=== PATIENT | female | born 1960 | race Caucasian/White ===

== ENCOUNTER 2022-12-01 11:21 | Outpatient (CLI) | payer MEDICARE, SELFPAY ==
[2022-12-01 13:53] LABS: Basophils Percent Auto 0.4 % (0.2-1.2); Eosinophils Absolute Auto 0.1 K/mm3 (0-0.3); Eosinophils Percent Auto 1.6 % (0-4.4); Hematocrit 40.8 % (37.0-47.0); Hemoglobin 13.3 g/dL (12.0-15.0); Immature Granulocyte Absolute 0.02 K/mm3 (0.00-0.031); Immature Granulocyte Percent A 0.2 % (0-0.5); Lymphocytes Absolute Auto 2.59 K/mm3 (0.9-3.2); Lymphocytes Percent Auto 32.3 % (18.3-44.2); Mean Corpuscular HGB Conc 32.6 g/dl (32-36); Mean Corpuscular Hemoglobin 30.6 pg (26-34); Mean Platelet Volume 9.1 fl (7.4-10.4); Monocytes Absolute Auto 0.6 K/mm3 (0.1-0.6); Monocytes Percent Auto 7.4 % (2.6-8.5); Neutrophils Absolute Auto 4.7 K/mm3 (1.3-6.7); Neutrophils Percent Auto 58.1 % (45.5-73.1); Platelet Count Result 270 k/mm3 (150-375); Red Blood Count 4.34 M/mm3 (4.2-5.4); Red Cell Distribution Width 12.8 % (11.5-14.5)
[2022-12-01 17:36] LABS: Alanine Aminotransferase 14 U/L (6-35); Albumin Level 4.4 g/dL (3.5-5.1); Alkaline Phosphatase 75 U/L (38-126); Anion Gap 6 mmol/L (8-16); Aspartate Amino Transferase 46 U/L (14-36); Bilirubin,Total 0.9 mg/dL (0.2-1.3); Blood Urea Nitrogen 10 mg/dL (7-17); Calcium 9.5 mg/dL (8.4-10.2); Carbon Dioxide 28 mmol/L (22-30); Chloride 104 mmol/L (98-107); Cholesterol 171 mg/dL (0-200); Estimated Glomerular Filt Rate > 60; Glucose 98 mg/dL (65-110); HDL Direct 47 mg/dL; Sodium 138 mmol/L (137-145); Triglycerides 163 mg/dL (<150)
[2022-12-01 17:47] LABS: LDL Cholesterol Direct 84 mg/dL
[2022-12-01 18:19] LABS: Iron 87 ug/dL (37-170)
[2022-12-01 18:30] LABS: Percent Iron Saturation 35 % (20-50)
[2022-12-01 18:37] LABS: Free T4 Free Thyroxine 1.41 ng/mL (0.78-2.19)
== END 2022-12-01 11:22 | disposition home or self-care (01) ==
LOC: ANHGOSHLAB 11:23
PROVIDERS: PCP Emergency Medicine; Visit Provider Emergency Medicine
DX: D50.9 Iron deficiency anemia, unspecified (principal); Z83.3 Family history of diabetes mellitus; E89.0 Postprocedural hypothyroidism
CPT/HCPCS: 36415; 80053; 80061; 82728; 83036; 83540; 83550; 84439; 84443; 84480; 85025

== ENCOUNTER 2023-02-13 13:17 | Outpatient (CLI) | payer MEDICARE, SELFPAY ==
[2023-02-13 21:58] LABS: Appearance Urine Cloudy (Clear); Bacteria Urine None Seen /hpf; Bilirubin Urine Negative (Negative); Blood Urine Negative (Negative); Calcium Oxalate Crystals Urine Present /hpf; Color Urine Yellow (Yellow); Glucose Urine UA Negative (Negative); Hyaline Casts Urine Present /lpf; Ketones Urine Negative (Negative); Leukocyte Esterase Ur Trace LEU/UL (Negative); Nitrate Urine Negative (Negative); Protein Urine Negative (Negative); RBC Urine 0-2 /hpf (0-2); Squamous Epithelial Cell Urine Occasional /hpf (Few); WBC Urine 0-5 /hpf
[2023-02-13 21:59] LABS: Add Urine Microscopic? YES
== END 2023-02-13 13:18 | disposition home or self-care (01) ==
LOC: ANHGOSHLAB 13:19
PROVIDERS: PCP Emergency Medicine; Visit Provider Emergency Medicine
DX: R30.0 Dysuria (principal)
CPT/HCPCS: 81001

== ENCOUNTER 2023-04-26 01:15 | Day surgery (SDC) | payer MEDICARE, MEDICAID, SELFPAY ==
[2023-04-12 14:53] VITALS: BMI 30.1
--- NOTE | 2023-04-24 11:05 | SUR.PREOP ---
Patient called regarding upcoming procedure. Voicemail left regarding appointment times.
[2023-04-26 10:49] VITALS: BP 136/44; PULSE 48; RESP 18; TEMP 36.1; O2SAT 100
[2023-04-26] MEDS: LACTATED RINGERS 1,000 ML 150 ML IV CONT (11:02)
--- NOTE | 2023-04-26 11:13 | WPDANESEPPF ---
Anes - Initial Pre Proc Eval Procedure: Operation Date: 04/26/23 12:00 Proposed Procedures p Esophagogastroduodenoscopy & Colonoscopy - Demetrius Perla MD Date/Time: 04/26/23 11:13 Surgeon: Demetrius Perla MD Pre Op Diagnosis: Peptic ulcer,hx colon polyps Patient Data Age: 63 Gender: F Height: 1.7 m Weight: 86.5 kg Last Vital Signs Temp 97 F L 04/26/23 10:49 Pulse 48 L 04/26/23 10:49 Resp 18 04/26/23 10:49 BP 136/44 L 04/26/23 10:49 Pulse Ox 100 04/26/23 10:49 O2 Del Method Room Air 04/26/23 10:49 Allergies Allergy/AdvReac Type Severity Reaction Status Date / Time No Known Allergies Allergy Unknown Verified 04/26/23 10:47 Home Medications Medication Instructions Recorded Confirmed Type fluticasone propionate 50 1 spray intranasal PRN PRN Sinus 12/01/22 04/12/23 History mcg/actuation nasal Symptoms spray,suspension omeprazole 40 mg capsule,delayed 40 mg PO DAILY 12/01/22 04/12/23 History release simvastatin 40 mg tablet 40 mg PO DAILY 12/01/22 04/12/23 History escitalopram oxalate 10 mg tablet 10 mg PO DAILY #90 tabs 12/06/22 04/26/23 Rx metoprolol tartrate 50 mg tablet 50 mg PO DAILY #90 tabs 12/06/22 04/12/23 Rx oxybutynin chloride 10 mg 10 mg PO DAILY #90 tabs 12/06/22 04/12/23 Rx tablet,extended release 24 hr sucralfate 100 mg/mL oral 10 ml PO TID PRN gastrointestinal 04/07/23 04/12/23 Rx suspension (Carafate) spasms or cramping #400 mL calcium 600 mg capsule 600 mg PO DAILY 04/12/23 04/12/23 History cholecalciferol (vitamin D3) 50 50 mcg PO DAILY 04/12/23 04/12/23 History mcg (2,000 unit) capsule (Vitamin D3) cranberry 400 mg capsule 400 mg PO DAILY 04/12/23 04/12/23 History docusate sodium 100 mg capsule 100 mg PO DAILY 04/12/23 04/12/23 History (Stool Softener) mecobalamin (vitamin B12) 3,000 mg PO DAILY 04/12/23 04/12/23 History vitamin B complex 1 cap PO DAILY 04/12/23 04/12/23 History levothyroxine 75 mcg tablet 75 mcg PO DAILY #90 tabs 04/19/23 Rx topiramate 100 mg tablet 100 mg PO DAILY #90 tabs 04/19/23 Rx Patient hx anesthesia problems: none Family hx anesthesia problems: none Results Review: All pre-operative results and documents have been reviewed as part of the pre-operative evaluation. [facility] Past Medical History Medical History Allergies Anxiety GERD (gastroesophageal reflux disease) Headache, migraine HTN (hypertension) Thyroid disorder Family History Family History Father No problems noted. Social History Social History (Updated 04/07/23 @ 11:37 by Geri Rojo MA) Smoking status: Never smoker Alcohol intake: current Substance use: never Substance use type: does not use Do You Feel Safe in your Home?: Yes Lack of Transportation: YES Lack of Food: Never True Current Housing: I Have Housing Concerned About Future Housing: No Difficulty Paying Gas/Electric Bills: No Difficulty Paying for Meds: No Currently Unemployed: No Education: High School Diploma/GED Difficulty w/ Childcare or Family Care: No Living arrangements: with family Spiritual care concerns: No Anes - Eval Final PreProcedure Day of Procedure 04/26/23 11:13 Patient weight: obese Heart: regular rate and rhythm Lungs: clear to auscultation Airway: Mallampati scale class II Neurological: alert and oriented Last oral intake: >/= 8 hours ASA classification: III Emergent: no Anesthetic plan: proceed Anesthesia type and monitoring: general GIVS and standard monitoring Results Review: All pre-operative results and documents have been reviewed as part of the pre-operative evaluation. Informed Consent: The patient's anesthetic plan and its attendant risks and benefits were discussed with the patient/family/POA. Questions were solicited and answers provided to the
--- NOTE | 2023-04-26 11:45 | PM.HPGS ---
History of Present Illness History of Present Illness Consent: Risks, benefits, and alternatives have been discussed and questions answered. Patient agrees to proceed with procedure. Chief complaint: Peptic ulcer,hx colon polyps Narrative: Nirali Oropeza is a 63 year old female with upper abdominal pain for few weeks, she is using ppi. Also had colon polyps. Review of Systems Constitutional: Constitutional: Denies headache(s) and Denies weakness Eyes: Eyes: Denies blurry vision ENT: Reports Normal hearing present, Denies headache(s) and Denies neck pain Cardiovascular: Cardiovascular: Denies chest pain and Denies dyspnea Respiratory: Respiratory: Denies dyspnea Gastrointestinal: Gastrointestinal: Reports no additional gastrointestinal complaints Genitourinary: Genitourinary: Denies dysuria Musculoskeletal: Musculoskeletal: Denies neck pain Integumentary/Breasts: Skin/Breast: Denies dry skin Neurologic: Reports Normal hearing present, Denies headache(s) and Denies weakness Psychiatric: Psychiatric: Denies anxiety Endocrine: Endocrine: Denies change in body appearance Hematologic/Lymphatic: Hematologic/Lymphatic: Denies easy bleeding Allergic/Immunologic: Allergic/Immunologic: Denies urticaria PMFSH Past Medical History Medical History (Updated 04/26/23 @ 11:46 by Demetrius Perla MD) Abdominal pain Allergies Anxiety Colon polyp GERD (gastroesophageal reflux disease) Headache, migraine HTN (hypertension) Thyroid disorder Family History Family History Father No problems noted. Social History Social History (Updated 04/07/23 @ 11:37 by Geri Rojo MA) Smoking status: Never smoker Alcohol intake: current Substance use: never Substance use type: does not use Do You Feel Safe in your Home?: Yes Lack of Transportation: YES Lack of Food: Never True Current Housing: I Have Housing Concerned About Future Housing: No Difficulty Paying Gas/Electric Bills: No Difficulty Paying for Meds: No Currently Unemployed: No Education: High School Diploma/GED Difficulty w/ Childcare or Family Care: No Living arrangements: with family Spiritual care concerns: No Meds Home Medications and Allergies Home Medications Medication Instructions Recorded Confirmed Type fluticasone propionate 50 1 spray intranasal PRN PRN Sinus 12/01/22 04/12/23 History mcg/actuation nasal Symptoms spray,suspension omeprazole 40 mg capsule,delayed 40 mg PO DAILY 12/01/22 04/12/23 History release simvastatin 40 mg tablet 40 mg PO DAILY 12/01/22 04/12/23 History escitalopram oxalate 10 mg tablet 10 mg PO DAILY #90 tabs 12/06/22 04/26/23 Rx metoprolol tartrate 50 mg tablet 50 mg PO DAILY #90 tabs 12/06/22 04/12/23 Rx oxybutynin chloride 10 mg 10 mg PO DAILY #90 tabs 12/06/22 04/12/23 Rx tablet,extended release 24 hr sucralfate 100 mg/mL oral 10 ml PO TID PRN gastrointestinal 04/07/23 04/12/23 Rx suspension (Carafate) spasms or cramping #400 mL calcium 600 mg capsule 600 mg PO DAILY 04/12/23 04/12/23 History cholecalciferol (vitamin D3) 50 50 mcg PO DAILY 04/12/23 04/12/23 History mcg (2,000 unit) capsule (Vitamin D3) cranberry 400 mg capsule 400 mg PO DAILY 04/12/23 04/12/23 History docusate sodium 100 mg capsule 100 mg PO DAILY 04/12/23 04/12/23 History (Stool Softener) mecobalamin (vitamin B12) 3,000 mg PO DAILY 04/12/23 04/12/23 History vitamin B complex 1 cap PO DAILY 04/12/23 04/12/23 History levothyroxine 75 mcg tablet 75 mcg PO DAILY #90 tabs 04/19/23 Rx topiramate 100 mg tablet 100 mg PO DAILY #90 tabs 04/19/23 Rx Allergies Allergy/AdvReac Type Severity Reaction Status Date / Time No Known Allergies Allergy Unknown Verified 04/26/23 10:47 Vital Signs Vital Signs - 24 hr 04/26/23 10:49 Temperature 97 F L Pulse Rate 48 L Respiratory Rate 18 Blood Pressure 136/4
[2023-04-26 12:19] VITALS: BP 122/59; PULSE 62; RESP 22; O2SAT 100
[2023-04-26 12:29] VITALS: BP 118/57; PULSE 60; RESP 14; O2SAT 100
[2023-04-26 12:39] VITALS: BP 118/56; PULSE 60; RESP 14; O2SAT 100
== END 2023-04-26 12:53 | disposition home or self-care (01) ==
PROVIDERS: PCP Emergency Medicine; Visit Provider Internal Medicine Gastroenterology
PROC: 0DJ08ZZ Inspection of Upper Intestinal Tract, Via Natural or Artificial Opening Endoscopic (ICD-10-PCS; CPT 43235; principal; 2023-04-26 12:00)
DX: Z12.11 Encounter for screening for malignant neoplasm of colon (principal); K63.5 Polyp of colon; D12.0 Benign neoplasm of cecum; K64.8 Other hemorrhoids; K44.9 Diaphragmatic hernia without obstruction or gangrene; K29.50 Unspecified chronic gastritis without bleeding; I10 Essential (primary) hypertension; E07.9 Disorder of thyroid, unspecified; K21.9 Gastro-esophageal reflux disease without esophagitis; F41.9 Anxiety disorder, unspecified; E66.9 Obesity, unspecified; Z68.29 Body mass index [BMI] 29.0-29.9, adult; Z87.11 Personal history of peptic ulcer disease
CPT/HCPCS: 45385; 43239; 88305; J2704; J7120

== ENCOUNTER 2023-12-29 11:26 | Outpatient (CLI) | payer MEDICARE, SELFPAY ==
[2023-12-29 18:01] LABS: Basophils Percent Auto 0.6 % (0.2-1.2); Eosinophils Absolute Auto 0.1 K/mm3 (0-0.3); Eosinophils Percent Auto 1.3 % (0-4.4); Hematocrit 40.4 % (37.0-47.0); Immature Granulocyte Absolute 0.01 K/mm3 (0.00-0.031); Immature Granulocyte Percent A 0.2 % (0-0.5); Lymphocytes Percent Auto 36.5 % (18.3-44.2); Mean Corpuscular HGB Conc 32.2 g/dl (32-36); Mean Corpuscular Hemoglobin 30.3 pg (26-34); Mean Corpuscular Volume 94.2 fl (80-100); Mean Platelet Volume 8.9 fl (7.4-10.4); Monocytes Absolute Auto 0.5 K/mm3 (0.1-0.6); Monocytes Percent Auto 8.4 % (2.6-8.5); Neutrophils Absolute Auto 3.3 K/mm3 (1.3-6.7); Platelet Count Result 283 k/mm3 (150-375); Red Blood Count 4.29 M/mm3 (4.2-5.4); Red Cell Distribution Width 12.6 % (11.5-14.5); White Blood Count 6.3 K/mm3 (4.5-10.0)
[2023-12-29 18:07] LABS: Alanine Aminotransferase 19 U/L (6-35); Albumin Level 4.3 g/dL (3.5-5.1); Alkaline Phosphatase 69 U/L (38-126); Anion Gap 7 mmol/L (4-12); Aspartate Amino Transferase 45 U/L (14-36); Bilirubin,Total 1.1 mg/dL (0.2-1.3); Blood Urea Nitrogen 9 mg/dL (7-17); Calcium 9.7 mg/dL (8.4-10.2); Carbon Dioxide 29 mmol/L (22-30); Chloride 102 mmol/L (98-107); Cholesterol 160 mg/dL (0-200); Estimated Glomerular Filt Rate > 60; Glucose 85 mg/dL (65-110); HDL Direct 49 mg/dL; Potassium 5.1 mmol/L (3.4-5.0); Sodium 138 mmol/L (137-145); Triglycerides 159 mg/dL (<150)
[2023-12-29 18:20] LABS: LDL Cholesterol Direct 65 mg/dL
[2023-12-29 19:00] LABS: Free T4 Free Thyroxine 1.13 ng/mL (0.78-2.19)
== END 2023-12-29 11:27 | disposition home or self-care (01) ==
LOC: ANHGOSHLAB 11:27
PROVIDERS: PCP Emergency Medicine; Visit Provider Student in an Organized Health Care Education/Training Program
DX: E03.9 Hypothyroidism, unspecified (principal); D50.9 Iron deficiency anemia, unspecified
CPT/HCPCS: 36415; 80053; 80061; 82728; 84439; 84443; 85025

== ENCOUNTER 2023-12-29 11:36 | Outpatient (CLI) | payer MEDICARE, SELFPAY ==
--- NOTE | ~2023-12-29 | XR_ITS ---
XR hip RT min 2V 12/29/2023 11:46 Indication: Right hip pain Procedure: 2 views right hip Comparison: 10/29/2017 Findings: Mild osteoarthritis right hip. No fracture, subluxation or dislocation. No foreign bodies. Impression: 1: Mild osteoarthritis of the right hip. Reviewed, dictated and finalized at location B. Impression: 1: Mild osteoarthritis of the right hip.
== END 2023-12-29 11:37 | disposition home or self-care (01) ==
LOC: GOSHIMG 11:37
PROVIDERS: PCP Student in an Organized Health Care Education/Training Program; Visit Provider Student in an Organized Health Care Education/Training Program
DX: M16.11 Unilateral primary osteoarthritis, right hip (principal)
CPT/HCPCS: 73502

== ENCOUNTER 2024-04-09 20:28 | Outpatient (NON) | payer MEDICARE, SELFPAY ==
--- OUTSIDE RECORDS SUMMARY | 2024-04-09 20:32 | XMS_ITS | Encounter Summary ---
Author Organization [facility] Address [address] [facility] [place] [address] Phone Care Team Providers Care Java Manager Name Role Phone BnejiRhonda nicholson Lion AVILA, DRAIN CLEANER Unavailable Leticia David MD Unavailable Boom Ram [facility] Primary Care Provider [phone] Reason for Visit * Reason Comments Medication Refill Encounter Details Date Type Department Care Team (Late st Contact Info) Description 10/16/2022 Refill [facility] - Primary Care - Felix [address] [place] [address] Abel Pope MD [address] [place] [address] Medication Refill Social History Tobacco Use Types Packs/Day Years Used Date Smoking Tobacco: Former Cigarettes Q uit: 09/11/1978 Smokeless Tobacco: Never Alcohol Use Standard Drinks/Week Comments No 0 (1 standard drink = 0.6 oz pur e alcohol) use to drink heavy-quit 1989 PHQ-2 Answer Date Recorded Total Score - Questions 1-9 0 01/11 Sexually Active Control Partners Comments Never Comments No Sex and Gender Information Value Date Recorded Sex Assigned at Not on file Legal Sex Female 11:42 PM CDT Gender Identity Not on file Sexual Orientation Not on file COVID-19 Exposure Response Date Recorded In the last 10 days, have yo u been in contact with someone who was confirmed or suspected to have Coronavirus/COVID-19? No / Unsure 10/03/2022 1:23 PM CDT documented as of this encounter Miscellaneous Notes * Telephone Encounter - Kimber New RN - 10/17/2022 8:20 AM CDT Refill requested too soon. documented in this encounter Plan of Treatment Not on file documented as of this encounter Visit Diagnoses Diagnosis Mechanical low back pain Lumbago documented in this encounter Additional Health Concerns Assessment Noted Time PHQ-9 Depression Total Score: 0 01/21/20 2:00 PM LIFE SCIENCES TEACHER documented as of this encounter Care Teams Java Manager Relationship Specialty Start Date End Date Boom Ram PAC [address] [place] [address] PCP - General Physician Cell Installer 01/20/22 Rhonda Leblanc, SYSTEMS DEVELOPMENT CONSULTANT, DRAIN CLEANER Nurse Practitioner Advanced Practice Nurse 11/20/15 Leticia David MD [address] [phone] Consulting Physician Endocrinology 09/28/21 documented as of this encounter
--- OUTSIDE RECORDS SUMMARY | 2024-04-09 20:32 | XMS_ITS | Clinical Summary ---
Author Organization [facility] Address [address] [facility], [address] [address] Phone Care Team Providers Care Marine Painter Name Role Phone Rhonda Leblanc APRN, GREGG Unavailable Leticia David MD Unavailable Boom Ram PAC Primary Care Provider [phone] Allergies No known active allergies Medications aspirin EC 81 MG Tablet Delayed Response Take 81 mg by mouth daily. Active cetirizine (ZYRTEC) 10 MG Tablet Take 1 Tab by mouth daily. 90 Tab 3 7 Active metoprolol tartrate (LOPRESSOR) 50 MG Tablet Take 1 Tab by mouth 2 times daily. 180 Tab 3 7 Active CRANBERRY PO Take 1 Tab by mouth 2 times daily. Active Biotin 1000 MCG Tablet Take 1 Tab by mouth daily. Active Cholecalciferol 50 mcg Tablet Take 1 Tab by mouth daily. Active omeprazole (PriLOSEC) 40 MG CAPSULE DELAYED RELEASE Take 40 mg by mouth daily. 2 Active topiramate (TOPAMAX) 100 MG TabletIndication s:Migraine Take 1 Tablet by mouth daily. Indications: Migraine Headache 60 Tablet 1 3 Active Cyanocobalamin (VITAMIN B-12 PO) Take by mouth. Active oxybutynin (DITROPAN-XL) 10 MG TABLET SR 24 HR TAKE 1 TABLET BY MOUTH EVERY DAY 90 Tablet 3 Active levothyroxine (SYNTHROID) 75 MCG Tablet TAKE 1 TABLET BY MOUTH EVERY DAY 90 Tablet 1 3 Active cyclobenzaprine (FLEXERIL) 10 MG Tablet TAKE 1 TABLET BY MOUTH NIGHTLY 90 Tablet 3 Active fluticasone (FLONASE) 50 MCG/ACT SuspensionIndica tions:Environmen solo and seasonal allergies SPRAY 1-2 SPRAYS INTO EACH NOSTRIL EVERY DAY DIRECTED 48 mL 1 3 Active meloxicam (MOBIC) 15 MG TabletIndication s:Mechanical low back pain TAKE 1 TABLET BY MOUTH EVERY DAY 90 Tablet 3 Active simvastatin (ZOCOR) 40 MG Tablet TAKE 1 TABLET BY MOUTH EVERY DAY IN THE EVENING 90 Tablet 4 Active escitalopram (LEXAPRO) 20 MG TabletIndication s:Depression, unspecified depression type TAKE 1 TABLET BY MOUTH EVERY DAY 90 Tablet 4 Active Active Problems Problem Noted Date Diagnosed Date History of gastric bypass 06/07/2022 Obesity due to excess calories without serious c omorbidity 09/26/2019 Normochromic anemia 10/25/2018 Right low back pain 08/07/2017 Postoperative hypothyroidism 02/06/2017 Iron deficiency anemia due to chronic blood loss 02/06/2017 Prediabetes 02/06/2017 High blood pressure 09/16/2016 Depression 09/16/2016 Osteoarthritis of multiple joints 09/16/2016 Migraine headache 09/16/2016 Hyperlipidemia 09/16/2016 Irritable bowel syndrome without diarrhea 2016 Anxiety 09/16/2016 Seasonal allergic rhinitis 09/16/2016 Thyroid nodule 03/10/2016 Gastritis without bleeding 11/20/2015 B12 deficiency Resolved Problems Problem Noted Date Diagnosed Date Resolved Date Normocytic anemia 04/27/2017 11/04/2017 Immunizations Immunization Administration Dates Next Due Covid-19, Mrna, Lnp-s, Pf, 3 0 Mcg/0.3 Ml Dose (MediaBrix) 06/29/2020,06/08/2020 Influenza Vaccine 02/26/2013, 2,11/22/2010,2009,12/29/2008,01/29/2008,01/11/2007 Influenza Vaccine greater than 3 yrs 01/29/2016 Influenza Vaccine, Quadrivalent, PF 01/20/2022,1 ,01/24/2017 Influenza, Injectable, Quadrivalent 01/14/2016 Influenza, Seasonal, Injecta ble, Undefined 01/29/2016 TDAP Vaccine 02/23/2016 Tuberculin Skin Test; Purifi ed Protein Derivative Solutiol 12/04/2000 Family History Medical History Relation Name Comments Heart Attack Father Heart Disease Father Cancer Maternal Uncle Liver Cancer Maternal Uncle Alzheimer's Disease Mother Cancer Sister 1 rectal-56 and k idney Diabetes Sister 1 Diabetes Sister 2 Relation Name Status Comments Father Maternal Uncle Mother Sister 1 Sister 2 Social History Tobacco Use Types Packs/Day Years Used Date Smoking Tobacco: Former Cigarettes Q uit: 09/11/1978 Smokeless Tobacco: Never Tobacco Cessation:Counseling Given: Not Answered Alcohol Use Standard Drinks/Week Comments No 0 [...] on file Sexual Orientation Not on file Last Filed Vital Signs Vital Sign Reading Time Taken Comments Blood Pressure 124/80 10/03/2022 1:44 PM CDT Pulse 51 10/03/2022 1:44 PM CDT Temperature 36.1 ??C (97 ??F) 10/03/2022 1:44 PM CDT Respiratory Rate 18 10/03/2022 1:44 PM CDT Oxygen Saturation 98% 10/03/2022 1:44 PM CDT Inhaled Oxygen Concentration - - Weight 93.4 kg (206 lb) 10/03/2022 1:44 PM CDT Height 170.2 cm (5' 7 ) 10/03/2022 1:44 PM CDT Body Mass Index 32.26 10/03/2022 1:44 PM CDT Plan of Treatment Health Maintenance Due Date Last Done Comments Hepatitis C Virus (HCV) Screening 1960 Cologuard 2010 Immunochemical Fecal Occult Blood 2010 Pneumococcal Immunization (50+ years) (1 of 1 - PCV) 2010 Zoster Immunization (1 of 2) 2010 Influenza Immunization (#1) 2023 11, 01/10/2019, 01/24/2017, Additional history exists SARS-COV-2 Immunization ( season) 2023 06/29/2020, 06/08/2020 Mammogram 03/11/2024 03/11/2022, 09/11, 09/04/2017, Additional history exists Colonoscopy 10/21/2025 10/21/2020, 12/12, 12/29/2014 Colorectal Cancer Screening 10/21/2025 Td Immunization Every 10 Years (Adults With 1 Tdap) 02/22/2026 02/23/2016 Respiratory Syncytial Virus (RSV) Immunization (Adult) (1 - 1-dose 75+ series) 2035 10/21/2020, 12/12, 12/29/2014 Pap Smear Discontinued 10/04/2016 Cervical Cancer Screening (CCS) Discontinued HPV/Cotest Discontinued Hepatitis B Immunization Aged Out No longer eligible based on patient's age to complete this topic Meningococcal Immunization (ACWY) Aged Out No longer eligible based on patient's age to complete this topic Pneumococcal Immunization Combined Aged Out No longer eligible based on patient's age to complete this topic Rotavirus Immunization Aged Out No lo nger eligible based on patient's age to complete this topic Procedures Procedure Name Priority Date/Time Associated Diagnosis Comments PILAR SCREENING BILATERAL DIGITAL W CAD W AWILDA Routine 03/11/2022 3:35 PM SPEECH AND DRAMA TEACHER Encounter for screening mammogram for malignant neoplasm of breast PATHOLOGY CYTOLOGY BED AND BREAKFAST OPERATOR Routine 10/04/2016 4:18 PM CDT Well woman exam with routine gynecological exam HM COLONOSCOPY Routine 12/29/2014 from Last 3 Months or Most Recently Relevant to Health Maintenance Results * PILAR SCREENING BILATERAL DIGITAL W CAD W AWILDA (03/11/2022 3:35 PM SPEECH AND DRAMA TEACHER) Anatomical Region Laterality Modality breast Bilateral Mammography 03/11/2022 2:58 PM SPEECH AND DRAMA TEACHER Narrative 03/15/2022 8:16 AM SPEECH AND DRAMA TEACHER - PILAR SCREENING BILATERAL DIGITAL W CAD W AWILDA BILATERAL DIGITAL SCREENING MAMMOGRAM 3D/2D WITH CAD WITH MEDIOLATERAL OBLIQUE CRANIOCAUDAL: 03/11/2022 The study was acquired using digital technology and interpreted from soft copy. Current study was also evaluated with ICAD version 7.2. 2D digital mammographic views, as well as 3D digital tomosynthesis were performed in the CC and MLO projections. ?? CLINICAL: Routine screening. Patient has no complaints. No personal history of cancer. No family history of breast cancer. Patient reports over a 35 pound weight loss since last mammogram. ?? COMPARISONS: Comparison is made to exams dated: ??10/09/2019, 09/04/2017, [facility] ?? BREAST TISSUE:The tissue of both breasts is predominantly fatty. ?? FINDINGS: No significant masses, calcifications, or other findings are seen in either breast. ?? There has been no significant interval change. IMPRESSION: BI-RAD 1 NEGATIVE There is no mammographic evidence of malignancy. A 1 year screening mammogram is recommended. ?? A letter will be sent to the patient with these results. The patient will be entered into a reminder system with a target due date of 1 year for her next screening exam. Electronically signed by: Cory Hassan M.D. ? ll/penrad:03/11/2022 18:49:58 ?? Senior Production Supervisor(s): Marie ?? RT Cruz(Marcio)(M), [facility] letter sent: Normal Exam ?? Reading location: [facility] BI-RADS: 1 Negative Procedure Note Cory Hassan MD - 03/15/2022 - PILAR SCREENING BILATERAL DIGITAL W CAD W AWILDA BILATERAL DIGITAL SCREENING MAMMOGRAM 3D/2D WITH CAD WITH MEDIOLATERAL OBLIQUE CRANIOCAUDAL: 03/11/2022 The study was acquired using digital technology and interpreted from soft copy. Current study was also evaluated with ICAD version 7.2. 2D digital mammographic views, as well as 3D digital tomosynthesis were performed in the CC and MLO projections. CLINICAL: Routine screening. Patient has no complaints. No personal history of cancer. No family history of breast cancer. Patient reports over a 35 pound weight loss since last mammogram. COMPARISONS: Comparison is made to exams dated: 10/09/2019, 09/04/2017, and 10/04/2016 [facility]. BREAST TISSUE:The tissue of both breasts is predominantly fatty. FINDINGS: No significant masses, calcifications, or other findings are seen in either breast. There has been no significant interval change. IMPRESSION: BI-RAD 1 NEGATIVE There is no mammographic evidence of malignancy. A 1 year screening mammogram is recommended. A letter will be sent to the patient with these results. The patient will be entered into a reminder system with a target due date of 1 year for her next screening exam. Electronically signed by: Cory quinonez/diana:03/11/2022 18:49:58 Senior Production Supervisor(s): RT Jeyson(R)(M), [facility] letter sent: Normal Exam Reading location: [facility] BI-RADS: 1 Negative us Boom Ram [facility] IMG MAMMO ORDERABLES Final R esult * PATHOLOGY CYTOLOGY BED AND BREAKFAST OPERATOR (10/04/2016 4:18 PM CDT) SPECIMEN ADEQUACY Satisfactory for evaluation, squamous cells only. History of hysterectomy noted 10/07/2016 1:40 PM CDT [facility] DESCRIPTIVE DIAGNOSIS Negative for intraepithelial lesions. No dysplastic cells present. 10/07/2016 1:40 PM CDT [facility] MATED EXAMINATION Analysis of this sample has been assisted by an automated imaging and review system ([employer] [facility], ED01, [place], [place]). This case is further evaluated and finalized by a baggage inspector and/or pathologist. 10/07/2016 1:40 PM CDT [facility] DISCLAIMER The PAP smear is a screening test designed to detect cancerous or precancerous cells of the uterine cervix. It is one of the best means available for detection of cervical cancer but still carries an inherent false-negative rate. ??The consequences of a false-negative PAP result can be minimized by adhering to current screening guidelines. ??The following are general guidelines recommended by the ACS, ASCP, ASCCP, and ACOG: ??PAP testing is recommended every three years for women 21-29, Co-Testing , a PAP test in conjunction with an HPV (Human Papillomavirus) test for women ages 30-65, and no PAP or HPV testing for women under the age of 21 or older than 65 unless clinically indicated. 10/07/2016 1:40 PM CDT [facility] Case Report Gynecologic Cytology Report ? Case: [id number] ? Authorizing Provider: ??Harvey Roger MD ? Collected: ? 10/04/2016 04:18 PM ? Ordering Location: ? [facility] ? Received: ?10/04/2016 04:18 PM ? GROUP - OBSTETRICS AND ? GYNECOLOGY - ANASTACIO ? First Screen: ?Lian Bettencourt ? Specimen: ?Cervical/Endocerv ical, liquid based thin layer preparation (Thin Prep??), ? CERVIX/ENDOCERVIX ? 10/07/2016 1:40 PM CDT [facility] HPV Reflex if ASCUS? No 10/07/2016 1:40 PM CDT [facility] Specimen of unknown material (specimen) (Cervix/Endocerv ix) 10/04/2016 4:18 PM CDT 10/04/2016 4:18 PM CDT us Harvey Roger MD PATHOLOGY/CYTOLOGY ORDERABL ES Final Result Performing Organization Address [facility] de Phone Number [facility] [address] [place] [address], * COLONOSCOPY (12/29/2014) us Nora Haywood MD PROCEDURE/MINOR SURGICA L ORDERABLES Final Result from Last 3 Months or Most Recently Relevant to Health Maintenance Insurance MEDICAID [place] MEDICARE C AETNA MEDICARE C [facility] on file Care Teams Marine Painter Relationship Specialty Start Date End Date Boom Ram PAC [address] [place] [address] PCP - General Physician Hospital Corpsman 01/20/22 Rhonda Leblanc, MARKETING STRATEGY MANAGER, ALUMINUM SIDING APPLICATOR Nurse Practitioner Advanced Practice Nurse 11/20/15 Leticia David MD [address] [phone] Consulting Physician Endocrinology 09/28/21
--- OUTSIDE RECORDS SUMMARY | 2024-04-09 20:32 | XMS_ITS | Referral Summary ---
Author Organization [facility] Address [address] [place] [address] Care Team Providers Care Sales Support Engineer Name Role Phone Martha Gray MD Primary Care Provider [phone] Source Comments [facility],non-owned Affiliates and Associated Physician Practices is amultiple site organization consisting of ambulatory clinics and hospital sitesin [place], [place], [place] and [place]. This disclosure is being madepursuant to the Care Everywhere program and may not contain all information available regarding this patient. Last updated 17.[facility] Allergies No known active allergies Medications * Be aware that medications may not be up to date on this document. Alwaysverify current medications with the patient. Medication Sig Dispensed Refills Start Date End Date Status ferrous sulfate EC (FERROUS SULFATE) 324 (65 FE) MG tablet Take 325 mg by mouth. 10/27/2016 Active levothyroxine (SYNTHROID) 25 MCG tablet Take by mouth. 09/30/2016 Active metoprolol tartrate (LOPRESSOR) 50 MG tablet Take 50 mg by mouth BID. 05/20/2016 Active traMADol (ULTRAM) 50 MG tablet Take 50 mg by mouth q8h PRN. 0 05/10/2016 Active simvastatin (ZOCOR) 20 MG tablet Take 20 mg by mouth DAILY. 1 04/27/2016 Active hyoscyamine 0.125 MG tablet 2 05/11/2016 Active omeprazole (PRILOSEC) 40 MG capsule 9 05/09/2016 Active cetirizine (ZYRTEC) 10 MG tablet Take 10 mg by mouth QDAY PRN (Allergies). 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 Social History Tobacco Use Types Packs/Day Years Used Date Smoking Tobacco: Never Smokeless Tobacco: Never Alcohol Use Standard Drinks/Week Comments No 0 (1 standard drink = 0.6 oz pur e alcohol) Sex and Gender Information Value Date Recorded Sex Assigned at Not on file Gender Identity Not on file Sexual Orientation Not on file Last Filed Vital Signs Vital Sign Reading Time Taken Comments Blood Pressure 149/90 06/12/2018 3:36 PM CDT Pulse 50 06/12/2018 3:36 PM CDT Temperature 36.8 ??C (98.2 ??F) 06/12/2018 12:24 PM C DT Respiratory Rate 16 06/12/2018 3:36 PM CDT Oxygen Saturation 100% 06/12/2018 3:36 PM CDT Inhaled Oxygen Concentration - - Weight 118.8 kg (262 lb) 06/21/2018 9:57 AM CDT Height 170.2 cm (5' 7 ) 06/21/2018 9:57 AM CDT Body Mass Index 41.04 06/21/2018 9:57 AM CDT Plan of Treatment Not on file Procedures Procedure Name Priority Date/Time Associated Diagnosis Comments BASIC METABOLIC PANEL (CALCIUM TOTAL) Routine 06/14/2016 10:00 AM CDT from Last 3 Months or Most Recently Relevant to Health Maintenance Results * BASIC METABOLIC PANEL (CALCIUM TOTAL) (06/14/2016 10:00 AM CDT) BUN 10 7 - 26 mg/dL [facility] Creatinine 0.7 0.6 - 1.2 mg/dL [facility] Sodium 139 136 - 145 mmol/L [facility] Potassium 4.4 3.5 - 4.5 mmol/L [facility] Chloride 104 98 - 107 mmol/L [facility] CO2 25 22 - 29 mmol/L [facility] Glucose 113 70 - 115 mg/dL [facility] Calcium 9.5 8.4 - 10.2 mg/dL [facility] Anion Gap 14 8 - 18 [facility] BUN/Creatinine Ratio 14 7 - 23 [facility] Osmolality Calculated 288 270 - 300 mOsm/kg [facility] eGFR >60 >60 mL/min/1.7 3 m2 [facility] Blood specimen (specimen) BLOOD SPECIMEN / Unknown 06/14/2016 10:00 AM CDT 06/14/2016 10:57 AM CDT Leonorchela Wilkes August CONTAINER FILLER-COLLECTIONS AGENT LAB - AMYDA KITTY ORDERABLES Performing Organization Address City/State/[facility] Co de Phone Number [facility] [address] [phone] from Last 3 Months or Most Recently Relevant to Health Maintenance Care Teams Sales Support Engineer Relationship Specialty Start Date End Date Martha Gray MD PCP - General 05/04/18
--- OUTSIDE RECORDS SUMMARY | 2024-04-09 20:32 | XMS_ITS | Encounter Summary ---
Author Organization [facility] Address [address] [facility] [place] [address] Phone Care Team Providers Care Consumer Safety Officer Name Role Phone Benji Rhonda Seymour APRN, GREGG Unavailable Leticia David MD Unavailable Boom Ram Primary Care Provider [phone] Reason for Visit * Reason Comments Medication Refill Encounter Details Date Type Department Care Team (Late Contact Info) Description 08/23/2022 Refill [facility] - Primary Care - [place] [address] [place] [address] Boom Ram PAC [address] [place] [address] Medication Refill Social History Tobacco Use Types [...] on file Sexual Orientation Not on file documented as of this encounter Miscellaneous Notes * Telephone Encounter - Boom Ram PAC - 08/24/2022 8:37 AM CDT Rx request approved * Telephone Encounter - Mariana Fatima RN - 08/23/2022 8:07 AM CDT Medication failed the protocol, provider to review and approve the medication order if appropriate. Requested Prescriptions Pending Prescriptions Disp Refills simvastatin (ZOCOR) 40 MG Tablet [Pharmacy Med Name: SIMVASTATIN 40 MG TABLET] 90 Tablet 0 Sig: TAKE 1 TABLET BY MOUTH EVERY DAY IN THE EVENING [facility] CoA Reductase Inhibitors Protocol Passed - 08/23/2022 2:03 AM Passed - Visit with relevant provider in past 12 months or upcoming 90 days Recent Visits Date Type Provider Dept 07/20/22 Office Visit Boom Ram PAC [facility] 06/09/22 Office Visit Boom Ram [facility] 05/19/22 Office Visit Boom Ram [facility] 01/20/22 Office Visit Boom Ram [facility] Showing recent visits within past 365 days and meeting all other requirements Future Appointments No visits were found meeting these conditions. Showing future appointments within next 90 days and meeting all other requirements Passed - Lipid panel in past 12 months LDL Date Value Ref Range Status 07/20/2022 74 5 - 130 mg/dL Final 12/11/2021 74 0 - 130 mg/dL Final HDL CHOLESTEROL Date Value Ref Range Status 07/20/2022 47.4 >40 mg/dL Final CHOLESTEROL Date Value Ref Range Status 07/20/2022 147 <=200 mg/dL Final TRIGLYCERIDES Date Value Ref Range Status 07/20/2022 127 <150 mg/dL Final VLDL Date Value Ref Range Status 07/20/2022 25 5 - 55 mg/dL Final CHOL/HDL RATIO Date Value Ref Range Status 07/20/2022 3.1 0.0 - 4.4 Final NON-HDL CHOLESTEROL Date Value Ref Range Status 07/20/2022 99.6 <130 mg/dL Final oxybutynin (DITROPAN-XL) 10 MG TABLET SR 24 HR [Pharmacy Med Name: OXYBUTYNIN CL ER 10 MG TABLET] 90 Tablet 0 Sig: TAKE 1 TABLET BY MOUTH EVERY DAY Urinary Anticholinergics Protocol Passed - 08/23/2022 2:03 AM Passed - Visit with relevant provider in past 12 months or upcoming 90 days Recent Visits Date Type Provider Dept 07/20/22 Office Visit Boom Ram, [facility] 06/09/22 Office Visit Boom Ram, [facility] 05/19/22 Office Visit Boom Ram, [facility] 01/20/22 Office Visit Boom Ram, [facility] Showing recent visits within past 365 days and meeting all other requirements Future Appointments No visits were found meeting these conditions. Showing future appointments within next 90 days and meeting all other requirements Passed - GFR greater than or equal to 30 in past 12 months GFR, EST. NONAFRICAN Date Value Ref Range Status 06/06/2022 >60 >=60 Final cyclobenzaprine (FLEXERIL) 10 MG Tablet [Pharmacy Med Name: CYCLOBENZAPRINE 10 MG TABLET] 90 Tablet0 Sig: Take 1 Tablet by mouth nightly. Not Delegated - Muscle Relaxants Protocol Failed - 08/23/2022 2:03 AM Failed - This refill cannot be delegated Passed - Visit with relevant provider in past 12 months or upcoming 90 days Recent Visits Date Type Provider Dept 07/20/22 Office Visit Boom Ram [facility] 06/09/22 Office Visit Boom Ram [facility] 05/19/22 Office Visit Boom Ram [facility] 01/20/22 Office Visit Boom Ram [facility] Showing recent visits within past 365 days and meeting all other requirements Future Appointments No visits were found meeting these conditions. Showing future appointments within next 90 days and meeting all other requirements documented in this encounter Plan of Treatment Not on file documented as of this encounter Visit Diagnoses Not on filedocumented in this encounter Additional Health Concerns Assessment Noted Time PHQ-9 Depression Total Score: 0 01/21/20 2:00 PM RUBBER CUTTER AND SHAPE CARVER documented as of this encounter Care Teams Consumer Safety Officer Relationship Specialty Start Date End Date Boom Ram, PAC [address] [place] [address] PCP - General Physician Fringe Maker 01/20/22 Rhonda Leblanc, INSURANCE BILLER, CARPET JOURNEYMAN Nurse Practitioner Advanced Practice Nurse 11/20/15 Leticia David MD [address] [phone] Consulting Physician Endocrinology 09/28/21 documented as of this encounter
--- OUTSIDE RECORDS SUMMARY | 2024-04-09 20:32 | XMS_ITS | Encounter Summary ---
Author Organization [facility] Address [address] [facility] [place] [address] Phone Care Team Providers Care Hatch Tender Name Role Phone Rhonda Leblanc APRN, GREGG Unavailable Leticia David MD Unavailable Boom Ram Primary Care Provider Reason for Visit * Reason Comments Medication Refill Encounter Details Date Type Department Care Team (Late Contact Info) Description 10/26/2022 Refill [facility] - Primary Care - [place] [address] [place] [address] Boom Ram PAC [address] [place] [address] Medication Refill Social History Tobacco [...] encounter Miscellaneous Notes * Telephone Encounter - Mariana Fatima RN - 10/26/2022 1:46 PM CDT Refill too soon documented in this encounter Plan of Treatment Not on file documented as of this encounter Visit Diagnoses Diagnosis Environmental and seasonal allergies documented in this encounter Additional Health Concerns Assessment Noted Time PHQ-9 Depression Total Score: 0 01/21/20 22 2:00 PM AREA FIELD WORKER documented as of this encounter Care Teams Hatch Tender Relationship Specialty Start Date End Date Boom Ram PAC [address] [place] [address] PCP - General Physician Operations Section Manager 01/20/22 Rhonda Leblanc, WATER AND FIRE TECHNICIAN, GIN POLE OPERATOR Nurse Practitioner Advanced Practice Nurse 11/20/15 Leticia David MD [address] [phone] Consulting Physician Endocrinology 09/28/21 documented as of this encounter
--- OUTSIDE RECORDS SUMMARY | 2024-04-09 20:32 | XMS_ITS | Encounter Summary ---
Author Organization [facility] Address [address] [facility] [place] [address] Phone Care Team Providers Care Oncology Physician Assistant Name Role Phone Benji Rhonda Seymour APRN, GREGG Unavailable Leticia David MD Unavailable Boom Ram Primary Care Provider Reason for Visit * Reason Comments Medication Refill Encounter Details Date Type Department Care Team (Late Contact Info) Description 03/23/2023 Refill [facility] - Primary Care - [place] [address] [place] [address] Boom Ram PAC [address] [place] [address] Medication Refill Social History Tobacco [...] on file documented as of this encounter Plan of Treatment Not on file documented as of this encounter Visit Diagnoses Diagnosis Mechanical low back pain Lumbago Depression, unspecified depression type documented in this encounter Additional Health Concerns Assessment Noted Time PHQ-9 Depression Total Score: 0 01/21/20 2:00 PM SKIVER HAND documented as of this encounter Care Teams Oncology Physician Assistant Relationship Specialty Start Date End Date Boom Ram, PAC [address] [place] [phone] PCP - General Physician Cotton Puller 01/20/22 Rhonda Leblanc, PETROLEUM REFINERY OPERATOR, KNITTING MACHINE MECHANIC Nurse Practitioner Advanced Practice Nurse 11/20/15 Leticia David MD [address] [phone] Consulting Physician Endocrinology 09/28/21 documented as of this encounter
--- OUTSIDE RECORDS SUMMARY | 2024-04-09 20:32 | XMS_ITS | Clinical Summary ---
Author Organization [facility] Address [address] [place] [address] Care Team Providers Care Vice President Of Customer Service Name Role Phone Martha Gray MD Primary Care Provider [phone] Source Comments [facility],non-owned Affiliates and Associated Physician Practices is amultiple site organization consisting of ambulatory clinics and hospital sitesin [place], [place], [place] and [place]. This disclosure is being madepursuant to the Care Everywhere program and may not contain all information available regarding this patient. 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 12 MONTHS 1960 PAP SMEAR 1960 HIV SCREENING 1975 HEPATITIS C SCREENING 02/27/1978 DTAP/TDAP/TD VACCINES (1 - Tdap) 1979 PNEUMOCOCCAL VACCINE 50+ (1 of 1 - PCV) 2010 ZOSTER VACCINE (1 of 2) 2010 SCREENING FOR DIABETES 06/15/2019 06/14/2016 Respiratory Syncytial Virus (RSV) Vaccine Pt: or over 60 yrs (1 - Risk 60-74 years 1-dose series) 2020 COVID-19 VACCINE (1 - 2023- season) 2023 INFLUENZA VACCINE (#1) 2023 7, 01/29/2016, 02/26/2013, Additional history exists DEPRESSION SCREENING 03/13/2024 MEDICARE AWV ? CALENDAR YEAR 2024 HEPATITIS B VACCINE Aged Out No longe r eligible based on patient's age to complete this topic HIB VACCINE Aged Out No longer eligi ble based on patient's age to complete this topic HPV VACCINE Aged Out No longer eligi ble based on patient's age to complete this topic MENINGOCOCCAL (Group B) VACCINE Aged Out No longer eligible based on patient's age to complete this topic MENINGOCOCCAL VACCINE Aged Out No sonam elena eligible based on patient's age to complete this topic Procedures Procedure Name Priority Date/Time Associated Diagnosis Comments BASIC METABOLIC PANEL (CALCIUM TOTAL) Routine 06/14/2016 10:00 AM CDT from Last 3 Months or Most Recently Relevant to Health Maintenance Results * BASIC METABOLIC PANEL (CALCIUM TOTAL) (06/14/2016 10:00 AM CDT) BUN 10 7 - 26 mg/dL [facility] Creatinine 0.7 0.6 - 1.2 mg/dL [facility] Sodium 139 136 - 145 mmol/L [facility] Potassium 4.4 3.5 - 4.5 mmol/L [facility] Chloride 104 98 - 107 mmol/L [facility] CO2 25 22 - 29 mmol/L [facility] Glucose 113 70 - 115 mg/dL [facility] Calcium 9.5 8.4 - 10.2 mg/dL [facility] Anion Gap 14 8 - 18 [facility] BUN/Creatinine Ratio 14 7 - 23 [facility] Osmolality Calculated 288 270 - 300 mOsm/kg [facility] eGFR >60 >60 mL/min/1.7 3 m2 [facility] Blood specimen (specimen) BLOOD SPECIMEN / Unknown 06/14/2016 10:00 AM CDT 06/14/2016 10:57 AM CDT Leonor Koch FIREFIGHTING EQUIPMENT SPECIALIST-MANAGER [facility] - MAYDA KITTY ORDERABLES [facility] [address] [phone] from Last 3 Months or Most Recently Relevant to Health Maintenance Care Teams Vice President Of Customer Service Relationship Specialty Start Date End Date Martha Gray MD PCP - General 05/04/18
--- OUTSIDE RECORDS SUMMARY | 2024-04-09 20:32 | XMS_ITS | Encounter Summary ---
Author Organization [facility] Address [address] [facility] [place] [address] Phone Care Team Providers Care Forensic Materials Engineer Name Role Phone Benji Rhonda Seymour APRN, GREGG Unavailable Leticia David MD Unavailable Boom Ram Primary Care Provider [phone] Reason for Visit * Reason Comments Medication Refill Encounter Details Date Type Department Care Team (Late st Contact Info) Description 06/29/2022 Refill [facility] - Primary Care - [place] [address] [place] [address] Boom Ram PAC [address] [place] [address] Medication Refill Social History Tobacco [...] suspected to have Coronavirus/COVID-19? No / Unsure 06/09/2022 4:22 PM CDT documented as of this encounter Miscellaneous Notes * Telephone Encounter - Yvette Landis RN - 06/30/2022 8:29 AM CDT Refill requested too soon. documented in this encounter Plan of Treatment Not on file documented as of this encounter Visit Diagnoses Not on filedocumented in this encounter Additional Health Concerns Assessment Noted Time PHQ-9 Depression Total Score: 0 01/21/20 2:00 PM MAINTENANCE MECHANIC documented as of this encounter Care Teams Forensic Materials Engineer Relationship Specialty Start Date End Date Boom Ram PAC [address] [place] [address] PCP - General Physician Venetian Blind Maker 01/20/22 Rhonda Leblanc, FISHER TRAMMEL NET, TIPPLE REPAIRER Nurse Practitioner Advanced Practice Nurse 11/20/15 Leticia David MD [address] [phone] Consulting Physician Endocrinology 09/28/21 documented as of this encounter
--- OUTSIDE RECORDS SUMMARY | 2024-04-09 20:33 | XMS_ITS | Patient Health Summary ---
Author Organization [facility] Address [address] [address] Care Team Providers Care Patch Setter Name Role Phone Martha Gray MD Primary Care Provider [phone] Note from [facility],non-owned Affiliates and Associated Physician Practices is amultiple site organization consisting of ambulatory clinics and hospital sitesin [place], [place], [place] and [place]. This disclosure is being madepursuant to the Care Everywhere program and may not contain all information available regarding this patient. Last updated 17.[facility] [employer] Allergies No known active allergies Medications * Be aware that medications may not be up to date on this document. Alwaysverify current medications with the patient. * ferrous sulfate EC (FERROUS SULFATE) 324 (65 FE) MG tablet(Started 10/27/2016) Take 325 mg by mouth. * levothyroxine (SYNTHROID) 25 MCG tablet(Started 09/30/2016) Take by mouth. * metoprolol tartrate (LOPRESSOR) 50 MG tablet(Started 05/20/2016) Take 50 mg by mouth BID. * traMADol (ULTRAM) 50 MG tablet(Started 05/10/2016) Take 50 mg by mouth q8h PRN. * simvastatin (ZOCOR) 20 MG tablet(Started 04/27/2016) Take 20 mg by mouth DAILY. 1 refill left * hyoscyamine 0.125 MG tablet(Started 05/11/2016) 2 refills left * omeprazole (PRILOSEC) 40 MG capsule(Started 05/09/2016) 9 refills left * cetirizine (ZYRTEC) 10 MG tablet(Started 05/20/2016) Take 10 mg by mouth QDAY PRN (Allergies). * gabapentin (NEURONTIN) 300 MG capsule(Started 01/30/2018) * topiramate (TOPAMAX) 100 MG tablet(Started 04/16/2018) * busPIRone (BUSPAR) 30 MG tablet(Started 04/04/2018) Active Problems Problem Noted Date Diagnosed Date [...] Mass Index 41.04 06/21/2018 9:57 AM CDT Procedures * IR SACROILIAC JOINT RT INJECT(Performed 06/12/2018) Performed for Pain of right hip joint * FL DRAIN/INJECT LARGE JOINT/BURSA(Performed 05/10/2018) Performed for Trochanteric bursitis of right hip * XR PELVIS W RIGHT HIP 2VW(Performed 05/10/2018) Performed for Pain of right hip joint * XR SHOULDER LEFT 2VW OR MORE(Performed 11/18/2016) * PATHOLOGY TISSUE(Performed 06/21/2016) * CBC W AUTO DIFFERENTIAL(Performed 06/21/2016) * CBC W AUTO DIFFERENTIAL(Performed 06/21/2016) * TYPE + SCREEN PANEL(Performed 06/21/2016) * BASIC METABOLIC PANEL (CALCIUM TOTAL)(Performed 06/14/2016) * CBC W AUTO DIFFERENTIAL(Performed 06/14/2016) * CBC W AUTO DIFFERENTIAL(Performed 06/14/2016) * PATHOLOGY/GENETICS HISTORICAL-ONBASE(Performed 05/13/2016) Results * IR SACROILIAC JOINT RT INJECT (06/12/2018 3:09 PM CDT) Anatomical Region Laterality Modality X-Ray Angiograph y 06/12/2018 4:00 PM CDT Impressions 06/12/2018 4:03 PM CDT Impression: Right sacroiliac joint steroid injection under fluoroscopic guidance. Dr. Mcqueen performed/was present throughout the procedure. This report was approved ??by Wesley Berry ?? on 06/12/2018 4:02 PM . I, Dr. DIANE MCQUEEN M.D. have personally reviewed and interpreted this examination/study. This report was electronically signed by DIANE MCQUEEN M.D. ??on 06/12/2018 4:03 PM . Narrative 06/12/2018 4:03 PM CDT History: 58-year-old female with low back pain radiating to right hip, presenting for right sacroiliac joint therapeutic injection. Operators: 1.Dr. Mcqueen, Attending Physician 2.Dr. Berry, Resident Physician Anesthesia: Local - 5 mL of 1% lidocaine Procedure: 1.Fluoroscopy-guided right sacroiliac joint steroid injection Fluoroscopic time: 1.6 minutes ?Contrast: None Procedure details: The risks, benefits, and alternatives of the procedure were explained to the patient in detail, and informed consent was obtained. The patient was placed prone on the procedure table. Jewel Bearing Turner radiograph of the pelvis was unremarkable. A percutaneous entry site was marked on the skin to access the inferior aspect of the right sacroiliac joint. The overlying skin was prepped and draped in the usual sterile fashion. Local anesthesia was provided with 1% lidocaine. A 22-gauge 5 cm spinal needle was inserted into the inferior aspect of the sacroiliac joint under fluoroscopic guidance. Once intracapsular position was obtained, a mixture of 3 mL betamethasone (6 mg/mL) and 3 mL 0.5% bupivacaine was injected. The patient tolerated the procedure well and was transferred to the holding area in stable condition. There were no immediate complications associated with the procedure. The patient's pain level before the procedure was 10/10. The patient's pain level after the procedure was 2/10. Procedure Note Diane Mcqueen MD - 06/12/2018 History: 58-year-old female with low back pain radiating to right hip, presenting for right sacroiliac joint therapeutic injection. Operators: 1.Dr. Mcqueen, Attending Physician 2.Dr. Berry, Resident Physician Anesthesia: Local - 5 mL of 1% lidocaine Procedure: 1.Fluoroscopy-guided right sacroiliac joint steroid injection Fluoroscopic time: 1.6 minutes Contrast: None Procedure details: The risks, benefits, and alternatives of the procedure were explained to the patient in detail, and informed consent was obtained. The patientwas placed prone on the procedure table. Jewel Bearing Turner radiograph of the pelvis was unremarkable. A percutaneous entry site was marked on the skin to access the inferior aspect of the right sacroiliac joint. The overlying skin was prepped and draped in the usual sterile fashion. Local anesthesia was provided with 1% lidocaine. A 22-gauge 5 cm spinal needle was inserted into the inferior aspect of the sacroiliac jointunder fluoroscopic guidance. Once intracapsular position was obtained, amixture of 3 mL betamethasone (6 mg/mL) and 3 mL 0.5% bupivacaine was injected. The patient tolerated the procedure well and was transferred to the holding area in stable condition. There were no immediate complications associated with the procedure. The patient's pain level before the procedure was 10/10. The patient's pain level after the procedure was 2/10. Impression: Right sacroiliac joint steroid injection under fluoroscopic guidance. Dr. Mcqueen performed/was present throughout the procedure. This report was approved by Wesley Berry on 06/12/2018 4:02 PM . IDr. DIANE M.D. have personally reviewed and interpreted this examination/study. This report was electronically signed by DIANE MCQUEEN M.D. on 06/12/2018 4:03 PM . Thalia Arita PA-C IR ORDERABLES * FL DRAIN/INJECT LARGE JOINT/BURSA (05/10/2018 1:37 PM MILD DISABILITIES TEACHER) Narrative Thalia Arita PA-C - 05/10/2018 1:37 PM MILD DISABILITIES TEACHER Thalia Arita PA-C ? 05/10/2018 ??1:37 PM Orthopaedic Surgery Procedure Note Diagnosis: Right hip trochanteric bursitis/pain Procedure: Injection of corticosteroid into the right hip trochanteric bursa Indications: Nirali Oropeza is a 58 y.o. female ??who has right hip trochanteric bursitis/pain. Procedure Details: The patient was informed of her condition, and the potential benefits of injection of steroid. The patient was counseled as to the risks of the procedure and allergies were reviewed. The patient was understanding and agreeable. The patient was placed into the appropriate position. The area was prepped with betadine and alcohol. The skin, subcutaneous, and peribursal tissues were injected with 6cc 1% lidocaine without epinephrine using a 22 Ga spinal needle with 2 cc of Kenalog. The needle was removed and the needle site cleaned with alcohol and dressed with a sterile bandage. The procedure was performed under sterile conditions. ??The patient tolerated the procedure well. Remainder of plan per note. Thalia Arita PA-C 05/10/2018 1:36 PM Thalia Arita PA-C PROCEDURE/MINOR SURGICAL ORDERABLES * XR PELVIS W RIGHT HIP 2VW (05/10/2018 12:39 PM MILD DISABILITIES TEACHER) Anatomical Region Laterality Modality Radiographic Louise ging 05/10/2018 12:5 7 PM MILD DISABILITIES TEACHER Impressions 05/10/2018 12:59 PM MILD DISABILITIES TEACHER IMPRESSION: No acute osseous abnormality or arthritis of the right hip. This report was electronically signed by JARETH LLANOS MD ??on 05/10/2018 12:59 PM . Narrative 05/10/2018 12:59 PM MILD DISABILITIES TEACHER Exam: ??XR PELVIS W RIGHT HIP 2VW History: ??hip pain Comparison: None. Findings: No acute fracture or dislocation of the right hip is seen. The joint space is normal. No erosions are present. Chronic appearing periosteal reaction is seen along the posterior aspect of the femur. The pelvic radiograph demonstrates no displaced fracture. There is mild degenerative change at the sacroiliac joints. Iliac crest enthesophytes are noted. Left hip joint space is maintained. Procedure Note Jareth Llanos MD - 05/10/2018 Exam: XR PELVIS W RIGHT HIP 2VW History: hip pain Comparison: None. Findings: No acute fracture or dislocation of the right hip is seen. The jointspace is normal. No erosions are present. Chronic appearing periostealreaction is seen along the posterior aspect of the femur. The pelvic radiograph demonstrates no displaced fracture. There is mild degenerative change at the sacroiliac joints. Iliac crest enthesophytes are noted. Left hip joint space is maintained. IMPRESSION: No acute osseous abnormality or arthritis of the right hip. This report was electronically signed by JARETH LLANOS MD on05/10/2018 12:59 PM . Thalia Arita PA-C DIAGNOSTIC IMAG ING ORDERABLES * XR SHOULDER LEFT 2VW OR MORE (11/18/2016 9:47 AM CDT) Anatomical Region Laterality Modality Upper Extremity Other Impressions 11/18/2016 3:42 PM CDT IMPRESSION: No acute fracture or dislocation identified. Minimal degenerative changes of the acromioclavicular joint. Dictated by Mihai Campbell MD (residential real estate appraiser). This report was approved ??by Mihai Campbell M.D. ?? on 11/18/2016 10:32 AM . I, Dr. ALLI PATEL MD have personally reviewed and interpreted this examination/study. This report was electronically signed by ALLI PATEL MD ??on 11/18/2016 3:42 PM . Narrative 11/18/2016 3:42 PM CDT EXAMINATION: XR SHOULDER LEFT 2 VW MIN HISTORY: left shoulder pain COMPARISON: No prior study is available for comparison. FINDINGS: The osseous structures are intact without acute fracture. The glenohumeral and acromioclavicular joints are in anatomic alignment. An osteophyte is present along the lateral aspect of the humeral head. Minimal degenerative changes of the acromioclavicular joint are seen. Bone density and texture are normal. Procedure Note Alli Patel MD - 06/09/2017 EXAMINATION: XR SHOULDER LEFT 2 VW MIN HISTORY: left shoulder pain COMPARISON: No prior study is available for comparison. FINDINGS: The osseous structures are intact without acute fracture. The glenohumeraland acromioclavicular joints are in anatomic alignment. An osteophyte ispresent along the lateral aspect of the humeral head. Minimal degenerativechanges of the acromioclavicular joint are seen. Bone density and texture are normal. IMPRESSION IMPRESSION: No acute fracture or dislocation identified. Minimal degenerative changes of the acromioclavicular joint. Dictated by Mihai Campbell MD (residential real estate appraiser). This report was approved by Mihai Campbell M.D. on 11/18/2016 10:32 AM. I, Dr. ALLI PATEL MD have personally reviewed and interpreted thisexamination/study. This report was electronically signed by ALLI PATEL MD on 11/18/2016 3:42PM . Kim Mayers PA-C DIAGNOSTIC IMAGING O RDERABLES * PATHOLOGY TISSUE (06/21/2016 1:54 PM CDT) Surgical Pathology Tissue ACCESSION No: [id number] CLINICAL HISTORY: ??Thyroid nodule, goiter. FINAL DIAGNOSIS: THYROID, RIGHT LOBE, LOBECTOMY: - ??NODULAR HYPERPLASIA, WITH DOMINANT NODULE, 156 GRAMS GROSS DESCRIPTION: The specimen is received fixed in formalin in one container labeled with the patient's name, Nirali Oropeza and right lobe thyroid , consists of a 156.0 gram oval-shaped lobe of thyroid measuring 8.8 x 7.0 x 5.6 cm. ??The external surface is purple-brown and smooth with multiple attached brown-vences adhesions. ??The lobe is unoriented and the external surface is inked entirely in blue. ??The specimen is serially sectioned perpendicular to the long axis revealing an oval-shaped, partially-encapsulated , soft, vences-pink mass extending throughout the lobe and abutting multiple inked surfaces, measuring 7.8 x 7.0 x 4.8 cm. ??There is a pocket of hemorrhage within the mass as well as an area of vences-white myxoid material. ??Litigator sections including relationship to capsule are submitted in cassettes A1 through A4. ??Additional payroll representative sections of the mass including relationship to the external surface are submitted in cassettes A5 through A10, with hemorrhagic area in A8 and myxoid area in A9 and A10. MNR/edk MICROSCOPIC DESCRIPTION: ?The thyroid nodule is quite cellular and has a variety of histologic patterns including a microfollicular pattern, ordinary follicular pattern, and trabecular pattern with fibrosis. The nuclei are somewhat larger than usual but do not have the grooves or pseudoinclusions of a papillary carcinoma. The capsule is thin and is incomplete, which would be unusual for a follicular neoplasm. The trabecular pattern raised the possibility of a mixed follicular ? medullary thyroid carcinoma, so immunostains were performed to identify cell lineage. The cells are uniformly positive for thyroglobulin (3+, 100%) and TTF-1 (2+, 100%), have 5% MIB-1 staining, and are negative for synaptophysin, chromogranin, and CK19. Medullary thyroid carcinoma is ruled out. This mass is a somewhat unusual appearing dominant nodule of nodular hyperplasia. The case has had intradepartmental review. TRAVEL AGENCY MANAGER/rn medical inpatient services IMMUNOHISTOCHEMISTRY REPORT: [id number] n embedded sections are incubated with the following panel of monoclonal and/or polyclonal antibodies at [facility]. Localization is via an aviden biotin or streptavidin biotin immunoperoxidase method, with or without the use of heat induced epitope retrieval techniques. Results on the population(s) of interest are as indicated in the table(s) below. Material: Block A8 Cell Population: Lesion Test ?Result ?Comment TTF-1 Stain Procedure ?? 2+ Positive 100% THYROGLOBULIN Stain Procedure ? 3+ Positive 100% SYNAPTOPHYSIN ? Negative Chromogranin Stain Procedure ?Negative Cytokeratin 19 Stain Procedure ?Negative MIB1 Stain Procedure ?3+ Positive 5% IHC Interpretation: Controls stained appropriately. Interpreted by: ??Fallon Hall MD Note: The performance characteristics of all immunoperoxidase stains cited above were determined by [facility]. They have not been cleared or approved by the U.S. Food and Drug Administration. The FDA has determined that such clearance or approval is not necessary. These tests are used for clinical purposes and should not be regarded as investigational or for research. Such diagnostic tests may only be performed in a facility that is certified by the Centers for Medicare and Medicaid Services (formerly [facility]) as a high complexity laboratory under CLIA '88. The performance characteristics of all immunohistochemical and indirect immunofluorescence stains (if any) cited in this report were determined by the Histopathology Laboratory of [facility].?? Some of these tests were developed by our own laboratory and have not been cleared or approved by the US Food and Drug Administration.?The FDA does not require this test to go through premarket FDA review.?These tests are used for clinical purposes. They should not be regarded as investigational or for research.?? This laboratory is certified under the Clinical Laboratory Improvement Amendments (CLIA) as qualified to perform high complexity clinical laboratory testing. This case has been personally reviewed and interpreted by the attending (teaching) pathologist. Final Diagnosis performed by Fallon Hall MD. Electronically signed 07/07/2016 [facility] ([facility]) Resection without Tumor (Thyroid, Right Lobe) 06/21/2016 1:54 PM CDT 06/21/2016 3:27 PM CDT Narrative [facility] ([facility]) - 07/07/2016 5:34 PM CDT Pre-op diagnosis: Thyroid nodule [E04.1] Heber Germain MD LAB - PATHOLOGY/CYTO LOGY ORDERABLES [facility]) * (ABNORMAL) CBC W AUTO DIFFERENTIAL (06/21/2016 1:23 PM CDT) Only the most recent of4 resultswithin the time period is included. WBC 9.7 3.5 - 10.5 10? 3 /uL [facility] RBC 3.91 3.90 - 5.00 10? 6 /uL [facility] Hemoglobin 10.1(L) 12.0 - 15.5 g/dL [facility] Hematocrit 31.8(L) 35.0 - 45.0 % [facility] MCV 81.3 81.0 - 97.0 fL [facility] MCH 25.8(L) 28.0 - 34.0 pg [facility] MCHC 31.8(L) 32.0 - 36.0 g/dL [facility] Platelet Count 401(H) 150 - 400 10? 3 /uL [facility] RDW-SD 43.3 36.0 - 50.0 fL [facility] RDW-CV 14.6 11.2 - 14.8 % [facility] MPV 8.3(L) 9.3 - 12.8 fL [facility] Neutrophils % 54.7 35.0 - 70.0 % [facility] Lymphocytes % 36.4 19.7 - 55.1 % [facility] Monocytes % 7.3 3.0 - 15.0 % [facility] Eosinophils % 1.5 0.0 - 6.0 % [facility] Basophil % 0.1 0.0 - 1.5 % [facility] Neutrophils Absolute 5.3 1.6 - 7.0 10? 3 /uL [facility] Lymphocyte Absolute 3.5(H) 0.8 - 2.9 10? 3 /uL [facility] Monocytes Absolute 0.70(H) 0.14 - 0.66 10? 3 /uL [facility] Eosinophils Absolute 0.14 0.00 - 0.22 10? 3 /uL [facility] Basophils Absolute 0.01 0.00 - 0.06 10? 3 /uL [facility] Immature Granulocytes % 0.2 0.0 - 1.0 % [facility] Blood specimen (specimen) BLOOD SPECIMEN / Unknown 06/21/2016 1:23 PM CDT 06/21/2016 1:32 PM CDT Nargis Corona MD LAB - HEMATOLOGY ORDERABLES [address] [phone] * TYPE + SCREEN PANEL (06/21/2016 8:35 AM CDT) Typem B POS [facility] Antibody Screen NEG [facility] Blood specimen (specimen) 06/21/2016 8:35 AM CDT 06/21/2016 8:52 AM CDT Heber Germain MD LAB - BLOOD BANK ORD ERABLES Performing Organization Address City/[facility]/ZIP Co de Phone Number [facility] [address] * BASIC METABOLIC PANEL (CALCIUM TOTAL) (06/14/2016 10:00 AM CDT) BUN 10 7 - 26 mg/dL [facility] Creatinine 0.7 0.6 - 1.2 mg/dL [facility] Sodium 139 136 - 145 mmol/L [facility] Potassium 4.4 3.5 - 4.5 mmol/L [facility] Chloride 104 98 - 107 mmol/L [facility] CO2 25 22 - 29 mmol/L [facility] Glucose 113 70 - 115 mg/dL [facility] Calcium 9.5 8.4 - 10.2 mg/dL [facility] Anion Gap 14 8 - 18 [facility] BUN/Creatinine Ratio 14 7 - 23 [facility] Osmolality Calculated 288 270 - 300 mOsm/kg [facility] eGFR >60 >60 mL/min/1.7 3 m2 [facility] Blood specimen (specimen) BLOOD SPECIMEN / Unknown 06/14/2016 10:00 AM CDT 06/14/2016 10:57 AM CDT Leonor Koch ANTI TANK MISSILEMAN-TEMPERING OVEN OPERATOR LAB - MAYDA KITTY ORDERABLES Performing Organization Address [facility] Co de Phone Number [address] [phone] * PATHOLOGY/GENETICS HISTORICAL-ONBASE (05/13/2016) 05/13/2016 Historical Provider LAB - CHEMISTRY O RDERABLES [facility] [address] Care Teams Patch Setter Relationship Specialty Start Date End Date Martha Gray MD PCP - General 05/04/18
--- OUTSIDE RECORDS SUMMARY | 2024-04-09 20:33 | XMS_ITS | Encounter Summary ---
Author Organization [facility] Address [address] [facility] [place] [address] Phone Care Team Providers Care Skin Diving Teacher Name Role Phone Rhonda Leblanc APRN, GREGG Unavailable Leticia David MD Unavailable Boom Ram Primary Care Provider [phone] Reason for Visit * Reason Comments Medication Refill Encounter Details Date Type Department Care Team (Late Contact Info) Description 07/14/2023 Refill [facility] - Primary Care - [place] [address] [place] [address] Boom Ram PAC [address] [place] [address] Medication Refill Social History Tobacco [...] Telephone Encounter - Boom Ram PAC - 07/14/2023 9:53 AM CDT Refill approved. * Telephone Encounter - Marbin Maxwell RN - 07/14/2023 8:50 AM CDT Medication failed the protocol, provider to review and approve the medication order if appropriate. Requested Prescriptions Pending Prescriptions Disp Refills simvastatin (ZOCOR) 40 MG Tablet [Pharmacy Med Name: SIMVASTATIN 40 MG TABLET] 90 Tablet 0 Sig: TAKE 1 TABLET BY MOUTH EVERY DAY IN THE EVENING Hmg CoA Reductase Inhibitors Protocol Failed - 07/14/2023 12:05 AM Failed - CMP in past 12 months SODIUM Date Value Ref Range Status 06/06/2022 140 136 - 144 mmol/L Final POTASSIUM Date Value Ref Range Status 06/06/2022 4.1 3.5 - 5.1 mmol/L Final CHLORIDE Date Value Ref Range Status 06/06/2022 105 100 - 110 mmol/L Final CO2, VENOUS Date Value Ref Range Status 06/06/2022 26 22 - 32 mmol/L Final ANION GAP Date Value Ref Range Status 06/06/2022 13.1 8.0 - 20.0 mmol/L Final GLUCOSE Date Value Ref Range Status 06/06/2022 100 (H) 70 - 99 mg/dL Final BUN Date Value Ref Range Status 06/06/2022 9 8 - 23 mg/dL Final CREATININE, BLOOD Date Value Ref Range Status 06/06/2022 0.67 0.60 - 1.10 mg/dL Final BUN/CREATININE RATIO Date Value Ref Range Status 06/06/2022 13 12 - 20 ratio Final TOTAL PROTEIN Date Value Ref Range Status 06/06/2022 7.2 6.0 - 8.3 g/dL Final ALBUMIN Date Value Ref Range Status 06/06/2022 4.0 3.5 - 5.2 g/dL Final Comment: The colormetric methods used for the determination of Albumin may lead to falsely elevated test results in patients suffering from renal failure or insufficiency due to interference with other proteins. A/G RATIO Date Value Ref Range Status 06/06/2022 1.3 1.0 - 2.0 Final CALCIUM Date Value Ref Range Status 06/06/2022 9.5 8.9 - 10.3 mg/dL Final T BILI Date Value Ref Range Status 06/06/2022 0.6 <=1.2 mg/dL Final SGOT (AST) Date Value Ref Range Status 06/06/2022 14 <=32 U/L Final SGPT (ALT) Date Value Ref Range Status 06/06/2022 9 <=41 U/L Final ALKALINE PHOSPHATASE Date Value Ref Range Status 06/06/2022 78 35 - 105 U/L Final GFR, EST. NONAFRICAN Date Value Ref Range Status 06/06/2022 >60 >=60 Final GFR, EST. Date Value Ref Range Status 06/06/2022 >60 >=60 Final GFR, ESTIMATED Date Value Ref Range Status 06/06/2022 >60 >=60 Final Comment: Creatinine Clearance is the preferred criteria for selecting drug dose adjustments in renally impaired patients. The GFR is provided as additional pertinent clinical information. GFR is reported in mL/min/1.73 sq m. Calculation based on the Chronic Kidney Disease Epidemiology Collaboration (CKD- EPI) equation refitwithout adjustment for race. IS THE PATIENT REQUIRED TO BE FASTING? Date Value Ref Range Status 06/06/2022 No Final Passed - Visit with relevant provider in past 12 months or upcoming 90 days Recent Visits Date Type Provider Dept 10/03/22 Office Visit Abel Pope MD [facility] 07/20/22 Office Visit Boom Ram PAC [facility] Showing recent visits within past 365 days [...] Range Status 07/20/2022 99.6 <130 mg/dL Final documented in this encounter Plan of Treatment Not on file documented as of this encounter Visit Diagnoses Not on filedocumented in this encounter Additional Health Concerns Assessment Noted Time PHQ-9 Depression Total Score: 0 01/21/20 2:00 PM SHARPLES MACHINE OPERATOR documented as of this encounter Care Teams Skin Diving Teacher Relationship Specialty Start Date End Date Boom Ram PAC [address] [place] [address] PCP - General Physician Office Workforce Planner 01/20/22 Rhonda Leblanc, MARGARTIA, COMPOSITION WORKER Nurse Practitioner Advanced Practice Nurse 11/20/15 Leticia David MD [address] [address] Consulting Physician Endocrinology 09/28/21 documented as of this encounter
--- OUTSIDE RECORDS SUMMARY | 2024-04-09 20:33 | XMS_ITS | Encounter Summary ---
Author Organization [facility] Address [address] [facility] [place] [address] Phone Care Team Providers Care Supervisor Curing Room Name Role Phone Rhonda Leblanc MARGARITA, MARKETING ASSISTANT Unavailable Dilan Moon MD Primary Care Provider [phone] Leticia David MD Unavailable Boom Ram Primary Care Provider [phone] Reason for Visit * Reason Comments Medication Refill Encounter Details Date Type Department Care Team (Late st Contact Info) Description 02/20/2020 Refill [facility] Oncology Services [address] [place] [address] Lorenzo Naylor MD [address] [place] [address] Medication Refill Social History Tobacco Use Types Packs/Day Years Used Date Smoking Tobacco: Former Cigarettes Q uit: 09/11/1978 Smokeless Tobacco: Never Alcohol Use Standard Drinks/Week Comments No 0 (1 standard drink = 0.6 oz pur e alcohol) use to drink heavy-quit 1989 Sexually Active Control Partners Comments Never Comments No Sex and Gender Information Value Date Recorded Sex Assigned at Not on file Legal Sex Female 11:42 PM CDT Gender Identity Not on file Sexual Orientation Not on file COVID-19 Exposure Response Date Recorded In the last month, have you been in contact with someone who was confirmed or suspected to have Coronavirus / COVID-19? No / Unsure 02/10/2020 11:38 AM GROUP CIO documented as of this encounter Miscellaneous Notes * Telephone Encounter - Dixie Cronin RN - 02/24/2020 10:24 AM GROUP CIO Refilled Ferrous Sulfate P CIO documented in this encounter Plan of Treatment Not on file documented as of this encounter Visit Diagnoses Diagnosis Iron deficiency anemia, unspecified iron deficiency anemia type documented in this encounter Additional Health Concerns Assessment Noted Time PHQ-9 Depression Total Score: 0 09/17/19 17 1:00 PM CDT documented as of this encounter Care Teams Supervisor Curing Room Relationship Specialty Start Date End Date Dilan Moon MD PCP - General Sports Medicine 08/08/19 01/19/22 Boom Ram, PAC [address] [place] [address] PCP - General Physician Mutual Fund Sales Agent 01/20/22 Rhonda Leblanc, WAD COMPRESSOR OPERATOR ADJUSTER, MARKETING ASSISTANT Nurse Practitioner Advanced Practice Nurse 11/20/15 Leticia David MD [address] [phone] Consulting Physician Endocrinology 09/28/21 documented as of this encounter
--- OUTSIDE RECORDS SUMMARY | 2024-04-09 20:33 | XMS_ITS | Clinical Summary ---
Author Organization [facility] 1 [employer] Address [address] [place] [address] Phone Care Team Providers Care Dialysis Nurse Name Role Phone Robin Ahmadille PARISH NURSE Primary Care Provider Allergies Active Allergy Reactions Criticality Noted Date Comments Ibuprofen Headache Reaction: Headache, Medications methylPREDNISol one (MEDROL, PIERRE,) 4 mg Dosepack Take 1 tablet (4 mg total) by mouth as directed. Take as directed on package 21 tablet 06/09/2017 Active Active Problems Problem Noted Date Diagnosed Date Hyperlipidemia 05/15/2013 Endometrial hyperplasia with atypia 02/29/2012 Immunizations Name Administration Dates Next Due Influenza, Trivalent, Preser vative Free, Intramuscular 02/26/2013,12/01/2011,11/22/2010,12/24,12/29/2008,01/29/2008,01/11/2007 PPD TEST 12/04/2000 Social History Tobacco Use Types Packs/Day Years Used Date Smoking Tobacco: Unknown Smokeless Tobacco: Never Personal Safety Answer Date Recorded Getting School Help Needed Not on file 05/25 Comments Unknown Sex and Gender Information Value Date Recorded Sex Assigned at Not on file Legal Sex Female 2:16 AM ABSTRACT CLERK Gender Identity Not on file Sexual Orientation Not on file Obstetrics History Last Filed Vital Signs Vital Sign Reading Time Taken Comments Blood Pressure 142/54 06/09/2017 1:26 PM CDT Pulse 76 06/09/2017 1:26 PM CDT Temperature - - Respiratory Rate - - Oxygen Saturation 99% 03/29/2012 8:08 AM ABSTRACT CLERK Inhaled Oxygen Concentration - - Weight 110.7 kg (244 lb) 07/14/2017 1:22 PM CDT Height 172.7 cm (5' 8 ) 05/21/2012 11:14 AM CDT Body Mass Index 37.1 05/21/2012 11:14 AM CDT Plan of Treatment Not on file Insurance [facility] Care Teams Dialysis Nurse Relationship Specialty Start Date End Date Robin Ahmadi NP [address] [place], [place] [address]Renata [facility] [place] [address] PCP - General Nurse Practitioner 06/09/17
--- OUTSIDE RECORDS SUMMARY | 2024-04-09 20:33 | XMS_ITS | Referral Summary ---
Author Organization [facility] 1 [employer] Address [address] [place] [address] Phone Care Team Providers Care Kitchen Steward Name Role Phone Robin Ahmadille SMOG TECHNICIAN Primary Care Provider Allergies Active Allergy Reactions [...] on file Legal Sex Female 2:16 AM SEARCH MARKETING COORDINATOR Gender Identity Not on file Sexual Orientation Not on file Last Filed Vital Signs Vital Sign Reading Time Taken Comments Blood Pressure 142/54 06/09/2017 1:26 PM CDT Pulse 76 06/09/2017 1:26 PM CDT Temperature - - Respiratory Rate - - Oxygen Saturation 99% 03/29/2012 8:08 AM SEARCH MARKETING COORDINATOR Inhaled Oxygen Concentration - - Weight 110.7 kg (244 lb) 07/14/2017 1:22 PM CDT Height 172.7 cm (5' 8 ) 05/21/2012 11:14 AM CDT Body Mass Index 37.1 05/21/2012 11:14 AM CDT Plan of Treatment Not on file Insurance [facility] Care Teams Kitchen Steward Relationship Specialty Start Date End Date Robin Ahmadi NP [address] [place], [place] [address]Renata [facility] [place] [address] PCP - General Nurse Practitioner 06/09/17
--- OUTSIDE RECORDS SUMMARY | 2024-04-09 20:33 | XMS_ITS | Encounter Summary ---
Author Organization [facility] Address [address] [facility] [place] [address] Phone Care Team Providers Care Carbide Die Maker Name Role Phone Rhonda Leblanc MARGARITA, EDUCATIONAL/DEVELOPMENT ASSISTANT Unavailable Dilan Moon MD Primary Care Provider [phone] Leticia David MD Unavailable Boom Ram Primary Care Provider Reason for Visit * Reason Comments Medication Refill Encounter Details Date Type Department Care Team (Late st Contact Info) Description 08/05/2020 Refill [facility] Oncology Services [address] [place] [address] Lorenzo Naylor MD [address] [place] [address] Medication Refill Social History Tobacco [...] Telephone Encounter - Dixie Cronin RN - 08/05/2020 11:36 AM CDT Refilled Ferrous Sulfate next f/u on 08/11/ documented in this encounter Plan of Treatment Not on file documented as of this encounter Visit Diagnoses Diagnosis Iron deficiency anemia, unspecified iron deficiency anemia type documented in this encounter Additional Health Concerns Assessment Noted Time PHQ-9 Depression Total Score: 0 09/17/19 17 1:00 PM CDT documented as of this encounter Care Teams Carbide Die Maker Relationship Specialty Start Date End Date Dilan Moon MD PCP - General Sports Medicine 08/08/19 01/19/22 Boom Ram, PAC [address] [place] [address] PCP - General Physician Tufter Hand 01/20/22 Rhonda Leblanc, INVESTIGATOR NARCOTICS, EDUCATIONAL/DEVELOPMENT ASSISTANT Nurse Practitioner Advanced Practice Nurse 11/20/15 Leticia David MD [address] [phone] Consulting Physician Endocrinology 09/28/21 documented as of this encounter
--- OUTSIDE RECORDS SUMMARY | 2024-04-09 20:33 | XMS_ITS | Encounter Summary ---
Author Organization [facility] Address [address] [facility] [place] [address] Phone Care Team Providers Care Can Cleaner Name Role Phone Rhonda Leblanc APRN, GREGG Unavailable Leticia David MD Unavailable Boom Ram Primary Care Provider [phone] Reason for Visit * Reason Comments Medication Refill Encounter Details Date Type Department Care Team (Late Contact Info) Description 07/20/2023 Refill [facility] - Primary Care - [place] [address] [place] [address] Boom Ram PAC [address] [place] [address] Medication Refill Social History Tobacco [...] Telephone Encounter - Boom Ram PAC - 07/20/2023 9:08 AM CDT Refill approved. * Telephone Encounter - Marbin Maxwell RN - 07/20/2023 8:43 AM CDT Medication failed the protocol, provider to review and approve the medication order if appropriate. Requested Prescriptions Pending Prescriptions Disp Refills escitalopram (LEXAPRO) 20 MG Tablet [Pharmacy Med Name: ESCITALOPRAM 20 MG TABLET] 90 Tablet 0 Sig: TAKE 1 TABLET BY MOUTH EVERY DAY SSRI (6 Month Refill Only) Protocol Failed - 07/20/2023 12:10 AM Failed - Visit with relevant provider in past 6 months or upcoming 90 days Recent Visits No visits were found meeting these conditions. Showing recent visits within past 182 days and meeting all other requirements Future Appointments No visits were found meeting these conditions. Showing future appointments within next 90 days and meeting all other requirements Failed - Has an encounter in the past 6 months with a depression, anxiety, adjustment disorder, OCD, or PTSD visit diagnosis Passed - Patient has established therapy with SSRI for at least 6 months documented in this encounter Plan of Treatment Not on file documented as of this encounter Visit Diagnoses Diagnosis Depression, unspecified depression type documented in this encounter Additional Health Concerns Assessment Noted Time PHQ-9 Depression Total Score: 0 01/21/20 2:00 PM HI LIFT OPERATOR documented as of this encounter Care Teams Can Cleaner Relationship Specialty Start Date End Date Boom Ram PAC [address] [place] [address] PCP - General Physician Crayon Sawyer 01/20/22 Rhonda Leblanc, CUSTOMER ASSISTANT, SUPERVISOR ACCOUNTING CLERKS Nurse Practitioner Advanced Practice Nurse 11/20/15 Leticia David MD [address] [address] Consulting Physician Endocrinology 09/28/21 documented as of this encounter
== END 2024-04-09 20:29 | disposition home or self-care (01) ==
LOC: ANHLAB 20:31
PROVIDERS: PCP Student in an Organized Health Care Education/Training Program; Visit Provider Student in an Organized Health Care Education/Training Program
DX: R39.9 Unspecified symptoms and signs involving the genitourinary system (principal)
CPT/HCPCS: 87086

== ENCOUNTER 2024-05-17 14:41 | Outpatient (NON) | payer MEDICARE, SELFPAY ==
--- OUTSIDE RECORDS SUMMARY | 2024-05-17 14:46 | XMS_ITS | Clinical Summary ---
Author Organization [facility] 1 [employer] Address [address] [place] [address] Phone Care Team Providers Care Taping Machine Operator Name Role Phone Robin Ahmadille DEAN OF GRADUATE STUDIES Primary Care Provider Allergies Active Allergy Reactions Criticality Noted Date Comments Ibuprofen Headache Reaction: Headache, Medications methylPREDNISol one (MEDROL, PIERRE,) 4 mg Dosepack Take 1 tablet (4 mg total) by mouth as directed. Take as directed on package 21 tablet 06/09/2017 Active Active Problems Problem Noted Date Diagnosed Date Hyperlipidemia 05/15/2013 Endometrial hyperplasia with atypia 02/29/2012 Immunizations Immunization Administration Dates Next Due Influenza, Trivalent, Preser vative Free, Intramuscular 02/26/2013,12/01/2011,11/22/2010,12/24,12/29/2008,01/29/2008,01/11/2007 PPD TEST 12/04/2000 Social History Tobacco Use Types Packs/Day Years Used Date Smoking Tobacco: Unknown Smokeless Tobacco: Never Personal Safety Answer Date Recorded Getting School Help Needed Not on file 05/25 Comments Unknown Sex and Gender Information Value Date Recorded Sex Assigned at Not on file Legal Sex Female 2:16 AM TEST LAB TECHNICIAN Gender Identity Not on file Sexual Orientation Not on file Obstetrics History Last Filed Vital Signs Vital Sign Reading Time Taken Comments Blood Pressure 142/54 06/09/2017 1:26 PM CDT Pulse 76 06/09/2017 1:26 PM CDT Temperature - - Respiratory Rate - - Oxygen Saturation 99% 03/29/2012 8:08 AM TEST LAB TECHNICIAN Inhaled Oxygen Concentration - - Weight 110.7 kg (244 lb) 07/14/2017 1:22 PM CDT Height 172.7 cm (5' 8 ) 05/21/2012 11:14 AM CDT Body Mass Index 37.1 05/21/2012 11:14 AM CDT Plan of Treatment Not on file Insurance [facility] Care Teams Taping Machine Operator Relationship Specialty Start Date End Date Robin Ahmadi NP [address] [place], [place] [address]Renata [facility] [place] [address] PCP - General Nurse Practitioner 06/09/17
--- OUTSIDE RECORDS SUMMARY | 2024-05-17 14:46 | XMS_ITS | Encounter Summary ---
Author Organization [facility] Address [address] [place] [address] Phone Care Team Providers Care Talent Associate Name Role Phone Benji Rhonda Seymour APRN, GREGG Unavailable Leticia David MD Unavailable Boom Ram Primary Care Provider [phone] Reason for Visit * Reason Comments Medication Refill Encounter Details Date Type Department Care Team (Late Contact Info) Description 07/14/2023 Refill [facility] - [place] Care - [place] [address] [place] [address] Boom Ram PAC [address] [place] [address] Medication Refill Social History Tobacco [...] Dept 10/03/22 Office Visit Abel Pope MD [facility] 07/20/22 Office Visit Boom Ram PAC [facility] Showing recent visits within past 365 [...] Depression Total Score: 0 01/21/20 2:00 PM REHAB SPECIALIST documented as of this encounter Care Teams Talent Associate Relationship Specialty Start Date End Date Boom Ram PAC [address] [place] [address] PCP - General Physician Metal Smelter 01/20/22 Rhonda Leblanc, MARGARITA, INTEGRATED CAMPAIGN MANAGER Nurse Practitioner Advanced Practice Nurse 11/20/15 Leticia David MD [address] [phone] Consulting Physician Endocrinology 09/28/21 documented as of this encounter
--- OUTSIDE RECORDS SUMMARY | 2024-05-17 14:46 | XMS_ITS | Encounter Summary ---
Author Organization [facility] Address [address] [place] [address] Phone Care Team Providers Care Method Consultant Name Role Phone Benji Rhonda Seymour APRN, GREGG Unavailable Leticia David MD Unavailable Boom Ram Primary Care Provider Reason for Visit * Reason Comments Medication Refill Encounter Details Date Type Department Care Team (Late Contact Info) Description 03/23/2023 Refill [facility] - Primary Care - [place] [address] [place] [address] Boom Ram PAC [address] [place] [address] Medication Refill Social History Tobacco [...] Depression Total Score: 0 01/21/20 2:00 PM WEED SCIENCE RESEARCH TECHNICIAN documented as of this encounter Care Teams Method Consultant Relationship Specialty Start Date End Date Boom Ram, PAC [address] [place] [phone] PCP - General Physician Switchboard Troubleshooter 01/20/22 Rhonda Leblanc, DRIVER, MOTORCYCLE POLICE OFFICER Nurse Practitioner Advanced Practice Nurse 11/20/15 Leticia David MD [address] [phone] Consulting Physician Endocrinology 09/28/21 documented as of this encounter
--- OUTSIDE RECORDS SUMMARY | 2024-05-17 14:46 | XMS_ITS | Encounter Summary ---
Author Organization [facility] Address [address] [facility] [place] [address] Phone Care Team Providers Care Ice Cream Truck Driver Name Role Phone Benji Rhonda Seymour APRN, GREGG Unavailable Leticia David MD Unavailable Boom Ram Primary Care Provider Reason for Visit * Reason Comments Medication Refill Encounter Details Date Type Department Care Team (Late Contact Info) Description 08/23/2022 Refill [facility] - Primary Care - [place] [address] [place] [address] Boom Ram PAC [address] [place] [address] Medication Refill Social History Tobacco [...] Dept 07/20/22 Office Visit Boom Ram PAC [facility] 06/09/22 Office Visit Boom Ram [facility] 05/19/22 Office Visit Boom Ram [facility] 01/20/22 Office Visit Boom Ram [facility] Showing recent visits within past 365 days [...] Provider Dept 07/20/22 Office Visit Boom Ram, [facility] 06/09/22 Office Visit Boom Ram, [facility] 05/19/22 Office Visit Boom Ram, [facility] 01/20/22 Office Visit Boom Ram, [facility] Showing recent visits within past 365 days [...] Provider Dept 07/20/22 Office Visit Boom Ram [facility] 06/09/22 Office Visit Boom Ram [facility] 05/19/22 Office Visit Boom Ram [facility] 01/20/22 Office Visit [facility]om [facility] Showing recent visits within past 365 days [...] Depression Total Score: 0 01/21/20 2:00 PM BUS AND SYS INTEGRATION SENIOR MANAGER documented as of this encounter Care Teams Ice Cream Truck Driver Relationship Specialty Start Date End Date Boom Ram, PAC [address] [place] [address] PCP - General Physician Sap Plant Maintenance Consultant 01/20/22 Rhonda Leblanc, HARMONICA MAKER, ACTUARY CLERK Nurse Practitioner Advanced Practice Nurse 11/20/15 Leticia David MD [address] [phone] Consulting Physician Endocrinology 09/28/21 documented as of this encounter
--- OUTSIDE RECORDS SUMMARY | 2024-05-17 14:46 | XMS_ITS | Clinical Summary ---
Author Organization [facility] [employer] Address [address] [place] [address] Care Team Providers Care Sql Database Administrator Name Role Phone Martha Gray MD Primary Care Provider [phone] Source Comments [facility] [employer],non-owned Affiliates and Associated Physician Practices is amultiple site organization consisting of ambulatory clinics and hospital sitesin [place], [place], [place] and [place]. This disclosure is being madepursuant to the Care Everywhere program and may not contain all information available regarding this patient. Last updated 17.[facility] [employer] Allergies No known active allergies Medications * [...] 50 06/12/2018 3:36 PM CDT Temperature 36.8 C (98.2 F) 06/12/2018 12:24 PM CDT Respiratory Rate 16 06/12/2018 3:36 PM CDT [...] CA SCREENING 1960 MAMMOGRAM 1960 MEDICARE AWV 12 MONTHS 1960 PAP SMEAR 1960 HIV SCREENING 1975 HEPATITIS C SCREENING 02/27/1978 DTAP/TDAP/TD VACCINES (1 - Tdap) 1979 PNEUMOCOCCAL VACCINE 50+ (1 of 1 - PCV) 2010 ZOSTER VACCINE (1 of 2) 2010 SCREENING FOR DIABETES 06/15/2019 06/14/2016 Respiratory Syncytial Virus (RSV) Vaccine Pt: or over 60 yrs (1 - Risk 60-74 years 1-dose series) 2020 COVID-19 VACCINE (1 - season) 2023 INFLUENZA VACCINE (#1) 2023 7, 01/29/2016, 02/26/2013, Additional history exists DEPRESSION SCREENING 03/13/2024 MEDICARE AWV CALENDAR YEAR 2024 HEPATITIS B VACCINE Aged [...] CDT) BUN 10 7 - 26 mg/dL [facility] Creatinine 0.7 0.6 - 1.2 mg/dL [facility] Sodium 139 136 - 145 mmol/L [facility] Potassium 4.4 3.5 - 4.5 mmol/L [facility] Chloride 104 98 - 107 mmol/L [facility] CO2 25 22 - 29 mmol/L [facility] Glucose 113 70 - 115 mg/dL [facility] Calcium 9.5 8.4 - 10.2 mg/dL [facility] Anion Gap 14 8 - 18 [facility] BUN/Creatinine Ratio 14 7 - 23 [facility] Osmolality Calculated 288 270 - 300 mOsm/kg [facility] eGFR >60 >60 mL/min/1.7 3 m2 [facility] Blood specimen (specimen) BLOOD SPECIMEN / Unknown 06/14/2016 10:00 AM CDT 06/14/2016 10:57 AM CDT Leonor Solanogreg Koch TOPOLOGY TEACHER-CHILD PROTECTION SPECIALIST LAB - MAYDA KITTY ORDERABLES [facility] [address] [phone] from Last 3 Months or Most Recently Relevant to Health Maintenance Care Teams Sql Database Administrator Relationship Specialty Start Date End Date Martha Gray MD PCP - General 05/04/18
--- OUTSIDE RECORDS SUMMARY | 2024-05-17 14:46 | XMS_ITS | Referral Summary ---
Author Organization [facility] [employer] Address [address] [place] [address] Care Team Providers Care Centura Technical Lead Senior Developer Name Role Phone Martha Gray MD Primary Care Provider [phone] Source Comments [facility] [employer],non-owned Affiliates and Associated Physician Practices is amultiple site organization consisting of ambulatory clinics and hospital sitesin [place], [place], [place] and [place]. This disclosure is being madepursuant to the Care Everywhere program and may not contain all information available regarding this patient. Last updated 17.[facility] Allergies No known active allergies Medications * [...] CDT) BUN 10 7 - 26 mg/dL [facility] Creatinine 0.7 0.6 - 1.2 mg/dL [facility] Sodium 139 136 - 145 mmol/L [facility] Potassium 4.4 3.5 - 4.5 mmol/L [facility] Chloride 104 98 - 107 mmol/L [facility] CO2 25 22 - 29 mmol/L [facility] Glucose 113 70 - 115 mg/dL [facility] Calcium 9.5 8.4 - 10.2 mg/dL [facility] Anion Gap 14 8 - 18 [facility] BUN/Creatinine Ratio 14 7 - 23 [facility] Osmolality Calculated 288 270 - 300 mOsm/kg [facility] eGFR >60 >60 mL/min/1.7 3 m2 [facility] Blood specimen (specimen) BLOOD SPECIMEN / Unknown 06/14/2016 10:00 AM CDT 06/14/2016 10:57 AM CDT Leonor Koch SENIOR SALES DIRECTOR-DOUBLE CORNER CUTTER LAB - [place] KITTY ORDERABLES Performing Organization Address City/State/[facility] Co de Phone Number [facility] [address] [phone] from Last 3 Months or Most Recently Relevant to Health Maintenance Care Teams Centura Technical Lead Senior Developer Relationship Specialty Start Date End Date Martha Gray MD PCP - General 05/04/18
--- OUTSIDE RECORDS SUMMARY | 2024-05-17 14:46 | XMS_ITS | Clinical Summary ---
Author Organization [facility] Address [address] [facility], [address] [address] Phone Care Team Providers Care Chinese Medicine Practitioner Name Role Phone Rhonda Leblanc APRN, GREGG Unavailable Leticia David MD Unavailable Boom Ram PAC Primary Care Provider Allergies No known active allergies Medications aspirin [...] Lnp-s, Pf, 3 0 Mcg/0.3 Ml Dose (VibeSec) 06/29/2020,06/08/2020 Influenza Vaccine 02/26/2013, 2,11/22/2010,2009,12/29/2008,01/29/2008,01/11/2007 Influenza Vaccine [...] 51 10/03/2022 1:44 PM CDT Temperature 36.1 C (97 F) 10/03/2022 1:44 PM CDT Respiratory Rate 18 [...] Comments Hepatitis C Virus (HCV) Screening 1960 HPV/Cotest 1990 Cologuard 2010 Immunochemical Fecal Occult Blood 2010 Pneumococcal Immunization (50+ years) (1 of 1 - PCV) 2010 Zoster Immunization (1 of 2) 2010 Mammogram 03/11/2023 03/11/2022, 09/11, 09/04/2017, Additional history exists Influenza Immunization (#1) 11/12/202301/11, 01/10/2019, 01/24/2017, Additional history exists SARS-COV-2 Immunization ( - season) 2023 06/29/2020, 06/08/2020 Colonoscopy 10/21/2025 10/21/2020, 12/12, 12/29/2014 Colorectal Cancer Screening 10/21/2025 Td Immunization Every 10 Years (Adults With 1 Tdap) 02/22/2026 02/23/2016 Respiratory Syncytial Virus (RSV) Immunization (Adult) (1 - 1-dose 75+ series) 2035 10/21/2020, 12/12, 12/29/2014 Pap Smear Discontinued 10/04/2016 Cervical Cancer Screening (CCS) Discontinued Hepatitis B Immunization Aged Out No [...] CAD W AWILDA Routine 03/11/2022 3:35 PM BROKER Encounter for screening mammogram for malignant neoplasm of breast PATHOLOGY CYTOLOGY CCO & PRESIDENT Routine 10/04/2016 4:18 PM CDT Well woman exam with routine gynecological exam HM COLONOSCOPY Routine 12/29/2014 from Last 3 Months or Most Recently Relevant to Health Maintenance Results * PILAR SCREENING BILATERAL DIGITAL W CAD W AWILDA (03/11/2022 3:35 PM BROKER) Anatomical Region Laterality Modality breast Bilateral Mammography 03/11/2022 2:58 PM BROKER Narrative 03/15/2022 8:16 AM BROKER - PILAR SCREENING BILATERAL DIGITAL W CAD [...] to exams dated: 10/09/2019, 09/04/2017, and 10/04/2016 [facility]. BREAST TISSUE:The tissue of both breasts [...] exam. Electronically signed by: Cory Hassan M.D. ll/diana:03/11/2022 18:49:58 Lunchroom Monitor(s): RT Jeyson(R)(M), [facility] letter sent: Normal Exam Reading location: [facility] BI-RADS: 1 Negative Procedure Note Cory Hassan [...] to exams dated: 10/09/2019, 09/04/2017, and 10/04/2016 [facility]. BREAST TISSUE:The tissue of both breasts [...] exam. Electronically signed by: Cory quinonez/diana:03/11/2022 18:49:58 Lunchroom Monitor(s): RT Jeyson(R)(M), [facility] letter sent: Normal Exam Reading location: [facility] BI-RADS: 1 Negative us Boom Ram PAC IMG MAMMO ORDERABLES Final R esult * PATHOLOGY CYTOLOGY CCO & PRESIDENT (10/04/2016 4:18 PM CDT) SPECIMEN ADEQUACY Satisfactory for evaluation, squamous cells only. History of hysterectomy noted 10/07/2016 1:40 PM CDT [facility] DESCRIPTIVE DIAGNOSIS Negative for intraepithelial lesions. No dysplastic cells present. 10/07/2016 1:40 PM CDT [facility] MATED EXAMINATION Analysis of this sample has been assisted by an automated imaging and review system ([employer], [employer], [facility], [place]). This case is further evaluated and finalized by a eligibility examiner and/or pathologist. 10/07/2016 1:40 PM CDT [facility] DISCLAIMER The PAP smear is a screening test designed to detect cancerous or precancerous cells of the uterine cervix. It is one of the best means available for detection of cervical cancer but still carries an inherent false-negative rate. The consequences of a false-negative PAP result can be minimized by adhering to current screening guidelines. The following are general guidelines recommended by the ACS, ASCP, ASCCP, and ACOG: PAP testing is recommended every three years for women 21-29, Co-Testing , a PAP test in conjunction with an HPV (Human Papillomavirus) test for women ages 30-65, and no PAP or HPV testing for women under the age of 21 or older than 65 unless clinically indicated. 10/07/2016 1:40 PM CDT [facility] Case Report Gynecologic Cytology Report Case: [id number] Authorizing Provider: Harvey Roger MD Collected: 10/04/2016 04:18 PM Ordering Location: [facility] MEDICAL Received: 10/04/2016 04:18 PM GROUP - OBSTETRICS AND [facility]YNECOLOGY [facility] First Screen: Lian Bettencourt Specimen: Cervical/Endocervic al, liquid based thin layer preparation (Thin Prep ), CERVIX/ENDOCERVIX 10/07/2016 1:40 PM CDT [facility] HPV Reflex if ASCUS? No 10/07/2016 1:40 PM CDT [facility] Specimen of unknown material (specimen) CERVIX UTERI STRUCTURE / Unknown 10/04/2016 4:18 PM CDT 10/04/2016 4:18 PM CDT us Harvey Roger MD PATHOLOGY/CYTOLOGY ORDERABL ES Final Result Performing Organization Address [facility] Co de Phone Number [facility] [address] [place] [address], [place] * COLONOSCOPY (12/29/2014) us Nora Haywood MD PROCEDURE/MINOR SURGICA L ORDERABLES Final Result from Last 3 Months or Most Recently Relevant to Health Maintenance Insurance MEDICAID [place] MEDICARE C AETNA MEDICARE C [facility] on file Care Teams Chinese Medicine Practitioner Relationship Specialty Start Date End Date Boom Ram PAC [address] [place] [phone] PCP - General Physician Preparation Department Supervisor 01/20/22 Rhonda Leblanc, PAVING BLOCK CUTTER, PLANNING ASSOCIATE Nurse Practitioner Advanced Practice Nurse 11/20/15 Leticia David MD [address] [phone] Consulting Physician Endocrinology 09/28/21
--- OUTSIDE RECORDS SUMMARY | 2024-05-17 14:46 | XMS_ITS | Encounter Summary ---
Author Organization [facility] Address [address] [facility] [place] [address] Phone Care Team Providers Care Refrigerator Cabinetmaker Name Role Phone BenjiRhonda nicholson Lion AVILA, MEDIA CENTER ASSISTANT Unavailable Leticia David MD Unavailable Boom Ram [facility] Primary Care Provider Reason for Visit * Reason Comments Medication Refill Encounter Details Date Type Department Care Team (Late st Contact Info) Description 10/16/2022 Refill [facility] - Primary Care - [place] [address] [place] [address] Abel Pope MD [address] [place] [address] Medication Refill Social History Tobacco [...] Depression Total Score: 0 01/21/20 2:00 PM PROJECT MANAGEMENT SPECIALIST documented as of this encounter Care Teams Refrigerator Cabinetmaker Relationship Specialty Start Date End Date Boom Ram PAC [address] [place] [address] PCP - General Physician Lock Expert 01/20/22 Rhonda Leblanc, RADIO COMMUNICATIONS SUPERINTENDENT, MEDIA CENTER ASSISTANT Nurse Practitioner Advanced Practice Nurse 11/20/15 Leticia David MD [address] [phone] Consulting Physician Endocrinology 09/28/21 documented as of this encounter
--- OUTSIDE RECORDS SUMMARY | 2024-05-17 14:46 | XMS_ITS | Encounter Summary ---
Author Organization [facility] Address [address] [facility] [place] [address] Phone Care Team Providers Care Glass Inserter Name Role Phone Rhonda Leblanc MARGARITA, OFFICE EQUIPMENT MECHANIC Unavailable Dilan Moon MD Primary Care Provider [phone] Leticia David MD Unavailable Boom Ram Primary Care Provider Reason for Visit * Reason Comments Medication Refill Encounter Details Date Type Department Care Team (Late st Contact Info) Description 08/05/2020 Refill [facility] Oncology Services [address] [place] [address] Lorenzo Naylor MD [address] [place] [address] Medication Refill Social History Tobacco [...] documented as of this encounter Care Teams Glass Inserter Relationship Specialty Start Date End Date Dilan Moon MD PCP - General Sports Medicine 08/08/19 01/19/22 Boom Ram, PAC [address] [place] [address] PCP - General Physician Grab Operator 01/20/22 Rhonda Leblanc, [place], OFFICE EQUIPMENT MECHANIC Nurse Practitioner Advanced Practice Nurse 11/20/15 Leticia David MD [address] [phone] Consulting Physician Endocrinology 09/28/21 documented as of this encounter
--- OUTSIDE RECORDS SUMMARY | 2024-05-17 14:46 | XMS_ITS | Encounter Summary ---
Author Organization [facility] Address [address] [facility] [place] [address] Phone Care Team Providers Care Cad Administrator Name Role Phone Benji Rhonda Seymour APRN, GREGG Unavailable Leticia David MD Unavailable Boom Ram Primary Care Provider Reason for Visit * Reason Comments Medication Refill Encounter Details Date Type Department Care Team (Late Contact Info) Description 07/20/2023 Refill [facility] - Primary Care - [place] [address] [place] [address] Boom Ram PAC [address] [place] [address] Medication Refill Social History Tobacco [...] Depression Total Score: 0 01/21/20 2:00 PM CLOUD AUTOMATION TESTER documented as of this encounter Care Teams Cad Administrator Relationship Specialty Start Date End Date Boom Ram PAC [address] [place] [address] PCP - General Physician Digital Performance Analyst 01/20/22 Rhonda Leblanc, BOARDER MACHINE, CHIEF TECHNICAL OFFICER Nurse Practitioner Advanced Practice Nurse 11/20/15 Leticia David MD [address] [address] Consulting Physician Endocrinology 09/28/21 documented as of this encounter
--- OUTSIDE RECORDS SUMMARY | 2024-05-17 14:46 | XMS_ITS | Referral Summary ---
Author Organization [facility] [employer] Address [address] [place] [address] Phone Care Team Providers Care Edger Tailer Name Role Phone Robin Ahmadille LINSEED OIL ORDER FILLER Primary Care Provider Allergies Active Allergy Reactions [...] on file Legal Sex Female 2:16 AM EARLY YEARS TEACHER Gender Identity Not on file Sexual Orientation Not on file Last Filed Vital Signs Vital Sign Reading Time Taken Comments Blood Pressure 142/54 06/09/2017 1:26 PM CDT Pulse 76 06/09/2017 1:26 PM CDT Temperature - - Respiratory Rate - - Oxygen Saturation 99% 03/29/2012 8:08 AM EARLY YEARS TEACHER Inhaled Oxygen Concentration - - Weight 110.7 kg (244 lb) 07/14/2017 1:22 PM CDT Height 172.7 cm (5' 8 ) 05/21/2012 11:14 AM CDT Body Mass Index 37.1 05/21/2012 11:14 AM CDT Plan of Treatment Not on file Insurance [facility] Care Teams Edger Tailer Relationship Specialty Start Date End Date Robin Ahmadi NP [address] [place], [place] [address]Renata [place] [address] PCP - General Nurse Practitioner 06/09/17
--- OUTSIDE RECORDS SUMMARY | 2024-05-17 14:46 | XMS_ITS | Encounter Summary ---
Author Organization [facility] Address [address] [place] [address] Phone Care Team Providers Care Industrial Hygienist Name Role Phone Rhonda Leblanc MARGARITA, TRANSFORMER SHOP SUPERVISOR Unavailable Dilan Moon MD Primary Care Provider Leticia David MD Unavailable Boom Ram Primary Care Provider [phone] Reason for Visit * Reason Comments Medication Refill Encounter Details Date Type Department Care Team (Late st Contact Info) Description 02/20/2020 Refill [facility] Oncology Services [address] [place] [address] Lorenzo Naylor MD [address] [place] [address] Medication Refill Social History Tobacco [...] COVID-19? No / Unsure 02/10/2020 11:38 AM LIGHTNING ROD INSTALLER documented as of this encounter Miscellaneous Notes * Telephone Encounter - Dixie Cronin RN - 02/24/2020 10:24 AM LIGHTNING ROD INSTALLER Refilled Ferrous Sulfate TNING ROD INSTALLER documented in this encounter Plan of Treatment Not on file documented as of this encounter Visit Diagnoses Diagnosis Iron deficiency anemia, unspecified iron deficiency anemia type documented in this encounter Additional Health Concerns Assessment Noted Time PHQ-9 Depression Total Score: 0 09/17/19 17 1:00 PM CDT documented as of this encounter Care Teams Industrial Hygienist Relationship Specialty Start Date End Date Dilan Moon MD PCP - General Sports Medicine 08/08/19 01/19/22 Boom Ram, PAC [address] [place] [address] PCP - General Physician Mooner 01/20/22 Rhonda Leblanc, PLASTIC SHEETING CUTTER, TRANSFORMER SHOP SUPERVISOR Nurse Practitioner Advanced Practice Nurse 11/20/15 Leticia David MD [address] [phone] Consulting Physician Endocrinology 09/28/21 documented as of this encounter
--- OUTSIDE RECORDS SUMMARY | 2024-05-17 14:46 | XMS_ITS | Encounter Summary ---
Author Organization [facility] Address [address] [facility] [place] [address] Phone Care Team Providers Care Mixing Machine Tender Cork Gasket Name Role Phone Benji Rhonda Seymour APRN, GREGG Unavailable Leticia David MD Unavailable Boom Ram Primary Care Provider Reason for Visit * Reason Comments Medication Refill Encounter Details Date Type Department Care Team (Late st Contact Info) Description 06/29/2022 Refill [facility] - Primary Care - [place] [address] [place] [address] Boom Ram PAC [address] [place] [address] Medication Refill Social History Tobacco [...] Depression Total Score: 0 01/21/20 2:00 PM SUBMARINE ADVISORY TEAM WATCH OFFICER documented as of this encounter Care Teams Mixing Machine Tender Cork Gasket Relationship Specialty Start Date End Date Boom Ram PAC [address] [place] [address] PCP - General Physician Traffic Monitor Specialist 01/20/22 Rhonda Leblanc, MEDICAL INSURANCE CODING SPECIALIST, MINERAL INDUSTRY TEACHER Nurse Practitioner Advanced Practice Nurse 11/20/15 Leticia David MD [address] [phone] Consulting Physician Endocrinology 09/28/21 documented as of this encounter
--- OUTSIDE RECORDS SUMMARY | 2024-05-17 14:46 | XMS_ITS | Encounter Summary ---
Author Organization [facility] Address [address] [facility] [place] [address] Phone Care Team Providers Care Garment Turner Name Role Phone Benji Rhonda Seymour APRN, GREGG Unavailable Leticia David MD Unavailable Boom Ram Primary Care Provider Reason for Visit * Reason Comments Medication Refill Encounter Details Date Type Department Care Team (Late Contact Info) Description 10/26/2022 Refill [facility] - Primary Care - [place] [address] [place] [address] Boom Ram PAC [address] [place] [address] Medication Refill Social History Tobacco [...] Total Score: 0 01/21/20 22 2:00 PM FORENSIC INVESTIGATOR documented as of this encounter Care Teams Garment Turner Relationship Specialty Start Date End Date Boom Ram PAC [address] [place] [address] - [address] Physician [address] Car Mechanic 01/20/22 Rhonda Leblanc, CARDROOM WORKER, LARGE ANIMAL VETERINARIAN Nurse Practitioner Advanced Practice Nurse 11/20/15 Leticia David MD [address] [phone] Consulting Physician Endocrinology 09/28/21 documented as of this encounter
--- OUTSIDE RECORDS SUMMARY | 2024-05-17 14:46 | XMS_ITS | Patient Health Summary ---
Author Organization [facility] Address [address] [place] [address] Care Team Providers Care Cushion Assembler Name Role Phone Martha Gray MD Primary Care Provider [phone] Note from [facility],non-owned Affiliates and Associated Physician Practices is amultiple site organization consisting of ambulatory clinics and hospital sitesin [place], [place] and [place]. This disclosure is being madepursuant to the Care Everywhere program and may not contain all information available regarding this patient. Last updated 17.[facility] [employer] Allergies No known active allergies Medications * [...] for Pain of right hip joint * MD DRAIN/INJECT LARGE JOINT/BURSA(Performed 05/10/2018) Performed for Trochanteric [...] Wesley Berry on 06/12/2018 4:02 PM . I, Dr. DIANE MCQUEEN M.D. have personally reviewed and interpreted this examination/study. This report was electronically signed by DIANE MCQUEEN M.D. on 06/12/2018 4:03 PM . Narrative 06/12/2018 4:03 [...] was placed prone on the procedure table. Securities Broker radiograph of the pelvis was unremarkable. A [...] patientwas placed prone on the procedure table. Securities Broker radiograph of the pelvis was unremarkable. A [...] This report was electronically signed by DIANE MCQUENE M.D. on 06/12/2018 4:03 PM . Thalia Arita PA-C IR ORDERABLES * MD DRAIN/INJECT LARGE JOINT/BURSA (05/10/2018 1:37 PM FLIGHT MANAGER) Narrative Thalia Arita PA-C - 05/10/2018 1:37 PM FLIGHT MANAGER Thalia Artia PA-C 05/10/2018 1:37 PM Orthopaedic Surgery Procedure Note Diagnosis: Right hip trochanteric bursitis/pain Procedure: Injection of corticosteroid into the right hip trochanteric bursa Indications: Nirali Oropeza is a 58 y.o. female who has right hip trochanteric bursitis/pain. Procedure Details: [...] The procedure was performed under sterile conditions. The patient tolerated the procedure well. Remainder of plan per note. Thalia Arita PA-C 05/10/2018 1:36 PM Thalia Arita PA-C PROCEDURE/MINOR SURGICAL ORDERABLES * XR PELVIS W RIGHT HIP 2VW (05/10/2018 12:39 PM FLIGHT MANAGER) Anatomical Region Laterality Modality Radiographic Louise ging 05/10/2018 12:5 7 PM FLIGHT MANAGER Impressions 05/10/2018 12:59 PM FLIGHT MANAGER IMPRESSION: No acute osseous abnormality or arthritis of the right hip. This report was electronically signed by JARETH LLANOS MD on 05/10/2018 12:59 PM . Narrative 05/10/2018 12:59 PM FLIGHT MANAGER Exam: XR PELVIS W RIGHT HIP 2VW [...] joint. Dictated by Mihai Campbell MD (residential life director). This report was approved by Mihai Campbell M.D. on 11/18/2016 10:32 AM . I, Dr. ALLI PATEL MD have personally reviewed and interpreted this examination/study. This report was electronically signed by ALLI PATEL MD on 11/18/2016 3:42 PM . Narrative 11/18/2016 3:42 [...] joint. Dictated by Mihai Campbell MD (residential life director). This report was approved by Mihai Campbell M.D. on 11/18/2016 10:32 AM. I, Dr. ALLI PATEL MD have personally reviewed and interpreted thisexamination/study. This report was electronically signed by ALLI PATEL MD on 11/18/2016 3:42PM . Kim Mayers PA-C DIAGNOSTIC IMAGING O RDERABLES * PATHOLOGY TISSUE (06/21/2016 1:54 PM CDT) Surgical Pathology Tissue ACCESSION No: [id number] CLINICAL HISTORY: Thyroid nodule, goiter. FINAL DIAGNOSIS: THYROID, RIGHT LOBE, LOBECTOMY: - NODULAR HYPERPLASIA, WITH DOMINANT NODULE, 156 GRAMS GROSS DESCRIPTION: The specimen is received fixed in formalin in one container labeled with the patient's name, Nirali Oropeza and right lobe thyroid , consists of a 156.0 gram oval-shaped lobe of thyroid measuring 8.8 x 7.0 x 5.6 cm. The external surface is purple-brown and smooth with multiple attached brown-vences adhesions. The lobe is unoriented and the external surface is inked entirely in blue. The specimen is serially sectioned perpendicular to the long axis revealing an oval-shaped, partially-encapsulated , soft, vences-pink mass extending throughout the lobe and abutting multiple inked surfaces, measuring 7.8 x 7.0 x 4.8 cm. There is a pocket of hemorrhage within the mass as well as an area of vences-white myxoid material. Contract Management Specialist sections including relationship to capsule are submitted in cassettes A1 through A4. Additional sales representative printing sections of the mass including relationship to the external surface are submitted in cassettes A5 through A10, with hemorrhagic area in A8 and myxoid area in A9 and A10. MNR/edk MICROSCOPIC DESCRIPTION: The thyroid nodule is quite cellular and has [...] raised the possibility of a mixed follicular medullary thyroid carcinoma, so immunostains were performed to identify cell lineage. The cells are uniformly positive for thyroglobulin (3+, 100%) and TTF-1 (2+, 100%), have 5% MIB-1 staining, and are negative for synaptophysin, chromogranin, and CK19. Medullary thyroid carcinoma is ruled out. This mass is a somewhat unusual appearing dominant nodule of nodular hyperplasia. The case has had intradepartmental review. DRAW STRING KNOTTER/funeral counselor IMMUNOHISTOCHEMISTRY REPORT: Dyjawdrz-iyrmz-xqdofil n embedded sections are incubated with the following panel of monoclonal and/or polyclonal antibodies at [facility]. Localization is via an aviden biotin or streptavidin biotin immunoperoxidase method, with or without the use of heat induced epitope retrieval techniques. Results on the population(s) of interest are as indicated in the table(s) below. Material: Block A8 Cell Population: Lesion Test Result Comment TTF-1 Stain Procedure 2+ Positive 100% THYROGLOBULIN Stain Procedure 3+ Positive 100% SYNAPTOPHYSIN Negative Chromogranin Stain Procedure Negative Cytokeratin 19 Stain Procedure Negative MIB1 Stain Procedure 3+ Positive 5% IHC Interpretation: Controls stained appropriately. Interpreted by: Fallon Hall MD Note: The performance characteristics of all immunoperoxidase stains cited above were determined by [facility]. They have not been cleared [...] Centers for Medicare and Medicaid Services (formerly [facility]) as a high complexity laboratory under CLIA '88. The performance characteristics of all immunohistochemical and indirect immunofluorescence stains (if any) cited in this report were determined by the [facility]opathology Laboratory of [facility]. Some of these tests were developed by our own laboratory and have not been cleared or approved by the US Food and Drug Administration. The FDA does not require this test to go through premarket FDA review. These tests are used for clinical purposes. They should not be regarded as investigational or for research. This laboratory is certified under the Clinical Laboratory Improvement Amendments (CLIA) as qualified to perform high complexity clinical laboratory testing. This case has been personally reviewed and interpreted by the attending (teaching) pathologist. Final Diagnosis performed by Fallon Hall MD. Electronically signed 07/07/2016 [facility] ([facility]) Resection without Tumor (Thyroid, Right Lobe) 06/21/2016 1:54 PM CDT 06/21/2016 3:27 PM CDT Narrative [facility] ([facility]) - 07/07/2016 5:34 PM CDT Pre-op diagnosis: Thyroid nodule [E04.1] Heber Germain MD LAB - PATHOLOGY/CYTO LOGY ORDERABLES [facility] ([facility]) * (ABNORMAL) CBC W AUTO DIFFERENTIAL (06/21/2016 1:23 PM CDT) Only the most recent of4 resultswithin the time period is included. WBC 9.7 3.5 - 10.5 10 3/uL [facility] RBC 3.91 3.90 - 5.00 10 6/uL [facility] Hemoglobin 10.1(L) 12.0 - 15.5 g/dL [facility] Hematocrit 31.8(L) 35.0 - 45.0 % [facility] MCV 81.3 81.0 - 97.0 fL [facility] MCH 25.8(L) 28.0 - 34.0 pg [facility] MCHC 31.8(L) 32.0 - 36.0 g/dL [facility] Platelet Count 401(H) 150 - 400 10 3/uL [facility] RDW-SD 43.3 36.0 - 50.0 fL [facility] RDW-CV 14.6 11.2 - 14.8 % [facility] MPV 8.3(L) 9.3 - 12.8 fL [facility] Neutrophils % 54.7 35.0 - 70.0 % [facility] Lymphocytes % 36.4 19.7 - 55.1 % [facility] Monocytes % 7.3 3.0 - 15.0 % [facility] Eosinophils % 1.5 0.0 - 6.0 % [facility] Basophil % 0.1 0.0 - 1.5 % [facility] Neutrophils Absolute 5.3 1.6 - 7.0 10 3/uL [facility] Lymphocyte Absolute 3.5(H) 0.8 - 2.9 10 3/uL [facility] Monocytes Absolute 0.70(H) 0.14 - 0.66 10 3/uL [facility] Eosinophils Absolute 0.14 0.00 - 0.22 10 3/uL [facility] Basophils Absolute 0.01 0.00 - 0.06 10 3/uL [facility] Immature Granulocytes % 0.2 0.0 - 1.0 % [facility] Blood specimen (specimen) BLOOD SPECIMEN / Unknown 06/21/2016 1:23 PM CDT 06/21/2016 1:32 PM CDT Nargis Corona MD LAB - HEMATOLOGY ORDERABLES [address] [phone] * TYPE + SCREEN PANEL (06/21/2016 8:35 AM CDT) Typem B POS [facility] Antibody Screen NEG [facility] Blood specimen (specimen) 06/21/2016 8:35 AM CDT 06/21/2016 8:52 AM CDT Heber Germain MD LAB - BLOOD BANK ORD ERABLES [facility] [address] [place] [address] * BASIC METABOLIC PANEL (CALCIUM TOTAL) (06/14/2016 10:00 AM CDT) BUN 10 7 - 26 mg/dL [facility] Creatinine 0.7 0.6 - 1.2 mg/dL [facility] Sodium 139 136 - 145 mmol/L [facility] Potassium 4.4 3.5 - 4.5 mmol/L [facility] Chloride 104 98 - 107 mmol/L [facility] CO2 25 22 - 29 mmol/L [facility] Glucose 113 70 - 115 mg/dL [facility] Calcium 9.5 8.4 - 10.2 mg/dL [facility] Anion Gap 14 8 - 18 [facility] BUN/Creatinine Ratio 14 7 - 23 [facility] Osmolality Calculated 288 270 - 300 mOsm/kg [facility] eGFR >60 >60 mL/min/1.7 3 m2 [facility] Blood specimen (specimen) BLOOD SPECIMEN / Unknown 06/14/2016 10:00 AM CDT 06/14/2016 10:57 AM CDT Leonor Koch AUDITOR-ABSENCE MANAGEMENT CONSULTANT LAB - MAYDA KITTY ORDERABLES Performing Organization Address City/[facility]/ZIP Co de Phone Number [facility] [address] [phone] * PATHOLOGY/GENETICS HISTORICAL-ONBASE (05/13/2016) 05/13/2016 Historical Provider LAB - CHEMISTRY O RDERABLES [facility] [address] Care Teams Cushion Assembler Relationship Specialty Start Date End Date Martha Gray MD PCP - General 05/04/18
== END 2024-05-17 14:42 | disposition home or self-care (01) ==
LOC: ANHGOSHLAB 14:42
PROVIDERS: PCP Family Medicine; Visit Provider Nurse Practitioner Family
DX: R30.0 Dysuria (principal)
CPT/HCPCS: 87086

== ENCOUNTER 2024-06-17 14:05 | Outpatient (CLI) | payer MEDICARE, SELFPAY ==
--- NOTE | ~2024-06-17 | MM_ITS ---
EXAMINATION: MM screening meme BI w jessica HISTORY: Screening TECHNIQUE: Craniocaudal and mediolateral oblique 3-D tomosynthesis images were obtained and synthetic 2-D images were generated. CAD analysis was submitted and interpreted. COMPARISON: Comparison to multiple prior studies sequentially, with oldest reviewed study dated 12/12. BREAST PARENCHYMAL COMPOSITION: Not dense: There are scattered areas of fibroglandular density. FINDINGS: There is no evidence of suspicious mass, calcification, or architectural distortion to sugg est malignancy in either breast. There has been no suspicious interval change. IMPRESSION: 1. No mammographic evidence of malignancy. 2. Recommend routine screening mammography in one year. BI-RADS Category 1: Negative Reviewed, dictated and finalized at location A.
== END 2024-06-17 14:06 | disposition home or self-care (01) ==
LOC: MICIMG 14:05
PROVIDERS: PCP Family Medicine; Visit Provider Student in an Organized Health Care Education/Training Program
DX: Z12.31 Encounter for screening mammogram for malignant neoplasm of breast (principal)
CPT/HCPCS: 77063; 77067

== ENCOUNTER 2024-06-27 13:18 | Outpatient (CLI) | payer MEDICARE, SELFPAY ==
--- OUTSIDE RECORDS SUMMARY | 2024-06-27 13:38 | XMS_ITS | Encounter Summary ---
Author Organization [facility] Address [address] [facility] [place] [address] Phone Care Team Providers Care Conventions Assistant Name Role Phone Benji Rhonda Seymour APRN, GREGG Unavailable Leticia David MD Unavailable Boom Ram Primary Care Provider Reason for Visit * Reason Comments Medication Refill Encounter Details Date Type Department Care Team (Late Contact Info) Description 03/23/2023 Refill [facility] - Primary Care - [place] [address] [place] [address] Boom Ram PAC [address] [place] [address] Medication Refill Social History Tobacco [...] Depression Total Score: 0 01/21/20 2:00 PM RENTAL SALES REPRESENTATIVE documented as of this encounter Care Teams Conventions Assistant Relationship Specialty Start Date End Date Boom Ram, PAC [address] [place] [address] PCP - General Physician County Manager 01/20/22 Rhonda Leblanc, DIGITAL FORENSIC EXAMINER, POISING INSPECTOR Nurse Practitioner Advanced Practice Nurse 11/20/15 Leticia David MD [address] [phone] Consulting Physician Endocrinology 09/28/21 documented as of this encounter
--- OUTSIDE RECORDS SUMMARY | 2024-06-27 13:38 | XMS_ITS | Encounter Summary ---
Author Organization [facility] Address [address] [facility] [place] [address] Phone Care Team Providers Care Combination Presser Name Role Phone Benji Rhonda Seymour APRN, GREGG Unavailable Leticia David MD Unavailable Boom Ram Primary Care Provider [phone] Reason for Visit * Reason Comments Medication Refill Encounter Details Date Type Department Care Team (Late Contact Info) Description 08/23/2022 Refill [facility] - Primary Care - [place] [address] [place] [address] Boom Ram PAC [address] [place] [address] Medication Refill Social History Tobacco [...] Dept 07/20/22 Office Visit Boom Ram PAC [facility] 06/09/22 Office Visit [facility]om [facility]/20/22 Office Visit Boom [facility] Showing recent visits within past 365 [...] Depression Total Score: 0 01/21/20 2:00 PM CELL LINER documented as of this encounter Care Teams Combination Presser Relationship Specialty Start Date End Date Boom Ram, PAC [address] [place] [address] PCP - General Physician Roll Grinder 01/20/22 Rhonda Leblanc, BIOINFORMATICS TEAM MEMBER, TOURIST CAMP ATTENDANT Nurse Practitioner Advanced Practice Nurse 11/20/15 Leticia David MD [address] [phone] Consulting Physician Endocrinology 09/28/21 documented as of this encounter
--- OUTSIDE RECORDS SUMMARY | 2024-06-27 13:38 | XMS_ITS | Encounter Summary ---
Author Organization [facility] Address [address] [facility] [place] [address] Phone Care Team Providers Care Pneumatic System Conveyor Operator Name Role Phone Benji Rhonda Seymour APRN, GREGG Unavailable Leticia David MD Unavailable Boom Ram Primary Care Provider Reason for Visit * Reason Comments Medication Refill Encounter Details Date Type Department Care Team (Late st Contact Info) Description 06/29/2022 Refill [facility] - Primary Care - [place] [address] [place] [address] Boom Ram PAC [address] [place] [address] Medication Refill Social History Tobacco [...] Depression Total Score: 0 01/21/20 2:00 PM PIG MACHINE SUPERVISOR documented as of this encounter Care Teams Pneumatic System Conveyor Operator Relationship Specialty Start Date End Date Boom Ram PAC [address] [place] [address] PCP - General Physician Harness Placer 01/20/22 Rhonda Leblanc, DIP UNIT OPERATOR, SENIOR LITIGATION PARALEGAL Nurse Practitioner Advanced Practice Nurse 11/20/15 Leticia David MD [address] [phone] Consulting Physician Endocrinology 09/28/21 documented as of this encounter
--- OUTSIDE RECORDS SUMMARY | 2024-06-27 13:39 | XMS_ITS | Encounter Summary ---
Author Organization [facility] Address [address] [facility] [place] [address] Phone Care Team Providers Care Cobol Engineer Name Role Phone BenjiRhonda nicholson Lion AVILA, CORE STICKER Unavailable Leticia David MD Unavailable Boom Ram [facility] Primary Care Provider Reason for Visit * Reason Comments Medication Refill Encounter Details Date Type Department Care Team (Late st Contact Info) Description 10/16/2022 Refill [facility] - Primary Care - [place] [address] [place] [address] Abel Pope MD [address] [place] [address] Medication Refill Social History Tobacco [...] Depression Total Score: 0 01/21/20 2:00 PM GLASS MAKER documented as of this encounter Care Teams Cobol Engineer Relationship Specialty Start Date End Date Boom Ram PAC [address] [place] [address] PCP - General Physician Hardwood Floor Installer 01/20/22 Rhonda Leblanc, AIRCRAFT CLEANING SUPERVISOR, CORE STICKER Nurse Practitioner Advanced Practice Nurse 11/20/15 Leticia David MD [address] [phone] Consulting Physician Endocrinology 09/28/21 documented as of this encounter
--- OUTSIDE RECORDS SUMMARY | 2024-06-27 13:39 | XMS_ITS | Clinical Summary ---
Author Organization [facility] [employer] Address [address] [place] [address] Care Team Providers Care Aerospace Manager Name Role Phone Martha Gray MD Primary Care Provider [phone] Source Comments [facility] [employer] [employer],non-owned Affiliates and Associated Physician Practices is amultiple site organization consisting of ambulatory clinics and hospital sitesin [place], [place], [place] and [place]. This disclosure is being madepursuant to the Care Everywhere program and may not contain all informatio navailable regarding this patient. Last updated 17.[facility] [employer] [employer] Allergies No known active allergies Medications * Be aware that medications may not be up to date on this document. Alwaysverify current medications with the patient. ferrous sulfate EC (FERROUS SULFATE) 324 (65 [...] Active hyoscyamine 0.125 MG tablet 2 05/11/2016 Act faith omeprazole (PRILOSEC) 40 MG capsule 9 05/09/2016 Active cetirizine (ZYRTEC) 10 MG tablet Take 10 mg by mouth QDAY PRN (Allergies) . 05/20/2016 Active gabapentin (NEURONTIN) 300 MG capsule [...] drink = 0.6 oz pur e alcohol) Comments Unknown Sex and Gender Information Value Date Recorded Sex Assigned at Not on file Legal Sex Female 5:22 PM PRINCIPAL BIOSTATISTICIAN Gender Identity Not on file Sexual Orientation [...] - COLON CA SCREENING 1960 MAMMOGRAM 1960 PAP SMEAR 1960 HIV SCREENING 1975 HEPATITIS C SCREENING 02/27/1978 DTAP/TDAP/TD VACCINES (1 - Tdap) 1979 PNEUMOCOCCAL VACCINE 50+ (1 of 1 - PCV) 2010 ZOSTER VACCINE (1 of 2) 2010 SCREENING FOR DIABETES 06/15/2019 06/14/2016 Respiratory Syncytial Virus (RSV) Vaccine Pt: or over 60 yrs (1 - Risk 60-74 years 1-dose series) 2020 COVID-19 VACCINE (1 - season) 2023 DEPRESSION SCREENING 03/13/2024 MEDICARE AWV CALENDAR YEAR 2024 INFLUENZA VACCINE (Season Ended) 2024 01/24/2017, 01/29/2016, 02/26/2013, Additional history exists HEPATITIS B VACCINE Aged Out No longe r eligible based on patient's age to complete this topic HIB VACCINE Aged Out No longer eligi ble based on patient's age to complete this topic HPV VACCINE Aged Out No longer eligi ble based on patient's age to complete this topic MENINGOCOCCAL (Group B) VACCINE SHARED DECISION-MAKING Aged Out No longer eligible based on patient's age to complete this topic MENINGOCOCCAL GROUPS A/C/Y/W VACCINE Aged Out No longer eligible based on patient's age to complete this topic Procedures Procedure Name Priority Date/Time Associated Diagnosis Comments BASIC METABOLIC PANEL (CALCIUM TOTAL) Routine 06/14/2016 10:00 AM CDT from Last 3 Months or Most Recently Relevant to Health Maintenance Results * BASIC METABOLIC PANEL (CALCIUM TOTAL) (06/14/2016 10:00 AM CDT) BUN 10 7 - 26 mg/dL [facility] Creatinine 0.7 0.6 - 1.2 mg/dL [facility] Sodium 139 136 - 145 mmol/L [facility] Potassium 4.4 3.5 - 4.5 mmol/L [facility] Chloride 104 98 - 107 mmol/L [facility] CO2 25 22 - 29 mmol/L [facility] Glucose 113 70 - 115 mg/dL [facility] Calcium 9.5 8.4 - 10.2 mg/dL [facility] Anion Gap 14 8 - 18 [facility] BUN/Creatinine Ratio 14 7 - 23 [facility] Osmolality Calculated 288 270 - 300 mOsm/kg [facility] eGFR >60 >60 mL/min/1.7 3 m2 [facility] Blood specimen (specimen) BLOOD SPECIMEN / Unknown 06/14/2016 10:00 AM CDT 06/14/2016 10:57 AM CDT Leonor Wilkes Kenzieclaus MACHINE OPERATOR SLITTER TECHNICIAN-MANAGER CULTURE LAB - CHEMISTRY O RDERABLES Final Result Performing Organization Address City/State/[facility] de Phone Number [facility] [address] [phone] from Last 3 Months or Most Recently Relevant to Health Maintenance Insurance AETNA MEDIC[place] [facility] MEDICARE MEDICAID - OUT OF STATE AETNA MEDICARE [place] MEDICAID [place] Member Subscriber Plan / Payer (Ef fective 2023-Present) Name:Nirali Oropeza Relation to Subscriber:Self Name:Nirali Oropeza A Payer ID:Not on file Group ID:Not on file Type:Medicaid [place] Address: [place] [id number] AETNA MEDICARE [place] Sub[place] Plan / Payer (Ef fective 2023-Present) Name:Nirali Oropeza A Relation to Subscriber:Self Name:Nirali Oropeza A Payer ID:Not on file Group ID:Not on file Type:Medicaid [place] Address: [place] [phone] [facility] MEDICARE ADV AETNA MEDICARE ADV [place]ID [place] [facility] MEDICARE [facility] MEDICARE ADV MEDICAID - [place] Care Teams Aerospace Manager Relationship Specialty Start Date End Date Martha Gray MD PCP - General 05/04/18
--- OUTSIDE RECORDS SUMMARY | 2024-06-27 13:39 | XMS_ITS | Encounter Summary ---
Author Organization [facility] Address [address] [facility] [place] [address] Phone Care Team Providers Care Dye House Worker Name Role Phone Benji Rhonda Seymour APRN, GREGG Unavailable Leticia David MD Unavailable Boom Ram Primary Care Provider Reason for Visit * Reason Comments Medication Refill Encounter Details Date Type Department Care Team (Late Contact Info) Description 07/20/2023 Refill [facility] - Primary Care - [place] [address] [place] [address] Boom Ram PAC [address] [place] [address] Medication Refill Social History Tobacco [...] Depression Total Score: 0 01/21/20 2:00 PM PROFESSOR OF GRAPHIC DESIGN documented as of this encounter Care Teams Dye House Worker Relationship Specialty Start Date End Date Boom Ram PAC [address] [place] [address] PCP - General Physician Lokie Driver 01/20/22 Rhonda Leblanc, HIDE TANNER, FOREIGN EXCHANGE SERVICES MANAGER Nurse Practitioner Advanced Practice Nurse 11/20/15 Leticia David MD [address] [phone] Consulting Physician Endocrinology 09/28/21 documented as of this encounter
--- OUTSIDE RECORDS SUMMARY | 2024-06-27 13:39 | XMS_ITS | Referral Summary ---
Author Organization [facility] [address] [employer] Address [address] [place] [address] Phone Care Team Providers Care Director Of Adult Epilepsy Name Role Phone Robin Ahmadille RAIL SIGNAL DESIGNER Primary Care Provider Allergies Active Allergy Reactions [...] on file Legal Sex Female 2:16 AM DAIRY GRAZER Gender Identity Not on file Sexual Orientation Not on file Last Filed Vital Signs Vital Sign Reading Time Taken Comments Blood Pressure 142/54 06/09/2017 1:26 PM CDT Pulse 76 06/09/2017 1:26 PM CDT Temperature - - Respiratory Rate - - Oxygen Saturation 99% 03/29/2012 8:08 AM DAIRY GRAZER Inhaled Oxygen Concentration - - Weight 110.7 kg (244 lb) 07/14/2017 1:22 PM CDT Height 172.7 cm (5' 8 ) 05/21/2012 11:14 AM CDT Body Mass Index 37.1 05/21/2012 11:14 AM CDT Plan of Treatment Not on file Insurance [facility] Care Teams Director Of Adult Epilepsy Relationship Specialty Start Date End Date Robin Ahmadi NP [address] [place], [place] [address]Renata [facility] [place] [address] PCP - General Nurse Practitioner 06/09/17
--- OUTSIDE RECORDS SUMMARY | 2024-06-27 13:39 | XMS_ITS | Clinical Summary ---
Author Organization [facility] 1 [employer] Address [address] [place] [address] Phone Care Team Providers Care School Of Nursing Director Name Role Phone Robin Ahmadille LINE SERVICE SUPERVISOR Primary Care Provider Allergies Active Allergy Reactions [...] on file Legal Sex Female 2:16 AM PLASTER PATTERN CASTER Gender Identity Not on file Sexual Orientation Not on file Obstetrics History Last Filed Vital Signs Vital Sign Reading Time Taken Comments Blood Pressure 142/54 06/09/2017 1:26 PM CDT Pulse 76 06/09/2017 1:26 PM CDT Temperature - - Respiratory Rate - - Oxygen Saturation 99% 03/29/2012 8:08 AM PLASTER PATTERN CASTER Inhaled Oxygen Concentration - - Weight 110.7 kg (244 lb) 07/14/2017 1:22 PM CDT Height 172.7 cm (5' 8 ) 05/21/2012 11:14 AM CDT Body Mass Index 37.1 05/21/2012 11:14 AM CDT Plan of Treatment Not on file Insurance [facility] Care Teams School Of Nursing Director Relationship Specialty Start Date End Date Robin Ahmadi NP [address] [place], [place] [address]Renata [facility] [address] PCP - General Nurse Practitioner 06/09/17
--- OUTSIDE RECORDS SUMMARY | 2024-06-27 13:39 | XMS_ITS | Clinical Summary ---
Author Organization [facility] Address [address] [facility], [address] [address] Phone Care Team Providers Care Petal Cutter Name Role Phone Rhonda Leblanc APRN, GREGG [...] Lnp-s, Pf, 3 0 Mcg/0.3 Ml Dose ([employer]) 06/29/2020,06/08/2020 Influenza Vaccine 02/26/2013, 2,11/22/2010,2009,12/29/2008,01/29/2008,01/11/2007 Influenza Vaccine [...] CAD W AWILDA Routine 03/11/2022 3:35 PM DIAMOND WHEEL EDGER Encounter for screening mammogram for malignant neoplasm of breast PATHOLOGY CYTOLOGY COPPERSMITH APPRENTICE Routine 10/04/2016 4:18 PM CDT Well woman exam with routine gynecological exam HM COLONOSCOPY Routine 12/29/2014 from Last 3 Months or Most Recently Relevant to Health Maintenance Results * PILAR SCREENING BILATERAL DIGITAL W CAD W AWILDA (03/11/2022 3:35 PM DIAMOND WHEEL EDGER) Anatomical Region Laterality Modality breast Bilateral Mammography 03/11/2022 2:58 PM DIAMOND WHEEL EDGER Narrative 03/15/2022 8:16 AM DIAMOND WHEEL EDGER - PILAR SCREENING BILATERAL DIGITAL W CAD [...] to exams dated: 10/09/2019, 09/04/2017, and 10/04/2016 [facility]. BREAST TISSUE:The tissue of both breasts is [...] exam. Electronically signed by: Cory quinonez/diana:03/11/2022 18:49:58 Financial Health Counselor(s): RT Jeyson(R)(M), [facility] letter sent: Normal Exam Reading location: [facility] BI-RADS: 1 Negative Procedure Note Cory Hassan [...] to exams dated: 10/09/2019, 09/04/2017, and 10/04/2016 [facility]. BREAST TISSUE:The tissue of both breasts is [...] exam. Electronically signed by: Cory quinonez/diana:03/11/2022 18:49:58 Financial Health Counselor(s): Marie Arroyo RT(R)(M), [facility] letter sent: Normal Exam Reading location: [facility] BI-RADS: 1 Negative us Boom Ram PAC IMG MAMMO ORDERABLES Final R esult * PATHOLOGY CYTOLOGY COPPERSMITH APPRENTICE (10/04/2016 4:18 PM CDT) SPECIMEN ADEQUACY Satisfactory for evaluation, squamous cells only. History of hysterectomy noted 10/07/2016 1:40 PM CDT [facility] DESCRIPTIVE DIAGNOSIS Negative for intraepithelial lesions. No dysplastic cells present. 10/07/2016 1:40 PM CDT [facility] at 1340 CDT AUTOMATED EXAMINATION Analysis of this sample has been assisted by an automated imaging and review system ([id number] System, [place], [facility] [place] This case is further evaluated and finalized by a curatorial assistant and/or pathologist. 10/07/2016 1:40 PM CDT [facility] DISCLAIMER The PAP smear is a [...] unless clinically indicated. 10/07/2016 1:40 PM CDT [facility] Case Report Gynecologic Cytology Report Case: [id number] Authorizing Provider: Harvey Roger MD Collected: 10/04/2016 04:18 PM Ordering Location: [facility] Received: 10/04/2016 04:18 PM GROUP - OBSTETRICS AND GYNECOLOGY - [place] First Screen: Lian Bettencourt Specimen: Cervical/Endocervic al, liquid based thin layer preparation (Thin Prep ), CERVIX/ENDOCERVIX 10/07/2016 1:40 PM CDT [facility] HPV Reflex if ASCUS? No 10/07/2016 1:40 PM CDT [facility] Specimen of unknown material (specimen) CERVIX UTERI STRUCTURE / Unknown 10/04/2016 4:18 PM CDT 10/04/2016 4:18 PM CDT Harvey Roger MD PATHOLOGY/CYTOLOGY ORDERABL ES Final Result Performing Organization Address [facility] de Phone Number [facility] [address] [place] [address], * COLONOSCOPY (12/29/2014) Nora Haywood MD PROCEDURE/MINOR SURGICA L ORDERABLES Final Result from Last 3 Months or Most Recently Relevant to Health Maintenance Insurance MEDICAID [place] MEDICARE C AETNA MEDICARE C [employer] on file Care Teams Petal Cutter Relationship Specialty Start Date End Date Boom Ram PAC [address] [place] [phone] PCP - General Physician Roll On Man 01/20/22 Rhonda Leblanc, ACADEMIC TUTOR, FORMULA CHECKER Nurse Practitioner Advanced Practice Nurse 11/20/15 Leticia David MD [address] [address] Consulting Physician Endocrinology 09/28/21
--- OUTSIDE RECORDS SUMMARY | 2024-06-27 13:39 | XMS_ITS | Encounter Summary ---
Author Organization [facility] Address [address] [facility] [place] [address] Phone Care Team Providers Care Second Chef Name Role Phone Rhonda Leblanc MARGARITA, MOLD FILLER Unavailable Dilan Moon MD Primary Care Provider Leticia David MD Unavailable Boom Ram Primary Care Provider [phone] Reason for Visit * Reason Comments Medication Refill Encounter Details Date Type Department Care Team (Late st Contact Info) Description 02/20/2020 Refill [facility] Oncology Services [address] [place] [address] Lorenzo Naylor MD [address] [place] [address] Medication Refill Social History Tobacco [...] COVID-19? No / Unsure 02/10/2020 11:38 AM ASSOCIATE PROJECT MANAGER documented as of this encounter Miscellaneous Notes * Telephone Encounter - Dixie Cronin RN - 02/24/2020 10:24 AM ASSOCIATE PROJECT MANAGER Refilled Ferrous Sulfate CIATE PROJECT MANAGER documented in this encounter Plan of Treatment Not on file documented as of this encounter Visit Diagnoses Diagnosis Iron deficiency anemia, unspecified iron deficiency anemia type documented in this encounter Additional Health Concerns Assessment Noted Time PHQ-9 Depression Total Score: 0 09/17/19 17 1:00 PM CDT documented as of this encounter Care Teams Second Chef Relationship Specialty Start Date End Date Dilan Moon MD PCP - General Sports Medicine 08/08/19 01/19/22 Boom Ram, PAC [address] [place] [address] PCP - General Physician Securities Teller 01/20/22 Rhonda Leblanc, MACHINE LEAD BURNER, MOLD FILLER Nurse Practitioner Advanced Practice Nurse 11/20/15 Leticia David MD [address] [phone] Consulting Physician Endocrinology 09/28/21 documented as of this encounter
--- OUTSIDE RECORDS SUMMARY | 2024-06-27 13:39 | XMS_ITS | Encounter Summary ---
Author Organization [facility] Address [address] [facility] [place] [address] Phone Care Team Providers Care Bibliographic Services Specialist Name Role Phone Benji Rhonda Seymour APRN, GREGG Unavailable Leticia David MD Unavailable Boom Ram Primary Care Provider [phone] Reason for Visit * Reason Comments Medication Refill Encounter Details Date Type Department Care Team (Late Contact Info) Description 07/14/2023 Refill [facility] - Primary Care - [place] [address] [place] [address] Boom Ram PAC [address] [place] [address] Medication Refill Social History Tobacco [...] Dept 10/03/22 Office Visit Abel Pope MD [facility] 07/20/22 Office Visit Boom Ram PAC [facility] Showing recent visits within past 365 [...] Depression Total Score: 0 01/21/20 2:00 PM GUN NUMBER documented as of this encounter Care Teams Bibliographic Services Specialist Relationship Specialty Start Date End Date Boom Ram PAC [address] [place] [address] PCP - General Physician Sales Facilitator 01/20/22 Rhonda Leblanc, MARGARITA, MENTAL HEALTH NURSE Nurse Practitioner Advanced Practice Nurse 11/20/15 Leticia David MD [address] [phone] Consulting Physician Endocrinology 09/28/21 documented as of this encounter
--- OUTSIDE RECORDS SUMMARY | 2024-06-27 13:39 | XMS_ITS | Encounter Summary ---
Author Organization [facility] Address [address] [facility] [place] [address] Phone Care Team Providers Care Maintainer Plant Name Role Phone Rhonda Leblanc MARGARITA, DATA ENTRY SUPERVISOR Unavailable Dilan Moon MD Primary Care Provider Leticia David MD Unavailable Boom Ram Primary Care Provider [phone] Reason for Visit * Reason Comments Medication Refill Encounter Details Date Type Department Care Team (Late st Contact Info) Description 08/05/2020 [facility]ill [facility] Oncology Services [address] [place] [address] Lorenzo Naylor MD [address] [place] [address] Medication Refill Social History Tobacco [...] documented as of this encounter Care Teams Maintainer Plant Relationship Specialty Start Date End Date Dilan Moon MD PCP - General Sports Medicine 08/08/19 01/19/22 Boom Ram, PAC [address] [place] [address] PCP - General Physician Grey Iron Molder 01/20/22 Rhonda Leblanc, WELFARE VISITOR, DATA ENTRY SUPERVISOR Nurse Practitioner Advanced Practice Nurse 11/20/15 Leticia David MD [address] [phone] Consulting Physician Endocrinology 09/28/21 documented as of this encounter
--- OUTSIDE RECORDS SUMMARY | 2024-06-27 13:39 | XMS_ITS | Encounter Summary ---
Author Organization [facility] Address [address] [facility] [place] [address] Phone Care Team Providers Care Technical Sales Representatives Name Role Phone Benji Rhonda Seymour APRN, GREGG Unavailable Leticia David MD Unavailable Boom Ram Primary Care Provider Reason for Visit * Reason Comments Medication Refill Encounter Details Date Type Department Care Team (Late Contact Info) Description 10/26/2022 Refill [facility] - Primary Care - [place] [address] [place] [address] Boom Ram PAC [address] [place] [address] Medication Refill Social History Tobacco [...] Total Score: 0 01/21/20 22 2:00 PM AUTO RENTAL SUPERVISOR documented as of this encounter Care Teams Technical Sales Representatives Relationship Specialty Start Date End Date Boom Ram PAC [address] [place] [address] PCP - General Physician High School Special Education Teacher 01/20/22 Rhonda Leblanc, BURGLAR ALARM MECHANIC, MOP MACHINE OPERATOR Nurse Practitioner Advanced Practice Nurse 11/20/15 Leticia David MD [address] [phone] Consulting Physician Endocrinology 09/28/21 documented as of this encounter
[2024-06-27 19:49] LABS: Alanine Aminotransferase 12 U/L (6-35); Alkaline Phosphatase 68 U/L (38-126); Anion Gap 7 mmol/L (4-12); Aspartate Amino Transferase 33 U/L (14-36); Bilirubin,Total 0.9 mg/dL (0.2-1.3); Blood Urea Nitrogen 11 mg/dL (7-17); Calcium 9.3 mg/dL (8.4-10.2); Carbon Dioxide 27 mmol/L (22-30); Chloride 103 mmol/L (98-107); Estimated Glomerular Filt Rate > 60; Glucose 154 mg/dL (65-110); Potassium 4.5 mmol/L (3.4-5.0); Sodium 137 mmol/L (137-145)
== END 2024-06-27 13:19 | disposition home or self-care (01) ==
LOC: ANHGOSHLAB 13:19
PROVIDERS: PCP Family Medicine; Visit Provider Student in an Organized Health Care Education/Training Program
DX: E03.9 Hypothyroidism, unspecified (principal); E87.5 Hyperkalemia
CPT/HCPCS: 36415; 80053; 84443

== ENCOUNTER 2024-07-09 11:02 | Outpatient (NON) | payer MEDICARE, SELFPAY ==
--- OUTSIDE RECORDS SUMMARY | 2024-07-09 12:29 | XMS_ITS | Encounter Summary ---
Author Organization [facility] Address [address] [facility] [place] [address] Phone Care Team Providers Care Risk Intern Name Role Phone Benji Rhonda Seymour APRN, GREGG Unavailable Leticia David MD Unavailable Boom Ram Primary Care Provider Reason for Visit * Reason Comments Medication Refill Encounter Details Date Type Department Care Team (Late Contact Info) Description 10/26/2022 Refill [facility] - Primary Care - [place] [address] [place] [address] Boom Ram PAC [address] [place] [address] Medication Refill Social History Tobacco [...] Total Score: 0 01/21/20 22 2:00 PM DIGITAL RETOUCHER documented as of this encounter Care Teams Risk Intern Relationship Specialty Start Date End Date Boom Ram PAC [address] [place] [address] PCP - General Physician Head Soft Sugar Operator 01/20/22 Rhonda Leblanc, CYTOGENETIC TECHNOLOGIST, SIDE BOSS Nurse Practitioner Advanced Practice Nurse 11/20/15 Leticia David MD [address] [phone] Consulting Physician Endocrinology 09/28/21 documented as of this encounter
--- OUTSIDE RECORDS SUMMARY | 2024-07-09 12:29 | XMS_ITS | Encounter Summary ---
Author Organization [facility] Address [address] [facility] [place] [address] Phone Care Team Providers Care Land Mobile Radio Technician Name Role Phone Rhonda Leblanc MARGARITA, BIOLOGY TUTOR Unavailable Dilan Moon MD Primary Care Provider [phone] Leticia David MD Unavailable Boom Ram Primary Care Provider Reason for Visit * Reason Comments Medication Refill Encounter Details Date Type Department Care Team (Late st Contact Info) Description 02/20/2020 Refill [facility] Oncology Services [address] [place] [address] Lorenzo Naylor MD [address] [place] [address] Medication Refill Social History Tobacco [...] COVID-19? No / Unsure 02/10/2020 11:38 AM HEAD COACH documented as of this encounter Miscellaneous Notes * Telephone Encounter - Dixie Cronin RN - 02/24/2020 10:24 AM HEAD COACH Refilled Ferrous Sulfate COACH documented in this encounter Plan of Treatment Not on file documented as of this encounter Visit Diagnoses Diagnosis Iron deficiency anemia, unspecified iron deficiency anemia type documented in this encounter Additional Health Concerns Assessment Noted Time PHQ-9 Depression Total Score: 0 09/17/19 17 1:00 PM CDT documented as of this encounter Care Teams Land Mobile Radio Technician Relationship Specialty Start Date End Date Dilan Moon MD PCP - General Sports Medicine 08/08/19 01/19/22 Boom Ram, PAC [address] [place] [address] PCP - General Physician Exhibit Artist 01/20/22 Rhonda Leblanc, INFORMATION SPECIALIST, BIOLOGY TUTOR Nurse Practitioner Advanced Practice Nurse 11/20/15 Leticia David MD [address] [phone] Consulting Physician Endocrinology 09/28/21 documented as of this encounter
--- OUTSIDE RECORDS SUMMARY | 2024-07-09 12:29 | XMS_ITS | Encounter Summary ---
Author Organization [facility] Address [address] [facility] [place] [address] Phone Care Team Providers Care Executive Secretary Social Welfare Name Role Phone Benji Rhonda Seymour APRN, GREGG Unavailable Leticia David MD Unavailable Boom Ram Primary Care Provider [phone] Reason for Visit * Reason Comments Medication Refill Encounter Details Date Type Department Care Team (Late Contact Info) Description 07/14/2023 Refill [facility] - Primary Care - [place] [address] [place] [address] Boom Ram PAC [address] [place] [address] Medication Refill Social History Tobacco [...] Dept 10/03/22 Office Visit Abel Pope MD [facility] 07/20/22 Office Visit Boom Ram PAC [facility] Showing recent visits within past 365 days [...] Depression Total Score: 0 01/21/20 2:00 PM BIODIESEL PLANT OPERATIONS ENGINEER documented as of this encounter Care Teams Executive Secretary Social Welfare Relationship Specialty Start Date End Date Boom Ram PAC [address] [place] [address] PCP - General Physician Piercer Operator 01/20/22 Rhonda Leblanc, MARGARITA, C4 PLANNER Nurse Practitioner Advanced Practice Nurse 11/20/15 Leticia David MD [address] [phone] Consulting Physician Endocrinology 09/28/21 documented as of this encounter
--- OUTSIDE RECORDS SUMMARY | 2024-07-09 12:29 | XMS_ITS | Encounter Summary ---
Author Organization [facility] Address [address] [facility] [place] [address] Phone Care Team Providers Care Wood Repatcher Name Role Phone Benji Rhonda Seymour APRN, GREGG Unavailable Leticia David MD Unavailable Boom Ram Primary Care Provider [phone] Reason for Visit * Reason Comments Medication Refill Encounter Details Date Type Department Care Team (Late Contact Info) Description 08/23/2022 Refill [facility] - Primary Care - [place] [address] [place] [address] Boom Ram PAC [address] [place] [address] Medication Refill Social History Tobacco [...] Dept 07/20/22 Office Visit Boom Ram PAC [facility] 06/09/22 Office Visit Boom Ram [facility] 05/19/22 Office Visit Boom Ram [facility] 01/20/22 Office Visit Boom Ram [facility] Showing recent visits within past 365 [...] Provider Dept 07/20/22 Office Visit Boom Ram, [facility] 06/09/22 Office Visit Boom Ram, [facility] 05/19/22 Office Visit Boom Ram, [facility] 01/20/22 Office Visit Boom Ram, [facility] Showing recent visits within past 365 [...] Provider Dept 07/20/22 Office Visit Boom Ram [facility] 06/09/22 Office Visit Boom Ram [facility] 05/19/22 Office Visit Boom Ram [facility] 01/20/22 Office Visit Boom Ram [facility] Showing recent visits within past 365 [...] Depression Total Score: 0 01/21/20 2:00 PM CONSUMER LENDER documented as of this encounter Care Teams Wood Repatcher Relationship Specialty Start Date End Date Boom Ram, PAC [address] [place] [address] PCP - General Physician Chair Trimmer 01/20/22 Rhonda Leblanc, TANK SYSTEMS MAINTAINER, SCALES INSPECTOR Nurse Practitioner Advanced Practice Nurse 11/20/15 Leticia David MD [address] [phone] Consulting Physician Endocrinology 09/28/21 documented as of this encounter
--- OUTSIDE RECORDS SUMMARY | 2024-07-09 12:29 | XMS_ITS | Encounter Summary ---
Author Organization [facility] Address [address] [facility] [place] [address] Phone Care Team Providers Care Implementation Coordinator Name Role Phone Benji Rhonda Seymour APRN, GREGG Unavailable Leticia David MD Unavailable Boom Ram Primary Care Provider [phone] Reason for Visit * Reason Comments Medication Refill Encounter Details Date Type Department Care Team (Late Contact Info) Description 07/20/2023 Refill [facility] - Primary Care - [place] [address] [place] [address] Boom Ram PAC [address] [place] [address] Medication Refill Social History Tobacco [...] Depression Total Score: 0 01/21/20 2:00 PM MAINSPRING FABRICATION SUPERVISOR documented as of this encounter Care Teams Implementation Coordinator Relationship Specialty Start Date End Date Boom Ram PAC [address] [place] [address] PCP - General Physician Licensed Mortician 01/20/22 Rhonda Leblanc, PEWTER FABRICATOR, WICK AND BASE ASSEMBLER Nurse Practitioner Advanced Practice Nurse 11/20/15 Leticia David MD [address] [address] Consulting Physician Endocrinology 09/28/21 documented as of this encounter
--- OUTSIDE RECORDS SUMMARY | 2024-07-09 12:29 | XMS_ITS | Encounter Summary ---
Author Organization [facility] Address [address] [facility] [place] [address] Phone Care Team Providers Care Fire Chief Deputy Name Role Phone Benji Rhonda Seymour APRN, GREGG Unavailable Leticia David MD Unavailable Boom Ram Primary Care Provider Reason for Visit * Reason Comments Medication Refill Encounter Details Date Type Department Care Team (Late st Contact Info) Description 06/29/2022 Refill [facility] - Primary Care - [place] [address] [place] [address] Boom Ram PAC [address] [place] [address] Medication Refill Social History Tobacco [...] Miscellaneous Notes * Telephone Encounter - Yvette Lanids RN - 06/30/2022 8:29 AM CDT Refill requested too soon. documented in this encounter Plan of Treatment Not on file documented as of this encounter Visit Diagnoses Not on filedocumented in this encounter Additional Health Concerns Assessment Noted Time PHQ-9 Depression Total Score: 0 01/21/20 2:00 PM NETWORK MANAGEMENT SPECIALIST documented as of this encounter Care Teams Fire Chief Deputy Relationship Specialty Start Date End Date Boom Ram PAC [address] [place] [address] PCP - General Physician Clay Burner 01/20/22 Rhonda Leblanc, SCUBA DIVER, NANOTECHNOLOGY ENGINEERING TECHNICIAN Nurse Practitioner Advanced Practice Nurse 11/20/15 Leticia David MD [address] [phone] Consulting Physician Endocrinology 09/28/21 documented as of this encounter
--- OUTSIDE RECORDS SUMMARY | 2024-07-09 12:29 | XMS_ITS | Clinical Summary ---
Author Organization [facility] Address [address] [facility], [address] [address] Phone Care Team Providers Care Account Retention Representative Name Role Phone Rhonda Leblanc APRN, GREGG Unavailable Leticia David MD Unavailable Boom Ram PAC Primary Care Provider [phone] Allergies No known active allergies Medications aspirin [...] Lnp-s, Pf, 3 0 Mcg/0.3 Ml Dose (Cloudmark) 06/29/2020,06/08/2020 Influenza Vaccine 02/26/2013, 2,11/22/2010,2009,12/29/2008,01/29/2008,01/11/2007 Influenza Vaccine [...] CAD W AWILDA Routine 03/11/2022 3:35 PM DATA WAREHOUSE ANALYST Encounter for screening mammogram for malignant neoplasm of breast PATHOLOGY CYTOLOGY EYE PHYSICIAN Routine 10/04/2016 4:18 PM CDT Well woman exam with routine gynecological exam HM COLONOSCOPY Routine 12/29/2014 from Last 3 Months or Most Recently Relevant to Health Maintenance Results * PILAR SCREENING BILATERAL DIGITAL W CAD W AWILDA (03/11/2022 3:35 PM DATA WAREHOUSE ANALYST) Anatomical Region Laterality Modality breast Bilateral Mammography 03/11/2022 2:58 PM DATA WAREHOUSE ANALYST Narrative 03/15/2022 8:16 AM DATA WAREHOUSE ANALYST - PILAR SCREENING BILATERAL DIGITAL W CAD [...] to exams dated: 10/09/2019, 09/04/2017, and 10/04/2016 [facility]. BREAST TISSUE:The tissue of both breasts is [...] exam. Electronically signed by: Cory quinonez/diana:03/11/2022 18:49:58 Automatic Dry Starch Operator(s): RT Jeyson(R)(M), [facility] letter sent: Normal Exam Reading location: [facility] BI-RADS: 1 Negative Procedure Note [...] to exams dated: 10/09/2019, 09/04/2017, and 10/04/2016 [facility]. BREAST TISSUE:The tissue of both breasts is [...] exam. Electronically signed by: Cory quinonez/diana:03/11/2022 18:49:58 Automatic Dry Starch Operator(s): Marie Arroyo RT(R)(M), [facility] letter sent: Normal Exam Reading location: [facility] BI-RADS: 1 Negative us Boom Ram PAC IMG MAMMO ORDERABLES Final R esult * PATHOLOGY CYTOLOGY EYE PHYSICIAN (10/04/2016 4:18 PM CDT) SPECIMEN ADEQUACY Satisfactory for evaluation, squamous cells only. History of hysterectomy noted 10/07/2016 1:40 PM CDT [facility] DESCRIPTIVE DIAGNOSIS Negative for intraepithelial lesions. No dysplastic cells present. 10/07/2016 1:40 PM CDT [facility] at 1340 CDT AUTOMATED EXAMINATION Analysis of this sample has been assisted by an automated imaging and review system (Genie[employer] Imaging System, [employer], [facility] [place]). This case is further evaluated and finalized by a fabric cutter and/or pathologist. 10/07/2016 1:40 PM CDT [facility] DISCLAIMER The PAP smear is a screening [...] unless clinically indicated. 10/07/2016 1:40 PM CDT [facility] Case Report Gynecologic Cytology Report Case: [id number] Authorizing Provider: Harvey Roger MD Collected: 10/04/2016 04:18 PM Ordering Location: [facility] Received: 10/04/2016 04:18 PM GROUP - OBSTETRICS AND GYNECOLOGY - [place] First Screen: Lian Bettencourt Specimen: Cervical/Endocervic al, liquid based thin layer preparation (Thin Prep ), CERVIX/ENDOCERVIX 10/07/2016 1:40 PM CDT [facility] HPV Reflex if ASCUS? No 10/07/2016 1:40 PM CDT [facility] Specimen of unknown material (specimen) CERVIX UTERI STRUCTURE / Unknown 10/04/2016 4:18 PM CDT 10/04/2016 4:18 PM CDT Harvey Roger MD PATHOLOGY/CYTOLOGY ORDERABL ES Final Result Performing Organization Address [facility] de Phone Number [facility] [address] [place] [address], * COLONOSCOPY (12/29/2014) Nora Haywood MD PROCEDURE/MINOR SURGICA L ORDERABLES Final Result from Last 3 Months or Most Recently Relevant to Health Maintenance Insurance MEDICAID [place] MEDICARE C AETNA MEDICARE C [employer] on file Care Teams Account Retention Representative Relationship Specialty Start Date End Date Boom Ram PAC [address] [place] [phone] PCP - General Physician County Library Director 01/20/22 Rhonda Leblanc, SKIVER MACHINE OPERATOR, WAFER MOUNTER Nurse Practitioner Advanced Practice Nurse 11/20/15 Leticia David MD [address] [address] Consulting Physician Endocrinology 09/28/21
--- OUTSIDE RECORDS SUMMARY | 2024-07-09 12:29 | XMS_ITS | Encounter Summary ---
Author Organization [facility] Address [address] [facility] [place] [address] Phone Care Team Providers Care Bread Wrapper Operator Name Role Phone Rhonda Leblanc MARGARITA, HAIRSPRING TRUING INSPECTOR Unavailable Dilan Moon MD Primary Care Provider [phone] Leticia David MD Unavailable Boom Ram Primary Care Provider Reason for Visit * Reason Comments Medication Refill Encounter Details Date Type Department Care Team (Late st Contact Info) Description 08/05/2020 [facility]ill [facility] Oncology Services [address] [place] [address] Lorenzo Naylor MD [address] [place] [address] Medication Refill Social History Tobacco [...] documented as of this encounter Care Teams Bread Wrapper Operator Relationship Specialty Start Date End Date Dilan Moon MD PCP - General Sports Medicine 08/08/19 01/19/22 Boom Ram, PAC [address] [place] [address] PCP - General Physician Packing And Shipping Clerk 01/20/22 Rhonda Leblanc, GRINDER SET UP OPERATOR GEAR TOOL, HAIRSPRING TRUING INSPECTOR Nurse Practitioner Advanced Practice Nurse 11/20/15 Leticia David MD [address] [phone] Consulting Physician Endocrinology 09/28/21 documented as of this encounter
--- OUTSIDE RECORDS SUMMARY | 2024-07-09 12:29 | XMS_ITS | Clinical Summary ---
Author Organization [facility] Address [address] [place] [address] Care Team Providers Care Cake Wrapper Name Role Phone Martha Gray MD Primary Care Provider [phone] Source Comments [facility],non-owned Affiliates and Associated Physician Practices is amultiple site organization consisting of ambulatory clinics and hospital sitesin [place], [place], [place]. This disclosure is being madepursuant to the Care Everywhere program and may not contain all informatio navailable regarding this patient. Last updated 17.[facility] Allergies No known active allergies Medications * [...] on file Legal Sex Female 5:22 PM ASSEMBLY ASSOCIATE Gender Identity Not on file Sexual Orientation [...] CDT) BUN 10 7 - 26 mg/dL [facility] Creatinine 0.7 0.6 - 1.2 mg/dL [facility] Sodium 139 136 - 145 mmol/L [facility] Potassium 4.4 3.5 - 4.5 mmol/L [facility] Chloride 104 98 - 107 mmol/L [facility] CO2 25 22 - 29 mmol/L [facility] Glucose 113 70 - 115 mg/dL [facility] Calcium 9.5 8.4 - 10.2 mg/dL [facility] Anion Gap 14 8 - 18 [facility] BUN/Creatinine Ratio 14 7 - 23 [facility] Osmolality Calculated 288 270 - 300 mOsm/kg [facility] eGFR >60 >60 mL/min/1.7 3 m2 [facility] Blood specimen (specimen) BLOOD SPECIMEN / Unknown 06/14/2016 10:00 AM CDT 06/14/2016 10:57 AM CDT Leonor Wilkes Kenzieclaus SUPPLY CHAIN DEVELOPMENT MANAGER-RADIAL DRILL OPERATOR LAB - CHEMISTRY O RDERABLES Final Result Performing Organization Address City/State/[facility] de Phone Number [facility] [address] [phone] from Last 3 Months or Most Recently Relevant to Health Maintenance Insurance AETNA MEDICARE [place] [facility] MEDICARE MEDICAID - OUT OF STATE AETNA MEDICARE AD[place]ID [place] Member Subscriber Plan / Payer (Ef fective 2023-Present) Name:Nirali Oropeza Relation to Subscriber:Self Name:Nirali Oropeza A Payer ID:Not on file Group ID:Not on file Type:Medicaid [place] Address: [place] [id number] AETNA MEDICARE [place] Subscriber Plan / Payer (Ef fective 2023-Present) Name:Nirali Oropeza A Relation to Subscriber:Self Name:Nirali Oropeza A Payer ID:Not on file Group ID:Not on file Type:Medicaid [place] Address: [place] [phone] [facility] MEDICARE ADV AETNA MEDICARE [place]V [place]ID [place] [facility] MEDICARE [facility] MEDICARE [place]V MED[place]ID - [place] Care Teams Cake Wrapper Relationship Specialty Start Date End Date Martha Gray MD PCP - General 05/04/18
--- OUTSIDE RECORDS SUMMARY | 2024-07-09 12:29 | XMS_ITS | Encounter Summary ---
Author Organization [facility] Address [address] [facility] [address] Phone Care Team Providers Care Frame Stripper And Crusher Name Role Phone Benji Rhonda Seymour APRN, GREGG Unavailable Leticia David MD Unavailable Boom Ram Primary Care Provider [phone] Reason for Visit * Reason Comments Medication Refill Encounter Details Date Type Department Care Team (Late Contact Info) Description 03/23/2023 Refill [facility] - Primary Care - [place] [address] [place] [address] Boom Ram PAC [address] [place] [address] Medication Refill Social History Tobacco [...] Depression Total Score: 0 01/21/20 2:00 PM FRAME STRIPPER AND CRUSHER documented as of this encounter Care Teams Frame Stripper And Crusher Relationship Specialty Start Date End Date Boom Ram, PAC [address] [place] [address] PCP - General Physician Airport Electrician 01/20/22 Rhonda Leblanc, PRESIDENT & CEO, TELECOM ASSISTANT Nurse Practitioner Advanced Practice Nurse 11/20/15 Leticia David MD [address] [phone] Consulting Physician Endocrinology 09/28/21 documented as of this encounter
--- OUTSIDE RECORDS SUMMARY | 2024-07-09 12:29 | XMS_ITS | Encounter Summary ---
Author Organization [facility] Address [address] [facility] [place] [address] Phone Care Team Providers Care Vehicle Glass Technician Name Role Phone BenjiRhonda nicholson Lion AVILA, DRY CELL ASSEMBLY SUPERVISOR Unavailable Leticia David MD Unavailable Boom Ram [facility] Primary Care Provider Reason for Visit * Reason Comments Medication Refill Encounter Details Date Type Department Care Team (Late st Contact Info) Description 10/16/2022 Refill [facility] - Primary Care - [place] [address] [place] [address] Abel Pope MD [address] [place] [address] Medication Refill Social History Tobacco [...] Depression Total Score: 0 01/21/20 2:00 PM MEMBERSHIP CORRESPONDENT documented as of this encounter Care Teams Vehicle Glass Technician Relationship Specialty Start Date End Date Boom Ram PAC [address] [place] [address] PCP - General Physician Screen Maker 01/20/22 Rhonda Leblanc, BAR PORTER, DRY CELL ASSEMBLY SUPERVISOR Nurse Practitioner Advanced Practice Nurse 11/20/15 Leticia David MD [address] [phone] Consulting Physician Endocrinology 09/28/21 documented as of this encounter
--- OUTSIDE RECORDS SUMMARY | 2024-07-09 12:29 | XMS_ITS | Clinical Summary ---
Author Organization [facility] [address] [place] [address] Phone Care Team Providers Care Substation Operator Conversion Name Role Phone Robin Ahmadille PROFESSOR OF BUSINESS Primary Care Provider Allergies Active Allergy Reactions [...] on file Legal Sex Female 2:16 AM HOSPICE MANAGER Gender Identity Not on file Sexual Orientation Not on file Obstetrics History Last Filed Vital Signs Vital Sign Reading Time Taken Comments Blood Pressure 142/54 06/09/2017 1:26 PM CDT Pulse 76 06/09/2017 1:26 PM CDT Temperature - - Respiratory Rate - - Oxygen Saturation 99% 03/29/2012 8:08 AM HOSPICE MANAGER Inhaled Oxygen Concentration - - Weight 110.7 kg (244 lb) 07/14/2017 1:22 PM CDT Height 172.7 cm (5' 8 ) 05/21/2012 11:14 AM CDT Body Mass Index 37.1 05/21/2012 11:14 AM CDT Plan of Treatment Not on file Insurance [facility] Care Teams Substation Operator Conversion Relationship Specialty Start Date End Date Robin Ahmadi NP [address] [place], [place] [address]Renata [facility] [place] [address] PCP - General Nurse Practitioner 06/09/17
--- OUTSIDE RECORDS SUMMARY | 2024-07-09 12:29 | XMS_ITS | Referral Summary ---
Author Organization [facility] [employer] Address [address] [place] [address] Phone Care Team Providers Care Federal Judicial Law Clerk Name Role Phone Robin Ahmadille OUTBOUND CALL CENTER REPRESENTATIVE Primary Care Provider Allergies Active Allergy Reactions [...] on file Legal Sex Female 2:16 AM ROR ENGINEER Gender Identity Not on file Sexual Orientation Not on file Last Filed Vital Signs Vital Sign Reading Time Taken Comments Blood Pressure 142/54 06/09/2017 1:26 PM CDT Pulse 76 06/09/2017 1:26 PM CDT Temperature - - Respiratory Rate - - Oxygen Saturation 99% 03/29/2012 8:08 AM ROR ENGINEER Inhaled Oxygen Concentration - - Weight 110.7 kg (244 lb) 07/14/2017 1:22 PM CDT Height 172.7 cm (5' 8 ) 05/21/2012 11:14 AM CDT Body Mass Index 37.1 05/21/2012 11:14 AM CDT Plan of Treatment Not on file Insurance [facility] Care Teams Federal Judicial Law Clerk Relationship Specialty Start Date End Date Robin Ahmadi NP [address] [place], [place] [address]Renata [facility] [address] PCP - General Nurse Practitioner 06/09/17
== END 2024-07-09 11:03 | disposition home or self-care (01) ==
LOC: ANHGOSHLAB 11:04
PROVIDERS: PCP Family Medicine; Visit Provider Student in an Organized Health Care Education/Training Program
DX: R10.9 Unspecified abdominal pain (principal); R35.0 Frequency of micturition
CPT/HCPCS: 87086; 87186

== ENCOUNTER 2024-07-25 11:23 | Outpatient (CLI) | payer MEDICARE, SELFPAY ==
--- OUTSIDE RECORDS SUMMARY | 2024-07-25 11:26 | XMS_ITS | Encounter Summary ---
Author Organization [facility] Address [address] [facility] [place] [address] Phone Care Team Providers Care Hotbed Transfer Operator Name Role Phone Benji Rhonda Seymour APRN, GREGG Unavailable Leticia David MD Unavailable Boom Ram Primary Care Provider [phone] Reason for Visit * Reason Comments Medication Refill Encounter Details Date Type Department Care Team (Late Contact Info) Description 03/23/2023 Refill [facility] - Primary Care - [place] [address] [place] [address] Boom Ram PAC [address] [place] [address] Medication Refill Social History Tobacco [...] Depression Total Score: 0 01/21/20 2:[address] MAGISTRATE documented as of this encounter Care Teams Hotbed Transfer Operator Relationship Specialty Start Date End Date Boom Ram, PAC [address] [place] [address] PCP - General Physician Maintenance Craftsman 01/20/22 Rhonda Leblanc, APPLE PICKER, TELEVISION NEWS PRODUCER Nurse Practitioner Advanced Practice Nurse 11/20/15 Leticia David MD [address] [phone] Consulting Physician Endocrinology 09/28/21 documented as of this encounter
--- OUTSIDE RECORDS SUMMARY | 2024-07-25 11:26 | XMS_ITS | Encounter Summary ---
Author Organization [facility] Address [address] [facility] [place] [address] Phone Care Team Providers Care Plant Chief Name Role Phone Benji Rhonda Seymour APRN, GREGG Unavailable Leticia David MD Unavailable Boom Ram Primary Care Provider [phone] Reason for Visit * Reason Comments Medication Refill Encounter Details Date Type Department Care Team (Late Contact Info) Description 08/23/2022 Refill [facility] - Primary Care - [place] [address] [place] [address] Boom Ram PAC [address] [place] [address] Medication Refill Social History Tobacco [...] Dept 07/20/22 Office Visit Boom Ram PAC [facility] 06/09/22 Office Visit Boom Ram [facility] 05/19/22 Office Visit Boom Ram [facility] 01/20/22 Office Visit Boom Ram [facility] Showing recent visits within past 365 [...] Provider Dept 07/20/22 Office Visit Boom Ram, [facility] 06/09/22 Office Visit Boom Ram, [facility] 05/19/22 Office Visit Boom Ram, [facility] 01/20/22 Office Visit Boom Ram, [facility] Showing recent visits within past 365 [...] Provider Dept 07/20/22 Office Visit Boom Ram [facility] 06/09/22 Office Visit Boom Ram [facility] 05/19/22 Office Visit Boom Rma [facility] 01/20/22 Office Visit Boom Ram [facility] Showing recent visits within past 365 [...] Depression Total Score: 0 01/21/20 2:00 PM LOCAL COMBINATION TRUCK DRIVER documented as of this encounter Care Teams Plant Chief Relationship Specialty Start Date End Date Boom Ram, PAC [address] [place] [address] PCP - General Physician Adult Daycare Coordinator 01/20/22 Rhonda Leblanc, QUALITY ASSURANCE COORDINATOR, CERAMIC TILE SETTER Nurse Practitioner Advanced Practice Nurse 11/20/15 Leticia David MD [address] [phone] Consulting Physician Endocrinology 09/28/21 documented as of this encounter
--- OUTSIDE RECORDS SUMMARY | 2024-07-25 11:26 | XMS_ITS | Encounter Summary ---
Author Organization [facility] Address [address] [facility] [place] [address] Phone Care Team Providers Care Armhole Feller Handstitching Machine Name Role Phone Benji Rhonda Seymour APRN, GREGG Unavailable Leticia David MD Unavailable Boom Ram Primary Care Provider Reason for Visit * Reason Comments Medication Refill Encounter Details Date Type Department Care Team (Late Contact Info) Description 10/26/2022 Refill [facility] - Primary Care - [place] [address] [place] [address] Boom Ram PAC [address] [place] [address] Medication Refill Social History Tobacco [...] Total Score: 0 01/21/20 22 2:00 PM FUNERAL ARRANGEMENT DIRECTOR documented as of this encounter Care Teams Armhole Feller Handstitching Machine Relationship Specialty Start Date End Date Boom Ram PAC [address] [place] [address] PCP - General Physician Technical Director 01/20/22 Rhonda Leblanc, THRESHER BROOMCORN, OUTREACH REPRESENTATIVE Nurse Practitioner Advanced Practice Nurse 11/20/15 Leticia David MD [address] [phone] Consulting Physician Endocrinology 09/28/21 documented as of this encounter
--- OUTSIDE RECORDS SUMMARY | 2024-07-25 11:26 | XMS_ITS | Encounter Summary ---
Author Organization [facility] Address [address] [facility] [place] [address] Phone Care Team Providers Care Bike Shop Manager Name Role Phone Benji Rhonda Seymour APRN, GREGG Unavailable Leticia David MD Unavailable Boom Ram Primary Care Provider [phone] Reason for Visit * Reason Comments Medication Refill Encounter Details Date Type Department Care Team (Late st Contact Info) Description 06/29/2022 Refill [facility] - Primary Care - [place] [address] [place] [address] Boom Ram PAC [address] [place] [address] Medication Refill Social History Tobacco [...] Depression Total Score: 0 01/21/20 2:00 PM FRAUD ANALYST documented as of this encounter Care Teams Bike Shop Manager Relationship Specialty Start Date End Date Boom Ram PAC [address] [place] [address] PCP - General Physician Label Paster 01/20/22 Rhonda Leblanc, NEEDLE MAKER, WOMEN'S APPAREL SALESPERSON Nurse Practitioner Advanced Practice Nurse 11/20/15 Leticia David MD [address] [phone] Consulting Physician Endocrinology 09/28/21 documented as of this encounter
--- OUTSIDE RECORDS SUMMARY | 2024-07-25 11:27 | XMS_ITS | Encounter Summary ---
Author Organization [facility] Address [address] [facility] [place] [address] Phone Care Team Providers Care Transportation Mechanic Name Role Phone BenjiRhonda nicholson Lion AVILA, BRIQUETTING MACHINE OPERATOR Unavailable Leticia David MD Unavailable Boom Ram [facility] Primary Care Provider Reason for Visit * Reason Comments Medication Refill Encounter Details Date Type Department Care Team (Late st Contact Info) Description 10/16/2022 Refill [facility] - Primary Care - [place] [address] [place] [address] Abel Pope MD [address] [place] [address] Medication Refill Social History Tobacco [...] Depression Total Score: 0 01/21/20 2:00 PM SQL DATA ARCHITECT documented as of this encounter Care Teams Transportation Mechanic Relationship Specialty Start Date End Date Boom Ram PAC [address] [place] [address] PCP - General Physician Laborer General 01/20/22 Rhonda Leblanc, DRIVER MATERIAL HANDLER, BRIQUETTING MACHINE OPERATOR Nurse Practitioner Advanced Practice Nurse 11/20/15 Leticia David MD [address] [phone] Consulting Physician Endocrinology 09/28/21 documented as of this encounter
--- OUTSIDE RECORDS SUMMARY | 2024-07-25 11:27 | XMS_ITS | Encounter Summary ---
Author Organization [facility] Address [address] [facility] [place] [address] Phone Care Team Providers Care Academic Support Center Director Name Role Phone Benji Rhonda Seymour APRN, GREGG Unavailable Leticia David MD Unavailable Boom Ram Primary Care Provider Reason for Visit * Reason Comments Medication Refill Encounter Details Date Type Department Care Team (Late Contact Info) Description 07/14/2023 Refill [facility] - Primary Care - [place] [address] [place] [address] Boom Ram PAC [address] [place] [address] Medication Refill Social History Tobacco [...] Dept 10/03/22 Office Visit Abel Pope MD [facility] 07/20/22 Office Visit Boom Ram PAC [facility] Showing recent visits within past 365 [...] Depression Total Score: 0 01/21/20 2:00 PM FURNACE FILLER documented as of this encounter Care Teams Academic Support Center Director Relationship Specialty Start Date End Date Boom Ram PAC [address] [place] [address] PCP - General Physician Tack Picker 01/20/22 Rhonda Leblanc, MARGARITA, TUBE MACHINE OPERATOR Nurse Practitioner Advanced Practice Nurse 11/20/15 Leticia David MD [address] [phone] Consulting Physician Endocrinology 09/28/21 documented as of this encounter
--- OUTSIDE RECORDS SUMMARY | 2024-07-25 11:27 | XMS_ITS | Clinical Summary ---
Author Organization [facility] Address [address] [place] [address] Care Team Providers Care Asphalt Paving Machine Operator Name Role Phone Martha Gray MD Primary Care Provider [phone] Source Comments [facility],non-owned Affiliates and Associated Physician Practices is amultiple site organization consisting of ambulatory clinics and hospital sitesin [place], [place], [place] and [place]. This disclosure is being madepursuant to the Care Everywhere program and may not contain all informatio navailable regarding this patient. Last updated 17.[facility] Allergies No known active allergies Medications * [...] on file Legal Sex Female 5:22 PM JAVA JSF DEVELOPER Gender Identity Not on file Sexual Orientation [...] - 26 mg/dL [facility] Creatinine 0.7 0.6 - 1.2 mg/dL [facility] Sodium 139 136 - 145 mmol/L [facility] Potassium 4.4 3.5 - 4.5 mmol/L [facility] Chloride 104 98 - 107 mmol/L [facility] CO2 25 22 - 29 mmol/L [facility] Glucose 113 70 - 115 mg/dL [facility] Calcium 9.5 8.4 - 10.2 mg/dL [facility] Anion Gap 14 8 - 18 [facility] BUN/Creatinine Ratio 14 7 - 23 [facility] Osmolality Calculated 288 270 - 300 mOsm/kg [facility] eGFR >60 >60 mL/min/1.7 3 m2 [facility] Blood specimen (specimen) BLOOD SPECIMEN / Unknown 06/14/2016 10:00 AM CDT 06/14/2016 10:57 AM CDT Leonor Wilkes Kenzieclaus GRINDER LAP-DENTAL TECHNOLOGIST LAB - CHEMISTRY O RDERABLES Final Result Performing Organization Address City/State/[facility] de Phone Number [facility] [address] [phone] from Last 3 Months or Most Recently Relevant to Health Maintenance Insurance AETNA MEDIC[place] - [place] [facility] MEDICARE MEDICAID - OUT OF STATE AETNA MEDIC[place] Member Subscriber Plan / Payer (Ef fective 2023-Present) Name:Nirali Oropeza Relation to Subscriber:Self Name:Nirali Oropeza A Payer ID:Not on file Group ID:Not on file Type:Medicaid [place] Address: [place] [id number] AETNA MEDICARE [place] Subscriber Plan / Payer (Ef fective 2023-Present) Name:Nirali Oorpeza A Relation to Subscriber:Self Name:Nirali Oropeza A Payer ID:Not on file Group ID:Not on file Type:Medicaid [place] Address: [place] [id number] [facility] MEDICARE ADV AETNA MEDICARE AD[place] [facility] MEDICARE [facility] MEDICARE [place] Care Teams Asphalt Paving Machine Operator Relationship Specialty Start Date End Date Martha Gray MD PCP - General 05/04/18
--- OUTSIDE RECORDS SUMMARY | 2024-07-25 11:27 | XMS_ITS | Encounter Summary ---
Author Organization [facility] Address [address] [facility] [place] [address] Phone Care Team Providers Care Sheet Metal Former Name Role Phone Rhonda Leblanc MARGARITA, CUTTING AND BONING SUPERVISOR Unavailable Dilan Moon MD Primary Care Provider Leticia David MD Unavailable Boom Ram Primary Care Provider Reason for Visit * Reason Comments Medication Refill Encounter Details Date Type Department Care Team (Late st Contact Info) Description 08/05/2020 [facility]ill [facility] Oncology Services [address] [place] [address] Lorenzo Naylor MD [address] [place] [address] Medication Refill Social History Tobacco [...] documented as of this encounter Care Teams Sheet Metal Former Relationship Specialty Start Date End Date Dilan Moon MD PCP - General Sports Medicine 08/08/19 01/19/22 Boom Ram, PAC [address] [place] [address] PCP - General Physician Mortar Worker 01/20/22 Rhonda Leblanc, AGRISCIENCE TEACHER, CUTTING AND BONING SUPERVISOR Nurse Practitioner Advanced Practice Nurse 11/20/15 Leticia David MD [address] [phone] Consulting Physician Endocrinology 09/28/21 documented as of this encounter
--- OUTSIDE RECORDS SUMMARY | 2024-07-25 11:27 | XMS_ITS | Encounter Summary ---
Author Organization [facility] Address [address] [facility] [place] [address] Phone Care Team Providers Care Powderman Name Role Phone Benji Rhonda Seymour APRN, GREGG Unavailable Leticia David MD Unavailable Boom Ram Primary Care Provider Reason for Visit * Reason Comments Medication Refill Encounter Details Date Type Department Care Team (Late Contact Info) Description 07/20/2023 Refill [facility] - Primary Care - [place] [address] [place] [address] Boom Ram PAC [address] [place] [address] Medication Refill Social History Tobacco [...] Depression Total Score: 0 01/21/20 2:00 PM TECHNICAL ADMINISTRATIVE ASSISTANT documented as of this encounter Care Teams Powderman Relationship Specialty Start Date End Date Boom Ram PAC [address] [place] [address] PCP - General Physician Electrical Engineering Intern 01/20/22 Rhonda Leblanc, PRODUCE RUNNER, RESEARCH PHYSICIAN Nurse Practitioner Advanced Practice Nurse 11/20/15 Leticia David MD [address] [address] Consulting Physician Endocrinology 09/28/21 documented as of this encounter
--- OUTSIDE RECORDS SUMMARY | 2024-07-25 11:27 | XMS_ITS | Encounter Summary ---
Author Organization [facility] Address [address] [facility] [place] [address] Phone Care Team Providers Care Smoke And Flame Specialist Name Role Phone Rhonda Leblanc MARGARITA, GENETICS NURSE Unavailable Dilan Moon MD Primary Care Provider [phone] Leticia David MD Unavailable Boom Ram Primary Care Provider Reason for Visit * Reason Comments Medication Refill Encounter Details Date Type Department Care Team (Late st Contact Info) Description 02/20/2020 Refill [facility] Oncology Services [address] [place] [address] Lorenzo Naylor MD [address] [place] [address] Medication Refill Social History [...] COVID-19? No / Unsure 02/10/2020 11:38 AM TRANSIT MIXER OPERATOR documented as of this encounter Miscellaneous Notes * Telephone Encounter - Dixie Cronin RN - 02/24/2020 10:24 AM TRANSIT MIXER OPERATOR Refilled Ferrous Sulfate SIT MIXER OPERATOR documented in this encounter Plan of Treatment Not on file documented as of this encounter Visit Diagnoses Diagnosis Iron deficiency anemia, unspecified iron deficiency anemia type documented in this encounter Additional Health Concerns Assessment Noted Time PHQ-9 Depression Total Score: 0 09/17/19 17 1:00 PM CDT documented as of this encounter Care Teams Smoke And Flame Specialist Relationship Specialty Start Date End Date Dilan Moon MD PCP - General Sports Medicine 08/08/19 01/19/22 Boom Ram, PAC [address] [place] [address] PCP - General Physician Industrial Health Engineer 01/20/22 Rhonda Leblanc, EDUCATIONAL INSTITUTION PRESIDENT, GENETICS NURSE Nurse Practitioner Advanced Practice Nurse 11/20/15 Leticia David MD [address] [phone] Consulting Physician Endocrinology 09/28/21 documented as of this encounter
--- OUTSIDE RECORDS SUMMARY | 2024-07-25 11:27 | XMS_ITS | Clinical Summary ---
Author Organization [facility] Address [address] [place], [address] [address] Phone Care Team Providers Care Apartment Community Assistant Manager Name Role Phone Rhonda Leblanc APRN, GREGG [...] Lnp-s, Pf, 3 0 Mcg/0.3 Ml Dose (Leftronic) 06/29/2020,06/08/2020 Influenza Vaccine 02/26/2013, 2,11/22/2010,2009,12/29/2008,01/29/2008,01/11/2007 Influenza Vaccine [...] CAD W AWILDA Routine 03/11/2022 3:35 PM COUNTY JUDGE Encounter for screening mammogram for malignant neoplasm of breast PATHOLOGY CYTOLOGY ELECTROTYPE SERVICER Routine 10/04/2016 4:18 PM CDT Well woman exam with routine gynecological exam HM COLONOSCOPY Routine 12/29/2014 from Last 3 Months or Most Recently Relevant to Health Maintenance Results * PILAR SCREENING BILATERAL DIGITAL W CAD W AWILDA (03/11/2022 3:35 PM COUNTY JUDGE) Anatomical Region Laterality Modality breast Bilateral Mammography 03/11/2022 2:58 PM COUNTY JUDGE Narrative 03/15/2022 8:16 AM COUNTY JUDGE - PILAR SCREENING BILATERAL DIGITAL W CAD [...] to exams dated: 10/09/2019, 09/04/2017, and 10/04/2016 [facility]. BREAST TISSUE:The tissue of both breasts [...] exam. Electronically signed by: Cory quinonez/diana:03/11/2022 18:49:58 Pug Mill Operator(s): RT Jeyson(R)(M), [facility] letter sent: Normal Exam Reading location: [facility] BI-RADS: 1 Negative Procedure Note [...] to exams dated: 10/09/2019, 09/04/2017, and 10/04/2016 [facility]. BREAST TISSUE:The tissue of both breasts [...] exam. Electronically signed by: Cory quinonez/diana:03/11/2022 18:49:58 Pug Mill Operator(s): Marie Arroyo RT(R)(M), [facility] letter sent: Normal Exam Reading location: [facility] BI-RADS: 1 Negative us Boom Ram PAC IMG MAMMO ORDERABLES Final R esult * PATHOLOGY CYTOLOGY ELECTROTYPE SERVICER (10/04/2016 4:18 PM CDT) SPECIMEN ADEQUACY Satisfactory for evaluation, squamous cells only. History of hysterectomy noted 10/07/2016 1:40 PM CDT [facility] DESCRIPTIVE DIAGNOSIS Negative for intraepithelial lesions. No dysplastic cells present. 10/07/2016 1:40 PM CDT [facility] at 1340 CDT AUTOMATED EXAMINATION Analysis of this sample has been assisted by an automated imaging and review system ([employer] [employer] [facility] System, [place], [facility] [place]). This case is further evaluated and finalized by a manufacturing director and/or pathologist. 10/07/2016 1:40 PM CDT [facility] DISCLAIMER The PAP smear is a [...] unless clinically indicated. 10/07/2016 1:40 PM CDT [facility] Case Report Gynecologic Cytology Report Case: [id number] Authorizing Provider: Harvey Roger MD Collected: 10/04/2016 04:18 PM Ordering Location: [facility] MEDICAL Received: 10/04/2016 04:18 PM GROUP - OBSTETRICS AND GYNECOLOGY - [place] First Screen: Lian Bettencourt Specimen: Cervical/Endocervic al, liquid based thin layer preparation (Thin Prep ), CERVIX/ENDOCERVIX 10/07/2016 1:40 PM CDT [facility] HPV Reflex if ASCUS? No 10/07/2016 1:40 PM CDT [facility] Specimen of unknown material (specimen) CERVIX UTERI STRUCTURE / Unknown 10/04/2016 4:18 PM CDT 10/04/2016 4:18 PM CDT Harvey Roger MD PATHOLOGY/CYTOLOGY ORDERABL ES Final Result Performing Organization Address [facility] de Phone Number [facility] [address] [place] [address], * COLONOSCOPY (12/29/2014) Nora Haywood MD PROCEDURE/MINOR SURGICA L ORDERABLES Final Result from Last 3 Months or Most Recently Relevant to Health Maintenance Insurance [place]ICAID [place] MEDICARE C AETNA MEDICARE C [employer] on file Care Teams Apartment Community Assistant Manager Relationship Specialty Start Date End Date Boom Ram PAC [address] [place] [phone] PCP - General Physician Personal Computer Specialist 01/20/22 Rhonda Leblanc, MORPHOLOGIST, RUSSET REPAIRER Nurse Practitioner Advanced Practice Nurse 11/20/15 Leticia David MD [address] [address] Consulting Physician Endocrinology 09/28/21
--- OUTSIDE RECORDS SUMMARY | 2024-07-25 11:27 | XMS_ITS | Clinical Summary ---
Author Organization [facility] 1 [facility] Address [address] [place] [address] Phone Care Team Providers Care Aircraft Restorer Name Role Phone Robin Ahmadille CLOSING MACHINE OPERATOR Primary Care Provider Allergies Active Allergy Reactions [...] on file Legal Sex Female 2:16 AM FIELD TECH Gender Identity Not on file Sexual Orientation Not on file Obstetrics History Last Filed Vital Signs Vital Sign Reading Time Taken Comments Blood Pressure 142/54 06/09/2017 1:26 PM CDT Pulse 76 06/09/2017 1:26 PM CDT Temperature - - Respiratory Rate - - Oxygen Saturation 99% 03/29/2012 8:08 AM FIELD TECH Inhaled Oxygen Concentration - - Weight 110.7 kg (244 lb) 07/14/2017 1:22 PM CDT Height 172.7 cm (5' 8 ) 05/21/2012 11:14 AM CDT Body Mass Index 37.1 05/21/2012 11:14 AM CDT Plan of Treatment Not on file Insurance [facility] Care Teams Aircraft Restorer Relationship Specialty Start Date End Date Robin Ahmadi NP [address] [place], [place] [address]Renata [facility] [place] [address] PCP - General Nurse Practitioner 06/09/17
--- OUTSIDE RECORDS SUMMARY | 2024-07-25 11:27 | XMS_ITS | Referral Summary ---
Author Organization [facility] 1 [employer] Address [address] [place] [address] Phone Care Team Providers Care Applied Psychology Professor Name Role Phone Robin Ahmadille GRADES 1 THROUGH 5 TEACHER Primary Care Provider Allergies Active Allergy Reactions [...] on file Legal Sex Female 2:16 AM WHEAT FARMER Gender Identity Not on file Sexual Orientation Not on file Last Filed Vital Signs Vital Sign Reading Time Taken Comments Blood Pressure 142/54 06/09/2017 1:26 PM CDT Pulse 76 06/09/2017 1:26 PM CDT Temperature - - Respiratory Rate - - Oxygen Saturation 99% 03/29/2012 8:08 AM WHEAT FARMER Inhaled Oxygen Concentration - - Weight 110.7 kg (244 lb) 07/14/2017 1:22 PM CDT Height 172.7 cm (5' 8 ) 05/21/2012 11:14 AM CDT Body Mass Index 37.1 05/21/2012 11:14 AM CDT Plan of Treatment Not on file Insurance [facility] Care Teams Applied Psychology Professor Relationship Specialty Start Date End Date Robin Ahmadi NP [address] [place], [place] [address]Renata [facility] [place] [address] PCP - General Nurse Practitioner 06/09/17
[2024-07-25 22:31] LABS: Hemoglobin A1C 5.1 % (<5.7)
== END 2024-07-25 11:24 | disposition home or self-care (01) ==
LOC: ANHGOSHLAB 11:25
PROVIDERS: PCP Family Medicine; Visit Provider Student in an Organized Health Care Education/Training Program
DX: E03.9 Hypothyroidism, unspecified (principal); R73.9 Hyperglycemia, unspecified
CPT/HCPCS: 36415; 83036; 84443

== ENCOUNTER 2024-07-31 15:50 | Outpatient (NON) | payer MEDICARE, SELFPAY ==
--- OUTSIDE RECORDS SUMMARY | 2024-07-31 15:54 | XMS_ITS | Encounter Summary ---
Author Organization [facility] Address [address] [facility] [place] [address] Phone Care Team Providers Care Residency Coordinator Name Role Phone Benji Rhonda Seymour APRN, GREGG Unavailable Leticia David MD Unavailable Boom Ram Primary Care Provider Reason for Visit * Reason Comments Medication Refill Encounter Details Date Type Department Care Team (Late Contact Info) Description 10/26/2022 Refill [facility] - Primary Care - [place] [address] [place] [address] Boom Ram PAC [address] [place] [address] Medication Refill Social History Tobacco [...] Total Score: 0 01/21/20 22 2:00 PM HEEL ROOM SUPERVISOR documented as of this encounter Care Teams Residency Coordinator Relationship Specialty Start Date End Date Boom Ram PAC [address] [place] [address] PCP - General Physician Wood Type Cutter 01/20/22 Rhonda Leblanc, WAREHOUSE DISTRIBUTION SPECIALIST, PROGRAM SERVICES PLANNER Nurse Practitioner Advanced Practice Nurse 11/20/15 Leticia David MD [address] [phone] Consulting Physician Endocrinology 09/28/21 documented as of this encounter
--- OUTSIDE RECORDS SUMMARY | 2024-07-31 15:54 | XMS_ITS | Referral Summary ---
Author Organization [facility] 1 [employer] Address [address] [place] [address] Phone Care Team Providers Care Supervisor Glycerin Name Role Phone Robin Ahmadille ONCOLOGY TRANSPLANT NETWORK MANAGER Primary Care Provider Allergies Active Allergy Reactions [...] on file Legal Sex Female 2:16 AM CANOPY INSPECTOR Gender Identity Not on file Sexual Orientation Not on file Last Filed Vital Signs Vital Sign Reading Time Taken Comments Blood Pressure 142/54 06/09/2017 1:26 PM CDT Pulse 76 06/09/2017 1:26 PM CDT Temperature - - Respiratory Rate - - Oxygen Saturation 99% 03/29/2012 8:08 AM CANOPY INSPECTOR Inhaled Oxygen Concentration - - Weight 110.7 kg (244 lb) 07/14/2017 1:22 PM CDT Height 172.7 cm (5' 8 ) 05/21/2012 11:14 AM CDT Body Mass Index 37.1 05/21/2012 11:14 AM CDT Plan of Treatment Not on file Insurance [facility] Care Teams Supervisor Glycerin Relationship Specialty Start Date End Date Robin Ahmadi NP [address] [place], [place] [address]Renata [place] [address] PCP - General Nurse Practitioner 06/09/17
--- OUTSIDE RECORDS SUMMARY | 2024-07-31 15:54 | XMS_ITS | Encounter Summary ---
Author Organization [facility] Address [address] [facility] [place] [address] Phone Care Team Providers Care Ruby On Rails Consultant Name Role Phone Benji Rhonda Seymour APRN, GREGG Unavailable Leticia David MD Unavailable Boom Ram Primary Care Provider [phone] Reason for Visit * Reason Comments Medication Refill Encounter Details Date Type Department Care Team (Late st Contact Info) Description 06/29/2022 Refill [facility] - Primary Care - [place] [address] [place] [address] Boom Ram PAC [address] [place] [address] Medication Refill Social History Tobacco [...] Depression Total Score: 0 01/21/20 2:00 PM OVERHEAD CRANE OPERATOR documented as of this encounter Care Teams Ruby On Rails Consultant Relationship Specialty Start Date End Date Boom Ram PAC [address] [place] [address] PCP - General Physician Yarn Examiner 01/20/22 Rhonda Leblanc, DATA ENTRY PROCESSOR, PRODUCTION GEAR CUTTER Nurse Practitioner Advanced Practice Nurse 11/20/15 Leticia David MD [address] [phone] Consulting Physician Endocrinology 09/28/21 documented as of this encounter
--- OUTSIDE RECORDS SUMMARY | 2024-07-31 15:54 | XMS_ITS | Clinical Summary ---
Author Organization [facility] 1 [employer] Address [address] [place] [address] Phone Care Team Providers Care Strapper Operator Name Role Phone Robin Ahmadille GROCERY PACKER Primary Care Provider Allergies Active Allergy Reactions [...] on file Legal Sex Female 2:16 AM CHOCOLATE TEMPERER Gender Identity Not on file Sexual Orientation Not on file Obstetrics History Last Filed Vital Signs Vital Sign Reading Time Taken Comments Blood Pressure 142/54 06/09/2017 1:26 PM CDT Pulse 76 06/09/2017 1:26 PM CDT Temperature - - Respiratory Rate - - Oxygen Saturation 99% 03/29/2012 8:08 AM CHOCOLATE TEMPERER Inhaled Oxygen Concentration - - Weight 110.7 kg (244 lb) 07/14/2017 1:22 PM CDT Height 172.7 cm (5' 8 ) 05/21/2012 11:14 AM CDT Body Mass Index 37.1 05/21/2012 11:14 AM CDT Plan of Treatment Not on file Insurance [facility] Care Teams Strapper Operator Relationship Specialty Start Date End Date Robin Ahmadi NP [address] [place], [place] [address]Renata [facility] [place] [address] PCP - General Nurse Practitioner 06/09/17
--- OUTSIDE RECORDS SUMMARY | 2024-07-31 15:54 | XMS_ITS | Clinical Summary ---
Author Organization [facility] Address [address] [place] [address] Care Team Providers Care Dough Mixer Operator Name Role Phone Martha Gray MD Primary Care Provider [phone] Source Comments [facility],non-owned Affiliates and Associated Physician Practices is amultiple site organization consisting of ambulatory clinics and hospital sitesin [place], [place], [place] and [place]. This disclosure is being madepursuant to the Care Everywhere program and may not contain all informatio navailable regarding this patient. Last updated 17.[facility] Allergies No known active allergies Medications * [...] on file Legal Sex Female 5:22 PM PROTECTION CHIEF INDUSTRIAL PLANT Gender Identity Not on file Sexual Orientation [...] CDT) BUN 10 7 - 26 mg/dL [facility] Creatinine 0.7 0.6 - 1.2 mg/dL [facility] Sodium 139 136 - 145 mmol/L [facility] Potassium 4.4 3.5 - 4.5 mmol/L [facility] Chloride 104 98 - 107 mmol/L [facility] CO2 25 22 - 29 mmol/L [facility] Glucose 113 70 - 115 mg/dL [facility] Calcium 9.5 8.4 - 10.2 mg/dL [facility] Anion Gap 14 8 - 18 [facility] BUN/Creatinine Ratio 14 7 - 23 [facility] Osmolality Calculated 288 270 - 300 mOsm/kg [facility] eGFR >60 >60 mL/min/1.7 3 m2 [facility] Blood specimen (specimen) BLOOD SPECIMEN / Unknown 06/14/2016 10:00 AM CDT 06/14/2016 10:57 AM CDT Leonor Wilkes Kenzieclaus HEAT TREAT PULLER-HOTSHOT SUPERINTENDENT LAB - CHEMISTRY O RDERABLES Final Result Performing Organization Address City/State/[facility] de Phone Number [facility] [address] [phone] from Last 3 Months or Most Recently Relevant to Health Maintenance Insurance AETNA MEDICARE [place] [facility] MEDICARE MEDICAID - OUT OF STATE AETNA MEDICARE [place] Member Subscriber Plan / Payer (Ef fective 2023-Present) Name:Nirali Oropeza Relation to Subscriber:Self Name:Nirali Oropeza A Payer ID:Not on file Group ID:Not on file Type:Medicaid [place] Address: [place] [id number] AETNA MEDICARE [place] Subscriber Plan / Payer (Ef fective 2023-Present) Name:Nirali Oropeza A Relation to Subscriber:Self Name:Nirali Oropeza A Payer ID:Not on file Group ID:Not on file Type:Medicaid [place] Address: [place] [id number] [facility] MEDICARE ADV AETNA MEDICARE ADV [place]ID [place] [facility] MEDICARE [facility] MEDICARE [place] Care Teams Dough Mixer Operator Relationship Specialty Start Date End Date Martha Gray MD PCP - General 05/04/18
--- OUTSIDE RECORDS SUMMARY | 2024-07-31 15:54 | XMS_ITS | Encounter Summary ---
Author Organization [facility] Address [address] [facility] [place] [address] Phone Care Team Providers Care Personal Financial Planner Name Role Phone Rhonda Leblanc MARGARITA, DRUM CLEANER Unavailable Dilan Moon MD Primary Care Provider Leticia David MD Unavailable Boom Ram Primary Care Provider Reason for Visit * Reason Comments Medication Refill Encounter Details Date Type Department Care Team (Late st Contact Info) Description 08/05/2020 [facility]ill [facility] Oncology Services [address] [place] [address] Lorenzo Naylor MD [address] [place] [address] Medication Refill Social History Tobacco [...] documented as of this encounter Care Teams Personal Financial Planner Relationship Specialty Start Date End Date Dilan Moon MD PCP - General Sports Medicine 08/08/19 01/19/22 Boom Ram, PAC [address] [place] [address] PCP - General Physician Welder 2Nd Shift 01/20/22 Rhonda Leblanc, CARBONIZER, DRUM CLEANER Nurse Practitioner Advanced Practice Nurse 11/20/15 Leticia David MD [address] [phone] Consulting Physician Endocrinology 09/28/21 documented as of this encounter
--- OUTSIDE RECORDS SUMMARY | 2024-07-31 15:54 | XMS_ITS | Encounter Summary ---
Author Organization [facility] Address [address] [facility] [place] [address] Phone Care Team Providers Care Box Worker Name Role Phone BenjiRhonda nicholson Lion AVILA, DATA WAREHOUSE ANALYST Unavailable Leticia David MD Unavailable Boom Ram [facility] Primary Care Provider Reason for Visit * Reason Comments Medication Refill Encounter Details Date Type Department Care Team (Late st Contact Info) Description 10/16/2022 Refill [facility] - Primary Care - [place] [address] [place] [address] Abel Pope MD [address] [place] [address] Medication Refill Social History Tobacco [...] Depression Total Score: 0 01/21/20 2:00 PM HIDES INSPECTOR documented as of this encounter Care Teams Box Worker Relationship Specialty Start Date End Date Boom Ram PAC [address] [place] [address] PCP - General Physician Supervisor Public Health Nursing 01/20/22 Rhonda Leblanc, DIRECTOR SALES TRAINING, DATA WAREHOUSE ANALYST Nurse Practitioner Advanced Practice Nurse 11/20/15 Leticia David MD [address] [phone] Consulting Physician Endocrinology 09/28/21 documented as of this encounter
--- OUTSIDE RECORDS SUMMARY | 2024-07-31 15:54 | XMS_ITS | Encounter Summary ---
Author Organization [facility] Address [address] [place] [address] Phone Care Team Providers Care Inorganic Chemistry Teacher Name Role Phone Benji Rhonda Seymour APRN, GREGG Unavailable Leticia David MD Unavailable Boom Ram Primary Care Provider [phone] Reason for Visit * Reason Comments Medication Refill Encounter Details Date Type Department Care Team (Late Contact Info) Description 07/20/2023 Refill [facility] - Primary Care - [place] [address] [place] [address] Boom Ram PAC [address] [place] [address] Medication Refill Social History Tobacco [...] Depression Total Score: 0 01/21/20 2:00 PM DENTAL FINANCIAL COORDINATOR documented as of this encounter Care Teams Inorganic Chemistry Teacher Relationship Specialty Start Date End Date Boom Ram PAC [address] [place] [place] [address] PCP - General Physician Medical Services Manager 01/20/22 Rhonda Leblanc, GEAR MACHINE OPERATOR, CORRECTIONAL COUNSELOR/CASE MANAGER Nurse Practitioner Advanced Practice Nurse 11/20/15 Leticia David MD [address] [address] Consulting Physician Endocrinology 09/28/21 documented as of this encounter
--- OUTSIDE RECORDS SUMMARY | 2024-07-31 15:54 | XMS_ITS | Encounter Summary ---
Author Organization [facility] Address [address] [facility] [place] [place] [address] Phone Care Team Providers Care Personal Caregiver Name Role Phone Benji Rhonda Seymour APRN, GREGG Unavailable Leticia David MD Unavailable Boom Ram Primary Care Provider Reason for Visit * Reason Comments Medication Refill Encounter Details Date Type Department Care Team (Late Contact Info) Description 08/23/2022 Refill [facility] - Primary Care - [place] [address] [place] [address] Boom Ram PAC [address] [place] [address] Medication Refill Social History Tobacco [...] Dept 07/20/22 Office Visit Boom Ram PAC [facility] 06/09/22 Office Visit Boom Ram [facility] 05/19/22 Office Visit Boom Ram [facility] 01/20/22 Office Visit Boom Ram [facility] Showing recent visits within past 365 [...] Provider Dept 07/20/22 Office Visit Boom Ram, [facility] 06/09/22 Office Visit Boom Ram, [facility] 05/19/22 Office Visit Boom Ram, [facility] 01/20/22 Office Visit Boom Ram, [facility] Showing recent visits within past 365 [...] Provider Dept 07/20/22 Office Visit Boom Ram [facility] 06/09/22 Office Visit Boom Ram [facility] 05/19/22 Office Visit Boom Ram [facility] 01/20/22 Office Visit Boom Ram [place] [...] Depression Total Score: 0 01/21/20 2:00 PM PHYSICAL PLANT EMPLOYEE documented as of this encounter Care Teams Personal Caregiver Relationship Specialty Start Date End Date Boom Ram, PAC [address] [place] [address] PCP - General Physician Surveying Or Spatial Science Technician 01/20/22 Rhonda Leblanc, CUSTOMER SOLUTIONS TEAMMATE, TOBACCO PRIZER Nurse Practitioner Advanced Practice Nurse 11/20/15 Leticia David MD [address] [phone] Consulting Physician Endocrinology 09/28/21 documented as of this encounter
--- OUTSIDE RECORDS SUMMARY | 2024-07-31 15:54 | XMS_ITS | Encounter Summary ---
Author Organization [facility] Address [address] [place] [address] [place] [address] Phone Care Team Providers Care Jukebox Coin Collector Name Role Phone Rhonda Leblanc MARGARITA, FINISHING FRAME RUNNER Unavailable Dilan Moon MD Primary Care Provider Leticia David MD Unavailable Boom Ram Primary Care Provider [phone] Reason for Visit * Reason Comments Medication Refill Encounter Details Date Type Department Care Team (Late st Contact Info) Description 02/20/2020 Refill [facility] Oncology Services [address] [place] [address] Lorenzo Naylor MD [address] [place] [address] Medication Refill Social History Tobacco [...] COVID-19? No / Unsure 02/10/2020 11:38 AM SCANNING TECH documented as of this encounter Miscellaneous Notes * Telephone Encounter - Dixie Cronin RN - 02/24/2020 10:24 AM SCANNING TECH Refilled Ferrous Sulfate NING TECH documented in this encounter Plan of Treatment Not on file documented as of this encounter Visit Diagnoses Diagnosis Iron deficiency anemia, unspecified iron deficiency anemia type documented in this encounter Additional Health Concerns Assessment Noted Time PHQ-9 Depression Total Score: 0 09/17/19 17 1:00 PM CDT documented as of this encounter Care Teams Jukebox Coin Collector Relationship Specialty Start Date End Date Dilan Moon MD PCP - General Sports Medicine 08/08/19 01/19/22 Boom Ram, PAC [address] [place] [address] PCP - General Physician Hands Assembler 01/20/22 Rhonda Leblanc, COMPLAINT SUPERVISOR, FINISHING FRAME RUNNER Nurse Practitioner Advanced Practice Nurse 11/20/15 Leticia David MD [address] [phone] Consulting Physician Endocrinology 09/28/21 documented as of this encounter
--- OUTSIDE RECORDS SUMMARY | 2024-07-31 15:54 | XMS_ITS | Encounter Summary ---
Author Organization [facility] Address [address] [facility] [place] [address] Phone Care Team Providers Care Contour Sander Name Role Phone Benji Rhonda Seymour APRN, GREGG Unavailable Leticia David MD Unavailable Boom Ram Primary Care Provider Reason for Visit * Reason Comments Medication Refill Encounter Details Date Type Department Care Team (Late Contact Info) Description 07/14/2023 Refill [facility] - Primary Care - [place] [address] [place] [address] Boom Ram PAC [address] [place] [address] Medication Refill Social History Tobacco [...] Dept 10/03/22 Office Visit Abel Pope MD [facility] 07/20/22 Office Visit Boom Ram PAC [facility] Showing recent visits within past [...] Depression Total Score: 0 01/21/20 2:00 PM EVENT STAFF MEMBER documented as of this encounter Care Teams Contour Sander Relationship Specialty Start Date End Date Boom Ram PAC [address] [place] [address] PCP - General Physician Training Coordinator 01/20/22 Rhonda Leblanc, MARGARITA, PAN SHOVER Nurse Practitioner Advanced Practice Nurse 11/20/15 Leticia David MD [address] [phone] Consulting Physician Endocrinology 09/28/21 documented as of this encounter
--- OUTSIDE RECORDS SUMMARY | 2024-07-31 15:54 | XMS_ITS | Clinical Summary ---
Author Organization [facility] Address [address] [facility], [address] [address] Phone Care Team Providers Care Mash Tub Cooker Name Role Phone Rhonda Leblanc APRN, GREGG [...] Lnp-s, Pf, 3 0 Mcg/0.3 Ml Dose ([employer]) 06/29/2020,06/08/2020 Influenza Vaccine 02/26/2013, 2,11/22/2010,2009,12/29/2008,01/29/2008,01/11/2007 Influenza Vaccine [...] CAD W AWILDA Routine 03/11/2022 3:35 PM SKIP OPERATOR Encounter for screening mammogram for malignant neoplasm of breast PATHOLOGY CYTOLOGY BROKE BEATER Routine 10/04/2016 4:18 PM CDT Well woman exam with routine gynecological exam HM COLONOSCOPY Routine 12/29/2014 from Last 3 Months or Most Recently Relevant to Health Maintenance Results * PILAR SCREENING BILATERAL DIGITAL W CAD W AWILDA (03/11/2022 3:35 PM SKIP OPERATOR) Anatomical Region Laterality Modality breast Bilateral Mammography 03/11/2022 2:58 PM SKIP OPERATOR Narrative 03/15/2022 8:16 AM SKIP OPERATOR - PILAR SCREENING BILATERAL DIGITAL W CAD [...] to exams dated: 10/09/2019, 09/04/2017, and 10/04/2016 [facility]. BREAST TISSUE:The tissue of [...] exam. Electronically signed by: Cory quinonez/diana:03/11/2022 18:49:58 Housekeeper Head(s): RT Jeyson(R)(M), [facility] letter sent: Normal Exam Reading location: [facility] BI-RADS: 1 Negative Procedure Note Cory [...] to exams dated: 10/09/2019, 09/04/2017, and 10/04/2016 [facility]. BREAST TISSUE:The tissue of [...] exam. Electronically signed by: Cory quinonez/diana:03/11/2022 18:49:58 Housekeeper Head(s): Marie Arroyo RT(R)(M), [facility] letter sent: Normal Exam Reading location: [facility] BI-RADS: 1 Negative us Boom Ram PAC IMG MAMMO ORDERABLES Final R esult * PATHOLOGY CYTOLOGY BROKE BEATER (10/04/2016 4:18 PM CDT) SPECIMEN ADEQUACY Satisfactory for evaluation, squamous cells only. History of hysterectomy noted 10/07/2016 1:40 PM CDT [facility] DESCRIPTIVE DIAGNOSIS Negative for intraepithelial lesions. No dysplastic cells present. 10/07/2016 1:40 PM CDT [facility] at 1340 CDT AUTOMATED EXAMINATION Analysis of this sample has been assisted by an automated imaging and review system (Achieve3000prep Imaging System, [employer], [facility], [place]). This case is further evaluated and finalized by a entry level accounting clerk and/or pathologist. 10/07/2016 1:40 PM CDT [facility] DISCLAIMER The PAP smear is a [...] unless clinically indicated. 10/07/2016 1:40 PM CDT [facility] Case Report Gynecologic Cytology Report Case: [id number] Authorizing Provider: Harvey Roger MD Collected: 10/04/2016 04:18 PM Ordering Location: [facility] Received: 10/04/2016 04:18 PM GROUP - OBSTETRICS AND GYNECOLOGY - [place] First Screen: Lian Bettencourt Specimen: Cervical/Endocervic al, liquid based thin layer preparation (Thin Prep ), CERVIX/ENDOCERVIX 10/07/2016 1:40 PM CDT [facility] HPV Reflex if ASCUS? No 10/07/2016 1:40 PM CDT [facility] Specimen of unknown material (specimen) CERVIX UTERI STRUCTURE / Unknown 10/04/2016 4:18 PM CDT 10/04/2016 4:18 PM CDT Harvey Roger MD PATHOLOGY/CYTOLOGY ORDERABL ES Final Result Performing Organization Address [facility] de Phone Number [facility] [address] [place] [address], * COLONOSCOPY (12/29/2014) Nora Haywood MD PROCEDURE/MINOR SURGICA L ORDERABLES Final Result from Last 3 Months or Most Recently Relevant to Health Maintenance Insurance MEDICAID [place] MEDICARE C AETNA MEDICARE C [employer] on file Care Teams Mash Tub Cooker Relationship Specialty Start Date End Date Boom Ram PAC [address] [place] [phone] PCP - General Physician Ingredient Mixer 01/20/22 Rhonda Leblanc, TRANSMISSION REBUILDER, HAND FOLDER Nurse Practitioner Advanced Practice Nurse 11/20/15 Leticia David MD [address] [address] Consulting Physician Endocrinology 09/28/21
--- OUTSIDE RECORDS SUMMARY | 2024-07-31 15:54 | XMS_ITS | Encounter Summary ---
Author Organization [facility] Address [address] [facility] [place] [address] Phone Care Team Providers Care Wool Shearer Name Role Phone Benji Rhonda Seymour APRN, GREGG Unavailable Leticia David MD Unavailable Boom Ram Primary Care Provider Reason for Visit * Reason Comments Medication Refill Encounter Details Date Type Department Care Team (Late Contact Info) Description 03/23/2023 Refill [facility] - Primary Care - [place] [address] [place] [address] Boom Ram PAC [address] [place] [address] Medication Refill Social History Tobacco [...] Depression Total Score: 0 01/21/20 2:00 PM RECREATIONAL THERAPY TECHNICIAN documented as of this encounter Care Teams Wool Shearer Relationship Specialty Start Date End Date Boom Ram, PAC [address] [place] [address] PCP - General Physician Radiation Control Specialist 01/20/22 Rhonda Leblanc, ELECTION JUDGE, TOURIST HOME KEEPER Nurse Practitioner Advanced Practice Nurse 11/20/15 Leticia David MD [address] [phone] Consulting Physician Endocrinology 09/28/21 documented as of this encounter
== END 2024-07-31 15:51 | disposition home or self-care (01) ==
LOC: ANHGOSHLAB 15:52
PROVIDERS: PCP Family Medicine; Visit Provider Family Medicine
DX: R30.0 Dysuria (principal)
CPT/HCPCS: 87077; 87086; 87186

== ENCOUNTER 2024-08-27 15:22 | Outpatient (NON) | payer MEDICARE, SELFPAY ==
--- OUTSIDE RECORDS SUMMARY | 2024-08-27 16:17 | XMS_ITS | Clinical Summary ---
Author Organization [facility] [employer] Address [address] [place] [address] Phone Care Team Providers Care Copy Chaser Name Role Phone Robin Ahmadille CST Primary Care Provider Allergies Active Allergy Reactions [...] on file Legal Sex Female 2:16 AM TELEPHONE SUPERVISOR Gender Identity Not on file Sexual Orientation Not on file Obstetrics History Last Filed Vital Signs Vital Sign Reading Time Taken Comments Blood Pressure 142/54 06/09/2017 1:26 PM CDT Pulse 76 06/09/2017 1:26 PM CDT Temperature - - Respiratory Rate - - Oxygen Saturation 99% 03/29/2012 8:08 AM TELEPHONE SUPERVISOR Inhaled Oxygen Concentration - - Weight 110.7 kg (244 lb) 07/14/2017 1:22 PM CDT Height 172.7 cm (5' 8) 05/21/2012 11:14 AM CDT Body Mass Index 37.1 05/21/2012 11:14 AM CDT Plan of Treatment Not on file Insurance [facility] Care Teams Copy Chaser Relationship Specialty Start Date End Date Robin Ahmadi NP [address] [place], [place] [address] [facility] [place] [address] PCP - General Nurse Practitioner 06/09/17
--- OUTSIDE RECORDS SUMMARY | 2024-08-27 16:17 | XMS_ITS | Clinical Summary ---
Author Organization [facility] Address [address] [place] [address] Care Team Providers Care Tappet Adjuster Name Role Phone Martha Gray MD Primary Care Provider [phone] Source Comments [facility],non-owned Affiliates and Associated Physician Practices is amultiple site organization consisting of ambulatory clinics and hospital sitesin [place], [place], [place] and [place]. This disclosure is being madepursuant to the Care Everywhere program and may not contain all informatio navailable regarding this patient. Last updated 17.[facility] Allergies No known active allergies Medications * [...] on file Legal Sex Female 5:22 PM SALES REPRESENTATIVE CONSULTANT Gender Identity Not on file Sexual Orientation [...] 9:57 AM CDT Height 170.2 cm (5' 7) 06/21/2018 9:57 AM CDT Body Mass Index [...] - COLON CA SCREENING 1960 MAMMOGRAM 1960 HIV SCREENING 1975 HEPATITIS C SCREENING 02/27/1978 DTAP/TDAP/TD VACCINES (1 - Tdap) 1979 PAP SMEAR 1981 PNEUMOCOCCAL VACCINE 50+ (1 of 1 - [...] - 26 mg/dL [facility] Creatinine 0.7 0.6 - 1.2 mg/dL [facility] Sodium 139 136 - 145 mmol/L [facility] Potassium 4.4 3.5 - 4.5 mmol/L [facility] Chloride 104 98 - 107 mmol/L [facility] CO2 25 22 - 29 mmol/L [facility] Glucose 113 70 - 115 mg/dL [facility] Calcium 9.5 8.4 - 10.2 mg/dL [facility] Anion Gap 14 8 - 18 [facility] BUN/Creatinine Ratio 14 7 - 23 [facility] Osmolality Calculated 288 270 - 300 mOsm/kg [facility] eGFR >60 >60 mL/min/1.7 3 m2 [facility] Blood specimen (specimen) BLOOD SPECIMEN / Unknown 06/14/2016 10:00 AM CDT 06/14/2016 10:57 AM CDT Leonor Wilkes Kenzieclaus LAP WELDER-MASTER FIRE CONTROL TECHNICIAN LAB - CHEMISTRY O RDERABLES Final Result Performing Organization Address City/State/[facility] de Phone Number [facility] [address] [phone] from Last 3 Months or Most Recently Relevant to Health Maintenance Insurance AETNA MEDICARE [place] [facility] MEDICARE MEDICAID - OUT OF STATE AETNA MEDICARE ADV MEDICAID - [place] Member Subscriber Plan / Payer (Ef fective 2023-Present) Name:Nirali Oropeza Relation to Subscriber:Self Name:Nirali Oropeza A Payer ID:Not on file Group ID:Not on file Type:Medicaid [place] Address: [place] [id number] AETNA MEDICARE [place] Subscriber Plan / Payer (Ef fective 2023-Present) Name:Nirali Oropeza A Relation to Subscriber:Self Name:Nirali Oropeza A Payer ID:Not on file Group ID:Not on file Type:Medicaid [place] Address: [place] [id number] [facility] MEDICARE ADV AETNA MEDICARE ADV [place]ICAID [place] [facility] MEDICARE [facility] MEDICARE ADV MED[place]ID - [place] Care Teams Tappet Adjuster Relationship Specialty Start Date End Date Martha Gray MD PCP - General 05/04/18
--- OUTSIDE RECORDS SUMMARY | 2024-08-27 16:17 | XMS_ITS | Encounter Summary ---
Author Organization [facility] Address [address] [facility] [place] [address] Phone Care Team Providers Care Help Desk Rep Name Role Phone Benji Rhonda Seymour APRN, GREGG Unavailable Leticia David MD Unavailable Boom Ram Primary Care Provider [phone] Reason for Visit * Reason Comments Medication Refill Encounter Details Date Type Department Care Team (Late Contact Info) Description 10/26/2022 Refill [facility] - Primary Care - [place] [address] [place] [address] Boom Ram PAC [address] [address] Medication Refill Social History Tobacco [...] Total Score: 0 01/21/20 22 2:00 PM CAR WASH ATTENDANT AUTOMATIC documented as of this encounter Care Teams Help Desk Rep Relationship Specialty Start Date End Date Boom Ram PAC [address] [address] PCP - General Physician Senior Developer 01/20/22 Rhonda Leblanc, DISTILLERY WORKER, CHEMICAL EQUIPMENT CONTROLLER Nurse Practitioner Advanced Practice Nurse 11/20/15 Leticia David MD [address] [phone] Consulting Physician Endocrinology 09/28/21 documented as of this encounter
--- OUTSIDE RECORDS SUMMARY | 2024-08-27 16:17 | XMS_ITS | Encounter Summary ---
Author Organization [facility] Address [address] [place] [address] [facility] [place] [address] Phone Care Team Providers Care Global Climate Change Researcher Name Role Phone Rhonda Leblanc MARGARITA, SAND POLISHER Unavailable Dilan Moon MD Primary Care Provider [phone] Leticia David MD Unavailable Boom Ram Primary Care Provider Reason for Visit * Reason Comments Medication Refill Encounter Details Date Type Department Care Team (Late st Contact Info) Description 08/05/2020 [facility]ill [facility] Oncology Services [address] [place] [address] Lorenzo Naylor MD [address] [place] [address] Medication Refill Social History Tobacco [...] documented as of this encounter Care Teams Global Climate Change Researcher Relationship Specialty Start Date End Date Dilan Moon MD PCP - General Sports Medicine 08/08/19 01/19/22 Boom Ram, PAC [address] [place] [address] PCP - General Physician Pe Electrical Engineer 01/20/22 Rhonda Leblanc, SUPPLY CHAIN MANAGER, SAND POLISHER Nurse Practitioner Advanced Practice Nurse 11/20/15 Leticia David MD [address] [phone] Consulting Physician Endocrinology 09/28/21 documented as of this encounter
--- OUTSIDE RECORDS SUMMARY | 2024-08-27 16:17 | XMS_ITS | Encounter Summary ---
Author Organization [facility] Address [address] [facility] [place] [address] Phone Care Team Providers Care Cement Mason Maintenance Name Role Phone BenjiRhonda nicholson Lion AVILA, HOSE TUBING BACKER Unavailable Leticia David MD Unavailable Boom Ram [facility] Primary Care Provider [phone] Reason for Visit * Reason Comments Medication Refill Encounter Details Date Type Department Care Team (Late st Contact Info) Description 10/16/2022 Refill [facility] - Primary Care - [place] [address] [place] [address] Abel Pope MD [address] [place] [address] Medication Refill Social History Tobacco [...] Depression Total Score: 0 01/21/20 2:00 PM CUT TO LENGTH OPERATOR documented as of this encounter Care Teams Cement Mason Maintenance Relationship Specialty Start Date End Date Boom Ram PAC [address] [place] [address] PCP - General Physician Silicator 01/20/22 Rhonda Leblanc, DIRECTOR ELECTRICAL ENGINEERING, HOSE TUBING BACKER Nurse Practitioner Advanced Practice Nurse 11/20/15 Leticia David MD [address] [phone] Consulting Physician Endocrinology 09/28/21 documented as of this encounter
--- OUTSIDE RECORDS SUMMARY | 2024-08-27 16:17 | XMS_ITS | Encounter Summary ---
Author Organization [facility] Address [address] [place] [address] [facility] [place] [address] Phone Care Team Providers Care Coal Hauler Operator Name Role Phone Rhonda Leblanc MARGARITA, TUBE MAKER Unavailable Dilan Moon MD Primary Care Provider Leticia David MD Unavailable Boom Ram Primary Care Provider Reason for Visit * Reason Comments Medication Refill Encounter Details Date Type Department Care Team (Late st Contact Info) Description 02/20/2020 Refill [facility] Oncology Services [address] [place] [address] Lorenzo Naylor MD [address] [place] [address] Medication Refill Social History Tobacco [...] COVID-19? No / Unsure 02/10/2020 11:38 AM TUG BOAT ENGINEER documented as of this encounter Miscellaneous Notes * Telephone Encounter - Dixie Cronin RN - 02/24/2020 10:24 AM TUG BOAT ENGINEER Refilled Ferrous Sulfate BOAT ENGINEER documented in this encounter Plan of Treatment Not on file documented as of this encounter Visit Diagnoses Diagnosis Iron deficiency anemia, unspecified iron deficiency anemia type documented in this encounter Additional Health Concerns Assessment Noted Time PHQ-9 Depression Total Score: 0 09/17/19 17 1:00 PM CDT documented as of this encounter Care Teams Coal Hauler Operator Relationship Specialty Start Date End Date Dilan Moon MD PCP - General Sports Medicine 08/08/19 01/19/22 Boom Ram, PAC [address] [place] [address] PCP - General Physician Weblogic Developer 01/20/22 Rhonda Leblanc, SUPERINTENDENT OVERHEAD DISTRIBUTION, TUBE MAKER Nurse Practitioner Advanced Practice Nurse 11/20/15 Leticia David MD [address] [phone] Consulting Physician Endocrinology 09/28/21 documented as of this encounter
--- OUTSIDE RECORDS SUMMARY | 2024-08-27 16:17 | XMS_ITS | Encounter Summary ---
Author Organization [facility] Address [address] [facility] [place] [address] Phone Care Team Providers Care Learning Solutions Specialist Name Role Phone Benji Rhonda Seymour APRN, GREGG Unavailable Leticia David MD Unavailable Boom Ram Primary Care Provider Reason for Visit * Reason Comments Medication Refill Encounter Details Date Type Department Care Team (Late Contact Info) Description 07/20/2023 Refill [facility] - Primary Care - [place] [address] [place] [address] Boom Ram PAC [address] [place] [address] Medication Refill Social History Tobacco [...] Depression Total Score: 0 01/21/20 2:00 PM HULL OUTFIT SUPERVISOR documented as of this encounter Care Teams Learning Solutions Specialist Relationship Specialty Start Date End Date Boom Ram PAC [address] [place] [address] PCP - General Physician Operations Supervisor 2Nd Shift 01/20/22 Rhonda Leblanc, STRADDLE BUG DRIVER, MEDICAL DIR Nurse Practitioner Advanced Practice Nurse 11/20/15 Leticia David MD [address] [address] Consulting Physician Endocrinology 09/28/21 documented as of this encounter
--- OUTSIDE RECORDS SUMMARY | 2024-08-27 16:17 | XMS_ITS | Referral Summary ---
Author Organization [facility] 1 [employer] Address [address] [place] [address] Phone Care Team Providers Care Vehicle Modification Technician Name Role Phone Robin Ahmadille WORK STATION SUPPORT SPECIALIST Primary Care Provider Allergies Active Allergy Reactions [...] on file Legal Sex Female 2:16 AM ANIME ARTIST Gender Identity Not on file Sexual Orientation Not on file Last Filed Vital Signs Vital Sign Reading Time Taken Comments Blood Pressure 142/54 06/09/2017 1:26 PM CDT Pulse 76 06/09/2017 1:26 PM CDT Temperature - - Respiratory Rate - - Oxygen Saturation 99% 03/29/2012 8:08 AM ANIME ARTIST Inhaled Oxygen Concentration - - Weight 110.7 kg (244 lb) 07/14/2017 1:22 PM CDT Height 172.7 cm (5' 8) 05/21/2012 11:14 AM CDT Body Mass Index 37.1 05/21/2012 11:14 AM CDT Plan of Treatment Not on file Insurance [facility] Care Teams Vehicle Modification Technician Relationship Specialty Start Date End Date Robin Ahmadi NP [address] [place], [place] [address]Ren[facility] [place] [address] PCP - General Nurse Practitioner 06/09/17
--- OUTSIDE RECORDS SUMMARY | 2024-08-27 16:17 | XMS_ITS | Clinical Summary ---
Author Organization [facility] Address [address] [facility], [address] [address] Phone Care Team Providers Care Car Repairer Pullman Name Role Phone Rhonda Leblanc APRN, GREGG [...] Lnp-s, Pf, 3 0 Mcg/0.3 Ml Dose (PlayCrafter) 06/29/2020,06/08/2020 Influenza Vaccine 02/26/2013, 2,11/22/2010,2009,12/29/2008,01/29/2008,01/11/2007 Influenza Vaccine [...] 1:44 PM CDT Height 170.2 cm (5' 7) 10/03/2022 1:44 PM CDT Body Mass Index 32.26 10/03/2022 1:44 PM CDT Plan of Treatment Health Maintenance Due Date Last Done Comments Hepatitis C Virus (HCV) Screening 1960 Cologuard 2005 Immunochemical Fecal Occult Blood 2005 Pneumococcal Immunization (50+ years) (1 of 1 - PCV) 2010 Zoster Immunization (1 of 2) 2010 Mammogram 03/11/2023 03/11/2022, 09/11, 09/04/2017, Additional history exists SARS-COV-2 Immunization ( season) 2023 06/29/2020, 06/08/2020 Influenza Immunization (Season Ended) 2024 01/20/2022, 01/10/2019, 01/24/2017, Additional history exists Colonoscopy 10/21/2025 10/21/2020, 12/12, 12/29/2014 Colorectal Cancer Screening 10/21/2025 Td Immunization Every 10 Years (Adults With 1 Tdap) 02/22/2026 02/23/2016 Respiratory Syncytial Virus (RSV) Immunization (Adult) (1 - 1-dose 75+ series) 2035 Pap Smear Discontinued 10/04/2016 Cervical Cancer Screening (CCS) Discontinued HPV/Cotest Discontinued Hepatitis B Immunization Aged Out No longer eligible based on patient's age to complete this topic Human Papillomavirus (HPV) Immunization Aged Out No longer eligible based [...] CAD W AWILDA Routine 03/11/2022 3:35 PM WILDLIFE FORENSIC GENETICIST Encounter for screening mammogram for malignant neoplasm of breast PATHOLOGY CYTOLOGY LOAN OFFICER ASSISTANT Routine 10/04/2016 4:18 PM CDT Well woman exam with routine gynecological exam HM COLONOSCOPY Routine 12/29/2014 from Last 3 Months or Most Recently Relevant to Health Maintenance Results * PILAR SCREENING BILATERAL DIGITAL W CAD W AWILDA (03/11/2022 3:35 PM WILDLIFE FORENSIC GENETICIST) Anatomical Region Laterality Modality breast Bilateral Mammography 03/11/2022 2:58 PM WILDLIFE FORENSIC GENETICIST Narrative 03/15/2022 8:16 AM WILDLIFE FORENSIC GENETICIST - PILAR SCREENING BILATERAL DIGITAL W CAD [...] to exams dated: 10/09/2019, 09/04/2017, and 10/04/2016 [facility]. BREAST TISSUE:The tissue of both breasts is [...] exam. Electronically signed by: Cory quinonez/diana:03/11/2022 18:49:58 Timber Management Professor(s): RT Jeyson(R)(M), [facility] letter sent: Normal Exam Reading location: [facility] BI-RADS: 1 Negative Procedure Note Cory Hassan [...] to exams dated: 10/09/2019, 09/04/2017, and 10/04/2016 [facility]. BREAST TISSUE:The tissue of both breasts is [...] exam. Electronically signed by: Cory quinonez/diana:03/11/2022 18:49:58 Timber Management Professor(s): Marie Arroyo RT(R)(M), [facility] letter sent: Normal Exam Reading location: [facility] BI-RADS: 1 Negative us Boom Ram PAC IMG MAMMO ORDERABLES Final R esult * PATHOLOGY CYTOLOGY LOAN OFFICER ASSISTANT (10/04/2016 4:18 PM CDT) SPECIMEN ADEQUACY Satisfactory for evaluation, squamous cells only. History of hysterectomy noted 10/07/2016 1:40 PM CDT [facility] DESCRIPTIVE DIAGNOSIS Negative for intraepithelial lesions. No dysplastic cells present. 10/07/2016 1:40 PM CDT [facility] at 1340 CDT AUTOMATED EXAMINATION Analysis of this sample has been assisted by an automated imaging and review system ([employer], [email or web address], [place], [place]). This case is further evaluated and finalized by a academic dean and/or pathologist. 10/07/2016 1:40 PM CDT [facility] DISCLAIMER The PAP smear is [...] recommended every three years for women 21-29, Co-Testing, a PAP test in conjunction with an HPV (Human Papillomavirus) test for women ages 30-65, and no PAP or HPV testing for women under the age of 21 or older than 65 unless clinically indicated. 10/07/2016 1:40 PM CDT [facility] Case Report Gynecologic Cytology Report Case: [id number] Authorizing Provider: Harvey Roger MD Collected: 10/04/2016 04:18 PM Ordering Location: [facility] Received: 10/04/2016 04:18 PM GROUP - OBSTETRICS AND GYNECOLOGY - [place] First Screen: Lian Bettencourt Specimen: Cervical/Endocervic al, liquid based thin layer preparation (Thin Prep ), CERVIX/ENDOCERVIX 10/07/2016 1:40 PM CDT [facility] HPV Reflex if ASCUS? No 10/07/2016 1:40 PM CDT [facility] Specimen of unknown material (specimen) CERVIX UTERI STRUCTURE / Unknown 10/04/2016 4:18 PM CDT 10/04/2016 4:18 PM CDT Harvey Roger MD PATHOLOGY/CYTOLOGY ORDERABL ES Final Result Performing Organization Address [facility] de Phone Number [facility] [address] [place] [address], [place] * COLONOSCOPY (12/29/2014) Nora Haywood MD PROCEDURE/MINOR SURGICA L ORDERABLES Final Result from Last 3 Months or Most Recently Relevant to Health Maintenance Insurance MEDICAID [place] MEDICARE C AETNA MEDICARE C [facility] on file Care Teams Car Repairer Pullman Relationship Specialty Start Date End Date Boom Ram PAC [address] [place] [phone] PCP - General Physician Preassembler Printed Circuit Board 01/20/22 Rhonda Leblanc, BOAT TENDER, WIRE LATHER Nurse Practitioner Advanced Practice Nurse 11/20/15 Leticia David MD [address] [address] Consulting Physician Endocrinology 09/28/21
--- OUTSIDE RECORDS SUMMARY | 2024-08-27 16:17 | XMS_ITS | Encounter Summary ---
Author Organization [facility] Address [address] [facility] [place] [address] Phone Care Team Providers Care Direct Care Specialist Name Role Phone Benji Rhonda Seymour APRN, GREGG Unavailable Leticia David MD Unavailable Boom Ram Primary Care Provider Reason for Visit * Reason Comments Medication Refill Encounter Details Date Type Department Care Team (Late st Contact Info) Description 06/29/2022 Refill [facility] - Primary Care - [place] [address] [place] [address] Boom Ram PAC [address] [place] [address] Medication Refill Social History Tobacco [...] Depression Total Score: 0 01/21/20 2:00 PM PUMP MACHINE OPERATOR documented as of this encounter Care Teams Direct Care Specialist Relationship Specialty Start Date End Date Boom Ram PAC [address] [place] [address] PCP - General Physician Computer Typesetter 01/20/22 Rhonda Leblanc, CLIPPER MACHINE OPERATOR, LANDING WORKER Nurse Practitioner Advanced Practice Nurse 11/20/15 Leticia David MD [address] [phone] Consulting Physician Endocrinology 09/28/21 documented as of this encounter
--- OUTSIDE RECORDS SUMMARY | 2024-08-27 16:17 | XMS_ITS | Encounter Summary ---
Author Organization [facility] Address [address] [facility] [place] [address] Phone Care Team Providers Care Computer Network Engineer Name Role Phone Benji Rhonda Seymour APRN, GREGG Unavailable Leticia David MD Unavailable Boom Ram Primary Care Provider [phone] Reason for Visit * Reason Comments Medication Refill Encounter Details Date Type Department Care Team (Late Contact Info) Description 03/23/2023 Refill [facility] - Primary Care - [place] [address] [place] [address] Boom Ram PAC [address] [place] [address] Medication Refill Social History Tobacco [...] Depression Total Score: 0 01/21/20 2:00 PM TREND INVESTIGATOR documented as of this encounter Care Teams Computer Network Engineer Relationship Specialty Start Date End Date Boom Ram, PAC [address] [place] [address] PCP - General Physician Coconut Candy Maker 01/20/22 Rhonda Leblanc, BAKER OPERATOR AUTOMATIC, COOK HELPER DESSERT Nurse Practitioner Advanced Practice Nurse 11/20/15 Leticia David MD [address] [address] Consulting Physician Endocrinology 09/28/21 documented as of this encounter
--- OUTSIDE RECORDS SUMMARY | 2024-08-27 16:17 | XMS_ITS | Encounter Summary ---
Author Organization [facility] Address [address] [facility] [place] [address] Phone Care Team Providers Care Chip Mucker Name Role Phone Benji Rhonda Seymour APRN, GREGG Unavailable Leticia David MD Unavailable Boom Ram Primary Care Provider Reason for Visit * Reason Comments Medication Refill Encounter Details Date Type Department Care Team (Late Contact Info) Description 07/14/2023 Refill [facility] - Primary Care - [place] [address] [place] [address] Boom Ram PAC [address] [place] [address] Medication Refill Social History Tobacco [...] Depression Total Score: 0 01/21/20 2:00 PM JOB LITHOGRAPHER documented as of this encounter Care Teams Chip Mucker Relationship Specialty Start Date End Date Boom Ram PAC [address] [place] [address] PCP - General Physician Skin Grader 01/20/22 Rhonda Leblanc, MARGARITA, SPACE PLANNER Nurse Practitioner Advanced Practice Nurse 11/20/15 Leticia David MD [address] [phone] Consulting Physician Endocrinology 09/28/21 documented as of this encounter
--- OUTSIDE RECORDS SUMMARY | 2024-08-27 16:17 | XMS_ITS | Encounter Summary ---
Author Organization [facility] Address [address] [facility] [place] [address] Phone Care Team Providers Care Basketball Commentator Name Role Phone Benji Rhonda Seymour APRN, GREGG Unavailable Leticia David MD Unavailable Boom Ram Primary Care Provider Reason for Visit * Reason Comments Medication Refill Encounter Details Date Type Department Care Team (Late Contact Info) Description 08/23/2022 Refill [facility] - Primary Care - [place] [address] [place] [address] Boom Ram PAC [address] [place] [address] Medication Refill Social History Tobacco [...] Dept 07/20/22 Office Visit Boom Ram PAC [facility] 06/09/22 Office Visit Boom Ram [facility] 05/19/22 Office Visit Boom Ram [facility] 01/20/22 Office Visit Boom Ram [facility] Showing recent visits within past [...] Provider Dept 07/20/22 Office Visit Boom Ram, [facility] 06/09/22 Office Visit Boom Ram, [facility] 05/19/22 Office Visit Boom Ram, [facility] 01/20/22 Office Visit Boom Ram, [facility] Showing recent visits within past [...] Provider Dept 07/20/22 Office Visit Boom Ram [facility] 06/09/22 Office Visit Boom Ram [facility] 05/19/22 Office Visit Boom Ram [facility] 01/20/22 Office Visit Boom Ram [facility] Showing recent visits within past 365 [...] Depression Total Score: 0 01/21/20 2:00 PM COLOR LABORATORY TECHNICIAN documented as of this encounter Care Teams Basketball Commentator Relationship Specialty Start Date End Date Boom Ram, PAC [address] [place] [address] PCP - General Physician Mainstreaming Facilitator 01/20/22 Rhonda Leblanc, CLAM DREDGER, REHABILITATION TECHNICIAN Nurse Practitioner Advanced Practice Nurse 11/20/15 Leticia David MD [address] [phone] Consulting Physician Endocrinology 09/28/21 documented as of this encounter
== END 2024-08-27 15:23 | disposition home or self-care (01) ==
LOC: ANHGOSHLAB 15:23
PROVIDERS: PCP Family Medicine; Visit Provider Student in an Organized Health Care Education/Training Program
DX: R39.9 Unspecified symptoms and signs involving the genitourinary system (principal)
CPT/HCPCS: 87086

== ENCOUNTER 2024-12-30 10:17 | Outpatient (CLI) | payer MEDICARE, SELFPAY ==
--- OUTSIDE RECORDS SUMMARY | 2024-12-30 11:59 | XMS_ITS | Clinical Summary ---
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 Gender Identity Not on file Sexual Orientation Not on file Obstetrics History Last Filed Vital Signs Vital Sign Reading Time Taken Comments Blood Pressure 142/54 06/09/2017 1:26 PM CDT Pulse 76 06/09/2017 1:26 PM CDT Temperature - - Respiratory Rate - - Oxygen Saturation 99% 03/29/2012 8:08 AM ROLLER REPAIRER Inhaled Oxygen Concentration - - Weight 110.7 kg (244 lb) 07/14/2017 1:22 PM CDT Height 172.7 cm (5' 8) 05/21/2012 11:14 AM CDT Body Mass Index 37.1 05/21/2012 11:14 AM CDT Plan of Treatment Not on file Insurance [facility] Care Teams Dinkey Operator Relationship Specialty Start Date End Date Robin Ahmadi NP PCP - General Nurse Practitioner 06/09/17
--- OUTSIDE RECORDS SUMMARY | 2024-12-30 11:59 | XMS_ITS | Clinical Summary ---
Author Organization [facility] Address [address] [place] [address] Care Team Providers Care Angle Shearer Name Role Phone Martha Gray MD Primary Care Provider [phone] Source Comments [facility],non-owned Affiliates and Associated Physician Practices is amultiple site organization consisting of ambulatory clinics and hospital sitesin [place], [place], [place] and [place]. This disclosure is being madepursuant to the Care Everywhere program and may not contain all information available regarding this patient. 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 Gender Identity Not on file Sexual Orientation [...] - Risk 60-74 years 1-dose series) 2020 DEPRESSION SCREENING 03/13/2024 MEDICARE AWV CALENDAR YEAR 2024 COVID-19 VACCINE ( - season) 2024 INFLUENZA VACCINE (#1) 2024 7, 01/29/2016, 02/26/2013, Additional history exists HEPATITIS B [...] CDT) BUN 10 7 - 26 mg/dL [facility] Creatinine 0.7 0.6 - 1.2 mg/dL [facility] Sodium 139 136 - 145 mmol/L [facility] Potassium 4.4 3.5 - 4.5 mmol/L [facility] Chloride 104 98 - 107 mmol/L [facility] CO2 25 22 - 29 mmol/L [facility] Glucose 113 70 - 115 mg/dL [facility] Calcium 9.5 8.4 - 10.2 mg/dL [facility] Anion Gap 14 8 - 18 [facility] BUN/Creatinine Ratio 14 7 - 23 [facility] Osmolality Calculated 288 270 - 300 mOsm/kg [facility] eGFR >60 >60 mL/min/1.7 3 m2 [facility] Blood specimen (specimen) BLOOD SPECIMEN / Unknown 06/14/2016 10:00 AM CDT 06/14/2016 10:57 AM CDT Leonor Magdalenoebenezerclaus ENTERTAINMENT MUSICIAN-SURGERY AID LAB - CHEMISTRY O RDERABLES Final Result Performing Organization Address City/State/[facility] Co de Phone Number [facility] [address] [phone] from Last 3 Months or Most Recently Relevant to Health Maintenance Insurance AETNA MEDICARE [place]V [place] [facility] MEDICARE MEDICAID - [facility] AETNA MEDICARE [place]ID [place] AET MEDICARE [facility] MEDICAID - [place] Member Subscriber Plan / Payer (Ef fective 2023-Present) Name:Nirali Oropeza Relation to Subscriber:Self Name:Nirali Oropeza Payer ID:Not on file Group ID:Not on file Type:Medicaid [place] Address: [place] [id number] MEDICAID [place] Member Subscriber Plan / Payer (Ef fective 2023-Present) Name:Nirali Oropeza Relation to Subscriber:Self Name:Nirali Oropeza Payer ID:Not on file Group ID:Not on file Type:Medicaid [place] Address: [place] [id number] [facility] MEDICARE [facility] AETNA MEDICARE ADV [place]ETNA MEDICARE ADV [facility] MEDICARE ADV MEDICAID - [place] Care Teams Angle Shearer Relationship Specialty Start Date End Date Martha Gray MD PCP - General 05/04/18
--- OUTSIDE RECORDS SUMMARY | 2024-12-30 11:59 | XMS_ITS | Encounter Summary ---
Author Organization [facility] Address [address] [facility] [address] Phone Care Team Providers Care State Farm Agent Team Member Name Role Phone Benji Rhonda Seymour APRN, GREGG Unavailable Leticia David MD Unavailable Boom Ram Primary Care Provider [phone] Reason for Visit * Reason Comments Medication Refill Encounter Details Date Type Department Care Team (Late Contact Info) Description 10/26/2022 Refill [facility] - Primary Care - [place] [address] [place] [address] Boom Ram PAC [address] [place] [address] Medication Refill Social History Tobacco [...] Total Score: 0 01/21/20 22 2:00 PM YARN MERCERIZER OPERATOR HELPER documented as of this encounter Care Teams State Farm Agent Team Member Relationship Specialty Start Date End Date Boom Ram PAC [address] [place] [address] PCP - General Physician Table Games Supervisor 01/20/22 Rhonda Leblanc, IMPORT MANAGER, CONTINUOUS CHURN BUTTERMAKER Nurse Practitioner Advanced Practice Nurse 11/20/15 Leticia David MD [address] [phone] Consulting Physician Endocrinology 09/28/21 documented as of this encounter
--- OUTSIDE RECORDS SUMMARY | 2024-12-30 11:59 | XMS_ITS | Clinical Summary ---
Author Organization [facility] Address [address] [facility], [address] [address] Phone Care Team Providers Care Intermodal Owner Operator Truck Driver Name Role Phone Rhonda Leblanc APRN, GREGG [...] Lnp-s, Pf, 3 0 Mcg/0.3 Ml Dose (The Invisible Armor) 06/29/2020,06/08/2020 Influenza Vaccine 02/26/2013, 2,11/22/2010,2009,12/29/2008,01/29/2008,01/11/2007 Influenza Vaccine [...] 2010 Zoster Immunization (1 of 2) 2010 Medicare Initial AWV [id number] 01/12/2020 Mammogram 03/11/2023 03/11/2022, 09/11, 09/04/2017, Additional history exists Influenza Immunization (#1) 11/11/202401/11, 01/10/2019, 01/24/2017, Additional history exists SARS-COV-2 Immunization ( season) 2024 06/29/2020, 06/08/2020 Colonoscopy 10/21/2025 10/21/2020, 12/12, 12/29/2014 Colorectal Cancer Screening 10/21/2025 Td Immunization Every 10 Years (Adults With 1 Tdap) 02/22/2026 02/23/2016 Respiratory Syncytial Virus (RSV) Immunization (Adult) (1 - 1-dose 75+ series) 2035 Hepatitis B Immunization Aged Out No longer [...] CAD W AWILDA Routine 03/11/2022 3:35 PM FRONT DESK AUXILIARY Encounter for screening mammogram for malignant neoplasm of breast HM COLONOSCOPY Routine 12/29/2014 from Last 3 Months or Most Recently Relevant to Health Maintenance Results * PILAR SCREENING BILATERAL DIGITAL W CAD W AWILDA (03/11/2022 3:35 PM FRONT DESK AUXILIARY) Anatomical Region Laterality Modality breast Bilateral Mammography 03/11/2022 2:58 PM FRONT DESK AUXILIARY Narrative 03/15/2022 8:16 AM FRONT DESK AUXILIARY - PILAR SCREENING BILATERAL DIGITAL W CAD [...] to exams dated: 10/09/2019, 09/04/2017, and 10/04/2016 [facility]. BREAST TISSUE:The tissue of both breasts is [...] exam. Electronically signed by: Cory Hassan M.D. /diana:03/11/2022 18:49:58 Canvas Shrinker(s): RT Jeyson(Marcio)(M), [facility] letter sent: Normal Exam Reading location: [facility] BI-RADS: 1 Negative Procedure Note Cory Hassan [...] to exams dated: 10/09/2019, 09/04/2017, and 10/04/2016 [facility]. BREAST TISSUE:The tissue of both breasts is [...] exam. Electronically signed by: Cory quinonez/diana:03/11/2022 18:49:58 Canvas Shrinker(s): Marie Arroyo RT(R)(M), [facility]: Normal Exam Reading location: [facility] BI-RADS: 1 Negative us Boom Ram PAC IMG MAMMO ORDERABLES Final R esult * HM COLONOSCOPY (12/29/2014) Nora Haywood MD PROCEDURE/MINOR SURGICA L ORDERABLES Final Result from Last 3 Months or Most Recently Relevant to Health Maintenance Insurance MEDICAID [place] MEDICARE C [facility] MEDICARE C [employer] on file Care Teams Intermodal Owner Operator Truck Driver Relationship Specialty Start Date End Date Boom Ram, PAC [address] [place] [phone] PCP - General Physician Middle School Professional 01/20/22 Rhonda Leblanc, VETERINARY BACTERIOLOGIST, STEAM HEATING INSTALLER Nurse Practitioner Advanced Practice Nurse 11/20/15 Leticia David MD [address] [phone] Consulting Physician Endocrinology 09/28/21
--- OUTSIDE RECORDS SUMMARY | 2024-12-30 11:59 | XMS_ITS | Encounter Summary ---
Author Organization [facility] Address [address] [facility] [place] [address] Phone Care Team Providers Care Brass Plater Name Role Phone BenjiRhonda nicholson Lion AVILA, FEED PROJECT ENGINEER Unavailable Leticia David MD Unavailable Boom Ram [facility] Primary Care Provider [phone] Reason for Visit * Reason Comments Medication Refill Encounter Details Date Type Department Care Team (Late st Contact Info) Description 10/16/2022 Refill [facility] - Primary Care - [place] [address] [place] [address] Abel Pope MD [address] [place] [address] Medication Refill Social History Tobacco [...] Depression Total Score: 0 01/21/20 2:00 PM LABOR RELATIONS DIRECTOR documented as of this encounter Care Teams Brass Plater Relationship Specialty Start Date End Date Boom Ram PAC [address] [place] [address] PCP - General Physician Intertype Operator 01/20/22 Rhonda Leblanc, BOARDER HAND, FEED PROJECT ENGINEER Nurse Practitioner Advanced Practice Nurse 11/20/15 Leticia David MD [address] [phone] Consulting Physician Endocrinology 09/28/21 documented as of this encounter
--- OUTSIDE RECORDS SUMMARY | 2024-12-30 11:59 | XMS_ITS | Encounter Summary ---
Author Organization [facility] Address [address] [facility] [place] [address] Phone Care Team Providers Care Public Relations Player Name Role Phone Benji Rhonda Seymour APRN, GREGG Unavailable Leticia David MD Unavailable Boom Ram Primary Care Provider Reason for Visit * Reason Comments Medication Refill Encounter Details Date Type Department Care Team (Late Contact Info) Description 07/20/2023 Refill [facility] - Primary Care - [place] [address] [place] [address] Boom Ram PAC [address] [place] [address] Medication Refill Social History Tobacco [...] Depression Total Score: 0 01/21/20 2:00 PM COBOL MAINFRAME DEVELOPER documented as of this encounter Care Teams Public Relations Player Relationship Specialty Start Date End Date Boom Ram PAC [address] [place] [address] PCP - General Physician Senior Security Engineer 01/20/22 Rhonda Leblanc, METER MAKER, NAIL MAKING MACHINE TENDER Nurse Practitioner Advanced Practice Nurse 11/20/15 Leticia David MD [address] [address] Consulting Physician Endocrinology 09/28/21 documented as of this encounter
--- OUTSIDE RECORDS SUMMARY | 2024-12-30 11:59 | XMS_ITS | Encounter Summary ---
Author Organization [facility] Address [address] [facility] [place] [address] Phone Care Team Providers Care Drug Inspector Name Role Phone Benji Rhonda Seymour APRN, GREGG Unavailable Leticia David MD Unavailable Boom Ram Primary Care Provider Reason for Visit * Reason Comments Medication Refill Encounter Details Date Type Department Care Team (Late Contact Info) Description 08/23/2022 Refill [facility] - Primary Care - [place] [address] [place] [address] Boom Ram PAC [address] [place] [address] Medication Refill Social History Tobacco [...] Dept 07/20/22 Office Visit Boom Ram PAC [facility] 06/09/22 Office Visit Boom Ram [facility] 05/19/22 Office Visit Boom Ram [facility] 01/20/22 Office Visit Boom Ram [facility] Showing recent visits within past 365 days [...] Provider Dept 07/20/22 Office Visit Boom Ram, [facility] 06/09/22 Office Visit Boom Ram, [facility] 05/19/22 Office Visit Boom Ram, [facility] 01/20/22 Office Visit Boom Ram, [facility] Showing recent visits within past 365 days [...] Provider Dept 07/20/22 Office Visit Boom Ram [facility] 06/09/22 Office Visit Boom Ram [facility] 05/19/22 Office Visit Boom Ram [facility] 01/20/22 [facility] [...] Depression Total Score: 0 01/21/20 2:00 PM ENGINE ROOM OPERATOR documented as of this encounter Care Teams Drug Inspector Relationship Specialty Start Date End Date Boom Ram, PAC [address] [place] [address] PCP - General Physician Enterprise Software Engineer 01/20/22 Rhonda Leblanc, LIQUEFACTION AND REGASIFICATION HELPER, SAFETY NET MAKER Nurse Practitioner Advanced Practice Nurse 11/20/15 Leticia David MD [address] [phone] Consulting Physician Endocrinology 09/28/21 documented as of this encounter
--- OUTSIDE RECORDS SUMMARY | 2024-12-30 11:59 | XMS_ITS | Encounter Summary ---
Author Organization [facility] Address [address] [facility] [place] [address] Phone Care Team Providers Care Crepe Machine Operator Name Role Phone Benji Rhonda Seymour APRN, GREGG Unavailable Leticia David MD Unavailable Boom Ram Primary Care Provider Reason for Visit * Reason Comments Medication Refill Encounter Details Date Type Department Care Team (Late st Contact Info) Description 06/29/2022 Refill [facility] - Primary Care - [place] [address] [place] [address] Boom Ram PAC [address] [place] [address] Medication Refill Social History Tobacco [...] Depression Total Score: 0 01/21/20 2:00 PM APARTMENT LEASING MANAGER documented as of this encounter Care Teams Crepe Machine Operator Relationship Specialty Start Date End Date Boom Ram PAC [address] [place] [address] PCP - General Physician Thermospray Operator 01/20/22 Rhonda Leblanc, HSE SPECIALIST, ROLLED SEAT TRIMMER Nurse Practitioner Advanced Practice Nurse 11/20/15 Leticia David MD [address] [phone] Consulting Physician Endocrinology 09/28/21 documented as of this encounter
--- OUTSIDE RECORDS SUMMARY | 2024-12-30 11:59 | XMS_ITS | Encounter Summary ---
Author Organization [facility] Address [address] [facility] [place] [address] Phone Care Team Providers Care Victim Advocate Name Role Phone Rhonda Leblanc MARGARITA, INSERTING OPERATOR Unavailable Dilan Moon MD Primary Care Provider Leticia David MD Unavailable Boom Ram Primary Care Provider Reason for Visit * Reason Comments Medication Refill Encounter Details Date Type Department Care Team (Late st Contact Info) Description 02/20/2020 Refill [facility] Oncology Services [address] [place] [address] Lorenzo Naylor MD [address] [place] [address] Medication Refill Social History Tobacco [...] COVID-19? No / Unsure 02/10/2020 11:38 AM QUAL RESEARCH MANAGER documented as of this encounter Miscellaneous Notes * Telephone Encounter - Dixie Cronin RN - 02/24/2020 10:24 AM QUAL RESEARCH MANAGER Refilled Ferrous Sulfate RESEARCH MANAGER documented in this encounter Plan of Treatment Not on file documented as of this encounter Visit Diagnoses Diagnosis Iron deficiency anemia, unspecified iron deficiency anemia type documented in this encounter Additional Health Concerns Assessment Noted Time PHQ-9 Depression Total Score: 0 09/17/19 17 1:00 PM CDT documented as of this encounter Care Teams Victim Advocate Relationship Specialty Start Date End Date Dilan Moon MD PCP - General Sports Medicine 08/08/19 01/19/22 Boom Ram, PAC [address] [place] [address] PCP - General Physician Second Shift Supervisor 01/20/22 Rhonda Leblanc, CRATE BUILDER, INSERTING OPERATOR Nurse Practitioner Advanced Practice Nurse 11/20/15 Leticia David MD [address] [phone] Consulting Physician Endocrinology 09/28/21 documented as of this encounter
--- OUTSIDE RECORDS SUMMARY | 2024-12-30 11:59 | XMS_ITS | Encounter Summary ---
Author Organization [facility] Address [address] [facility] [place] [address] Phone Care Team Providers Care Car Repairman Name Role Phone Rhonda Leblanc MARGARITA, SUGAR BOILER Unavailable Dilan Moon MD Primary Care Provider [phone] Leticia David MD Unavailable Boom Ram Primary Care Provider [phone] Reason for Visit * Reason Comments Medication Refill Encounter Details Date Type Department Care Team (Late st Contact Info) Description 08/05/2020 Refill [facility] Oncology Services [address] [place] [address] Lorenzo Naylor MD [address] [place] [address] Medication Refill Social History Tobacco [...] documented as of this encounter Care Teams Car Repairman Relationship Specialty Start Date End Date Dilan Moon MD PCP - General Sports Medicine 08/08/19 01/19/22 Boom Ram, PAC [address] [place] [address] PCP - General Physician Bisque Kiln Placer 01/20/22 Rhonda Leblanc, BULK DELIVERY DRIVER, SUGAR BOILER Nurse Practitioner Advanced Practice Nurse 11/20/15 Leticia David MD [address] [phone] Consulting Physician Endocrinology 09/28/21 documented as of this encounter
--- OUTSIDE RECORDS SUMMARY | 2024-12-30 11:59 | XMS_ITS | Encounter Summary ---
Author Organization [facility] Address [address] [facility] [place] [address] Phone Care Team Providers Care Educational Technology Coordinator Name Role Phone Benji Rhonda Seymour APRN, GREGG Unavailable Leticia David MD Unavailable Boom Ram Primary Care Provider Reason for Visit * Reason Comments Medication Refill Encounter Details Date Type Department Care Team (Late Contact Info) Description 07/14/2023 Refill [facility] - Primary Care - [place] [address] [place] [address] Boom Ram PAC [address] [place] [address] Medication Refill Social History Tobacco [...] Dept 10/03/22 Office Visit Abel Pope MD [facility] 07/20/22 Office Visit Boom Ram PAC [facility] Showing recent visits within past 365 days [...] Depression Total Score: 0 01/21/20 2:00 PM UTILITY SUPERVISOR BOAT AND PLANT documented as of this encounter Care Teams Educational Technology Coordinator Relationship Specialty Start Date End Date Boom Ram PAC [address] [place] [address] PCP - General Physician Energy Efficiency Engineer 01/20/22 Rhonda Leblanc, MARGARITA, HOUSE FELLOW Nurse Practitioner Advanced Practice Nurse 11/20/15 Leticia David MD [address] [phone] Consulting Physician Endocrinology 09/28/21 documented as of this encounter
--- OUTSIDE RECORDS SUMMARY | 2024-12-30 11:59 | XMS_ITS | Encounter Summary ---
Author Organization [facility] Address [address] [facility] [place] [address] Phone Care Team Providers Care International Trade Manager Name Role Phone Benji Rhonda Seymour APRN, GREGG Unavailable Leticia David MD Unavailable Boom Ram Primary Care Provider Reason for Visit * Reason Comments Medication Refill Encounter Details Date Type Department Care Team (Late Contact Info) Description 03/23/2023 Refill [facility] - Primary Care - [place] [address] [place] [address] Boom Ram PAC [address] [place] [address] Medication Refill Social History Tobacco [...] Depression Total Score: 0 01/21/20 2:00 PM GLOBAL PROGRAM DIRECTOR documented as of this encounter Care Teams International Trade Manager Relationship Specialty Start Date End Date Boom Ram, PAC [address] [place] [address] PCP - General Physician Diabetes Specialist 01/20/22 Rhonda Leblanc, COMPONENT TECHNICIAN, ROLLER BEARING INSPECTOR Nurse Practitioner Advanced Practice Nurse 11/20/15 Leticia David MD [address] [phone] Consulting Physician Endocrinology 09/28/21 documented as of this encounter
[2024-12-30 13:08] LABS: Alanine Aminotransferase 8 U/L (6-35); Albumin Level 3.8 g/dL (3.5-5.1); Alkaline Phosphatase 69 U/L (38-126); Anion Gap 7 mmol/L (4-12); Aspartate Amino Transferase 45 U/L (14-36); Bilirubin,Total 0.6 mg/dL (0.2-1.3); Blood Urea Nitrogen 13 mg/dL (7-17); Calcium 9.0 mg/dL (8.4-10.2); Carbon Dioxide 24 mmol/L (22-30); Chloride 102 mmol/L (98-107); Cholesterol 136 mg/dL (0-200); Estimated Glomerular Filt Rate > 60; Glucose 90 mg/dL (65-110); HDL Direct 55 mg/dL; Potassium 4.5 mmol/L (3.4-5.0); Sodium 133 mmol/L (137-145); Total Protein 7.0 g/dL (6.3-8.2); Triglycerides 112 mg/dL (<150)
[2024-12-30 13:09] LABS: Hematocrit 35.9 % (37.0-47.0); Hemoglobin 11.4 g/dL (12.0-15.0); Immature Granulocyte Percent A 0.4 % (0-0.5); Lymphocytes Absolute Auto 1.91 K/mm3 (0.9-3.2); Mean Corpuscular HGB Conc 31.8 g/dl (32-36); Mean Corpuscular Hemoglobin 30.2 pg (26-34); Mean Corpuscular Volume 95.2 fl (80-100); Nucleated Red Blood Cells Absolute Auto 0.000 K/mm3 (0.0-0.012); Nucleated Red Blood Cells Perc 0.0 % (0.0-0.2); Platelet Count Result 249 k/mm3 (150-375); Red Blood Count 3.77 M/mm3 (4.2-5.4); White Blood Count 5.4 K/mm3 (4.5-10.0)
[2024-12-30 13:44] LABS: Thyroid Stimulating Hormone 1.550 uIU/mL (0.465-4.680)
[2024-12-30 13:45] LABS: Ferritin 288.00 ng/mL (11.1-264)
== END 2024-12-30 10:18 | disposition home or self-care (01) ==
LOC: ANHGOSHLAB 10:18
PROVIDERS: PCP Family Medicine; Visit Provider Student in an Organized Health Care Education/Training Program
DX: D50.9 Iron deficiency anemia, unspecified (principal); I10 Essential (primary) hypertension; E78.5 Hyperlipidemia, unspecified; E89.0 Postprocedural hypothyroidism
CPT/HCPCS: 36415; 80053; 80061; 82728; 84443; 85025

== ENCOUNTER 2025-01-09 09:01 | Outpatient (CLI) | payer MEDICARE, SELFPAY ==
--- NOTE | ~2025-01-09 | NM_ITS ---
EXAMINATION: NM cindi stress w perfusion DATE: 01/09/2025 11:41 INDICATION: Chest pain. Fatigue. TECHNIQUE: Rest images were obtained following intravenous administration of 10.9 mCi Tc99m tetrofosmin (Myoview). The patient was infused intravenously with Lexiscan (regadenoson). Then, 34.4 mCi Tc99m tetrofosmin (Myoview) was administered intravenously, and supine and prone stress images were obtained. Data was reconstructed into short axis and horizontal and vertical long axis SPECT images. Gated SPECT images were also obtained. COMPARISON: None. FINDINGS: There is a small, mild, reversible perfusion defect involving mid anterior segment of left ventricle, consistent with ischemia. There is a small, mild, reversible perfusion defect involving mid inferior wall of left ventricle, consistent with ischemia. There is no segmental wall motion abnormality. Left ventricular ejection fraction measures 66%. IMPRESSION: 1. Small areas of mild ischemia involving mid anterior segment and mid inferior segment of left ventricle. 2. Normal left ventricular ejection fraction measuring 66%. Reviewed, dictated and finalized at location E.
--- NOTE | 2025-01-09 09:18 | EST_ITS ---
Patient Info Name: Nirali Oropeza Age: 64 years : 1960 Gender: Female Ht: 67 in Wt: 189 lbs BSA: 2.04 m2 HR: 53 bpm BP: 133 / 60 mmHg Exam Date: 01/09/2025 9:18 AM Patient Status: O Admit Date: 01/09/2025 Exam Type: CA stress cindi w NM A regadenoson stress test was performed. Staff Referring Physician: Keegan Bustamante Attending Provider: Keegan Bustamante Exercise Technologist: Olivia Fountain Exercise Physician: Walt Walden DO Summary 1. 1. Negative lexiscan stress test for ischemic ST changes by ECG criteria. 2. 2. Stable hemodynamics throughout the test. 3. 3. Nuclear scan to follow and will be reported separately. Please correlate with it. 4. 4. Patient informed of the above results. Protocol: Lexiscan Stress ECG Details Stage: REST Duration (min): 1 min : 2 sec HR (bpm): 53 SBP (mmHg): 133 DBP (mmHg): 60 Stage: REST Duration (min): 9 min : 9 sec HR (bpm): 54 SBP (mmHg): 133 DBP (mmHg): 60 Stage: STAGE 1 Duration (min): 1 min : 0 sec HR (bpm): 70 SBP (mmHg): 128 DBP (mmHg): 70 Stage: RECOVERY Duration (min): 1 min : 0 sec HR (bpm): 71 SBP (mmHg): 128 DBP (mmHg): 70 Stage: RECOVERY Duration (min): 2 min : 0 sec HR (bpm): 68 SBP (mmHg): 128 DBP (mmHg): 70 Stage: RECOVERY Duration (min): 3 min : 0 sec HR (bpm): 64 SBP (mmHg): 132 DBP (mmHg): 64 Stage: RECOVERY Duration (min): 3 min : 25 sec HR (bpm): 66 SBP (mmHg): 132 DBP (mmHg): 64 Rest HR: 54 bpm Peak HR: 76 bpm Rest Sys BP: 133 mmHg Peak Sys BP: 132 mmHg Max Pred HR: 156 bpm % Max Pred HR: 49 % Target HR: 133 bpm Max RPP: 10,032 bpm*mmHg Termination Reason: Completed protocol Cardiac Symptoms: Shortness of breath Total Time: 1 min : 0 sec Rest Javier BP: 60 mmHg Peak Javier BP: 64 mmHg Total Dose: 0.4 mg Resting ECG Sinus bradycardia. Stress ECG No ST changes. Arrhythmias None. Report Signatures
--- OUTSIDE RECORDS SUMMARY | 2025-01-09 09:33 | XMS_ITS | Encounter Summary ---
Author Organization [facility] Address [address] [facility] [place] [address] Phone Care Team Providers Care Verification Clerk Name Role Phone Benji Rhonda Seymour APRN, GREGG Unavailable Leticia David MD Unavailable Boom Ram Primary Care Provider [phone] Reason for Visit * Reason Comments Medication Refill Encounter Details Date Type Department Care Team (Late st Contact Info) Description 07/20/2023 Refill [facility] - Primary Care - [place] [address] [place] [address] Boom Ram PAC [address] [place] [address] Medication Refill Social History Tobacco Use Types Packs/Day Years Used Date Smoking Tobacco: Former Cigarettes 0 Q uit: 09/11/1978 Smokeless Tobacco: Never Alcohol [...] Total Score: 0 01/21/20 22 2:00 PM RESOLUTION SPECIALIST documented as of this encounter Care Teams Verification Clerk Relationship Specialty Start Date End Date Boom Ram PAC [address] [place] [address] PCP - General Physician Mexican Food Machine Tender 01/20/22 Rhonda Leblanc, FILM FLAT INSPECTOR, YARN SPINNER Nurse Practitioner Advanced Practice Nurse 11/20/15 Leticia David MD [address] [address] Consulting Physician Endocrinology 09/28/21 documented as of this encounter
--- OUTSIDE RECORDS SUMMARY | 2025-01-09 09:33 | XMS_ITS | Clinical Summary ---
Author Organization [facility] Address [address] [facility], [address] [address] Phone Care Team Providers Care Vmware Systems Administrator Name Role Phone Rhonda Leblanc APRN, GREGG [...] Lnp-s, Pf, 3 0 Mcg/0.3 Ml Dose (Snaptiva) 06/29/2020,06/08/2020 Influenza Vaccine 02/26/2013, 2,11/22/2010,2009,12/29/2008,01/29/2008,01/11/2007 Influenza Vaccine [...] 0 Q uit: 09/11/1978 Smokeless Tobacco: Never Tobacco [...] Procedure Name Priority Date/Time Associated Diagnosis Comments PILRA SCREENING BILATERAL DIGITAL W CAD W AWILDA Routine 03/11/2022 3:35 PM MILD DISABILITIES TEACHER Encounter for screening mammogram for malignant neoplasm of breast HM COLONOSCOPY Routine 12/29/2014 from Last 3 Months or Most Recently Relevant to Health Maintenance Results * PILAR SCREENING BILATERAL DIGITAL W CAD W AWILDA (03/11/2022 3:35 PM MILD DISABILITIES TEACHER) Anatomical Region Laterality Modality breast Bilateral Mammography 03/11/2022 2:58 PM MILD DISABILITIES TEACHER Narrative 03/15/2022 8:16 AM MILD DISABILITIES TEACHER - PILAR SCREENING BILATERAL DIGITAL W [...] to exams dated: 10/09/2019, 09/04/2017, and 10/04/2016 [facility]. BREAST TISSUE:The tissue of both breasts [...] exam. Electronically signed by: Cory Hassan M.D. /penannette:03/11/2022 18:49:58 Product Assembler(s): RT Jeyson(Marcio)(M), [facility] letter sent: Normal Exam Reading location: [facility] BI-RADS: 1 Negative Procedure Note Cory [...] exams dated: 10/09/2019, 09/04/2017, and 10/04/2016 [facility]. BREAST TISSUE:The tissue of both breasts [...] exam. Electronically signed by: Cory quinonez/diana:03/11/2022 18:49:58 Product Assembler(s): RT Jeyson(R)(M), [facility]: Normal Exam Reading location: [facility] BI-RADS: 1 Negative us Boom Ram PAC IMG MAMMO ORDERABLES Final R esult * HM COLONOSCOPY (12/29/2014) Nora Haywood MD PROCEDURE/MINOR SURGICA L ORDERABLES Final Result from Last 3 Months or Most Recently Relevant to Health Maintenance Insurance [place]ID [place] Member Subscriber Plan / Payer (Ef fective 2022-Present) Name:OropezaNirali Relation to Subscriber:Self Name:OropezaNirali Payer ID:[id number] Group ID:Not on file Type:Not on file Address: [address] [id number] MEDICARE C [facility] MEDICARE C [employer] on file Care Teams Vmware Systems Administrator Relationship Specialty Start Date End Date Boom Ram, PAC [address] [place] [address] PCP - General Physician Verifier 01/20/22 Rhonda Leblanc, FILLING HAULER, CONCRETE ENGINEERING TECHNICIAN Nurse Practitioner Advanced Practice Nurse 11/20/15 Leticia David MD [address] [phone] Consulting Physician Endocrinology 09/28/21
--- OUTSIDE RECORDS SUMMARY | 2025-01-09 09:33 | XMS_ITS | Clinical Summary ---
Author Organization [facility] Address [address] [place] [address] Phone Care Team Providers Care Registered Nurse Cardiac Telemetry Name Role Phone Robin Ahmadille DIRECTOR METABOLISM Primary Care Provider Allergies Active Allergy Reactions [...] on file Legal Sex Female 2:16 AM DESIGN AND SALES CONSULTANT Gender Identity Not on file Sexual Orientation Not on file Obstetrics History Last Filed Vital Signs Vital Sign Reading Time Taken Comments Blood Pressure 142/54 06/09/2017 1:26 PM CDT Pulse 76 06/09/2017 1:26 PM CDT Temperature - - Respiratory Rate - - Oxygen Saturation 99% 03/29/2012 8:08 AM DESIGN AND SALES CONSULTANT Inhaled Oxygen Concentration - - Weight 110.7 kg (244 lb) 07/14/2017 1:22 PM CDT Height 172.7 cm (5' 8) 05/21/2012 11:14 AM CDT Body Mass Index 37.1 05/21/2012 11:14 AM CDT Plan of Treatment Not on file Insurance [facility] Care Teams Registered Nurse Cardiac Telemetry Relationship Specialty Start Date End Date Robin Ahmadi NP PCP - General Nurse Practitioner 06/09/17
--- OUTSIDE RECORDS SUMMARY | 2025-01-09 09:33 | XMS_ITS | Encounter Summary ---
Author Organization [facility] Address [address] [facility] [place] [address] Phone Care Team Providers Care Council On Aging Director Name Role Phone Rhonda eLblanc MARGARITA, AUTOCAD Unavailable Dilan Moon MD Primary Care Provider [phone] Leticia David MD Unavailable Boom Ram Primary Care Provider [phone] Reason for Visit * Reason Comments Medication Refill Encounter Details Date Type Department Care Team (Late st Contact Info) Description 02/20/2020 Refill [facility] Oncology Services [address] [place] [address] Lorenzo Naylor MD [address] [place] [address] Medication Refill Social History Tobacco [...] COVID-19? No / Unsure 02/10/2020 11:38 AM GRAPE PICKER documented as of this encounter Miscellaneous Notes * Telephone Encounter - Dixie Cronin RN - 02/24/2020 10:24 AM GRAPE PICKER Refilled Ferrous Sulfate E PICKER documented in this encounter Plan of Treatment Not on file documented as of this encounter Visit Diagnoses Diagnosis Iron deficiency anemia, unspecified iron deficiency anemia type documented in this encounter Additional Health Concerns Assessment Noted Time PHQ-9 Depression Total Score: 0 09/17/19 17 1:00 PM CDT documented as of this encounter Care Teams Council On Aging Director Relationship Specialty Start Date End Date Dilan Moon MD PCP - General Sports Medicine 08/08/19 01/19/22 Boom Ram, PAC [address] [place] [address] PCP - General Physician Rx Specialist 01/20/22 Rhonda Leblanc, BUSINESS SYSTEMS ADVISOR, AUTOCAD Nurse Practitioner Advanced Practice Nurse 11/20/15 Leticia David MD [address] [phone] Consulting Physician Endocrinology 09/28/21 documented as of this encounter
--- OUTSIDE RECORDS SUMMARY | 2025-01-09 09:33 | XMS_ITS | Encounter Summary ---
Author Organization [facility] Address [address] [facility] [place] [address] Phone Care Team Providers Care Cotton Picking Machine Operator Name Role Phone Benji Rhonda Seymour APRN, GREGG Unavailable Leticia David MD Unavailable Boom Ram Primary Care Provider Reason for Visit * Reason Comments Medication Refill Encounter Details Date Type Department Care Team (Late st Contact Info) Description 07/14/2023 Refill [facility] - Primary Care - [place] [address] [place] [address] Boom Ram PAC [address] [place] [address] Medication Refill Social History Tobacco [...] Dept 10/03/22 Office Visit Abel Pope MD [facility] 07/20/22 Office Visit Boom Ram PAC [facility] Showing recent visits within past 365 [...] Depression Total Score: 0 01/21/20 2:00 PM MUFFLER HAND documented as of this encounter Care Teams Cotton Picking Machine Operator Relationship Specialty Start Date End Date Boom Ram PAC [address] [place] [address] PCP - General Physician Salvage Determiner 01/20/22 Rhonda Leblanc, MARGARITA, MORTGAGE UNDERWRITER Nurse Practitioner Advanced Practice Nurse 11/20/15 Leticia David MD [address] [phone] Consulting Physician Endocrinology 09/28/21 documented as of this encounter
--- OUTSIDE RECORDS SUMMARY | 2025-01-09 09:33 | XMS_ITS | Encounter Summary ---
Author Organization [facility] Address [address] [facility] [place] [address] Phone Care Team Providers Care Parquetry Layer Name Role Phone Benji Rhonda Seymour APRN, GREGG Unavailable Leticia David MD Unavailable Boom Ram Primary Care Provider [phone] Reason for Visit * Reason Comments Medication Refill Encounter Details Date Type Department Care Team (Late st Contact Info) Description 08/23/2022 Refill [facility] - Primary Care - [place] [address] [place] [address] Boom Ram PAC [address] [place] [address] Medication Refill Social History Tobacco [...] Medical Center 06/09/22 Office Visit Boom Ram [facility] 05/19/22 Office Visit Boom Ram [facility] 01/20/22 Office Visit Boom Ram [facility] Showing recent visits within past 365 [...] Provider Dept 07/20/22 Office Visit Boom Ram, [facility] 06/09/22 Office Visit Boom Ram, [facility] 05/19/22 Office Visit Boom Ram, [facility] 01/20/22 Office Visit Boom Ram, [facility] Showing recent visits within past 365 [...] Provider Dept 07/20/22 Office Visit Boom Ram [facility] 06/09/22 Office Visit Boom Ram [facility] 05/19/22 Office Visit Boom Ram [facility] 01/20/22 Office Visit Boom Ram [facility] Showing recent visits within past 365 days [...] Depression Total Score: 0 01/21/20 2:00 PM SEXUAL ASSAULT SOCIAL WORKER documented as of this encounter Care Teams Parquetry Layer Relationship Specialty Start Date End Date Boom Ram, PAC [address] [place] [address] PCP - General Physician Director Of Home Care Hospice 01/20/22 Rhonda Leblanc APRN, CENTRAL OFFICE SUPERVISOR Nurse Practitioner Advanced Practice Nurse 11/20/15 Leticia David MD [address] [phone] Consulting Physician Endocrinology 09/28/21 documented as of this encounter
--- OUTSIDE RECORDS SUMMARY | 2025-01-09 09:33 | XMS_ITS | Encounter Summary ---
Author Organization [facility] Address [address] [place] [address] Phone Care Team Providers Care Him Analyst Name Role Phone Rhonda Leblanc MARGARITA, LICENSED HOME INSPECTOR Unavailable Dilan Moon MD Primary Care Provider [phone] Leticia David MD Unavailable Boom Ram Primary Care Provider [phone] Reason for Visit * Reason Comments Medication Refill Encounter Details Date Type Department Care Team (Late st Contact Info) Description 08/05/2020 [facility]ill [facility] Oncology Services [address] [place] [address] Lorenzo Naylor MD [address] [place] [address] Medication Refill Social History Tobacco [...] documented as of this encounter Care Teams Him Analyst Relationship Specialty Start Date End Date Dilan Moon MD PCP - General Sports Medicine 08/08/19 01/19/22 Boom Ram, PAC [address] [place] [address] PCP - General Physician Geoscience Laboratory Technician 01/20/22 Rhonda Leblanc, PLATE TAKE OUT WORKER, LICENSED HOME INSPECTOR Nurse Practitioner Advanced Practice Nurse 11/20/15 Leticia David MD [address] [phone] Consulting Physician Endocrinology 09/28/21 documented as of this encounter
--- OUTSIDE RECORDS SUMMARY | 2025-01-09 09:33 | XMS_ITS | Clinical Summary ---
Author Organization [facility] Address [address] [place] [address] Care Team Providers Care Book Mender Name Role Phone Martha Gray MD Primary Care Provider [phone] Source Comments [facility],non-owned Affiliates and Associated Physician Practices is amultiple site organization consisting of ambulatory clinics and hospital sitesin [place], [place], [place] and [place]. This disclosure is being madepursuant to the Care Everywhere program and may not contain all information available regarding this patient. Last updated 17.[facility] Allergies No known active allergies Medications * [...] on file Legal Sex Female 5:22 PM PORCELAIN MIXER Gender Identity Not on file Sexual Orientation [...] BUN 10 7 - 26 mg/dL [facility] Creatinine 0.7 0.6 - 1.2 mg/dL [facility] Sodium 139 136 - 145 mmol/L [facility] Potassium 4.4 3.5 - 4.5 mmol/L [facility] Chloride 104 98 - 107 mmol/L [facility] CO2 25 22 - 29 mmol/L [facility] Glucose 113 70 - 115 mg/dL [facility] Calcium 9.5 8.4 - 10.2 mg/dL [facility] Anion Gap 14 8 - 18 [facility] BUN/Creatinine Ratio 14 7 - 23 [facility] Osmolality Calculated 288 270 - 300 mOsm/kg [facility] eGFR >60 >60 mL/min/1.7 3 m2 [facility] Blood specimen (specimen) BLOOD SPECIMEN / Unknown 06/14/2016 10:00 AM CDT 06/14/2016 10:57 AM CDT Leonor Magdalenoebenezerclaus MEDICAL TECHNOLOGIST HEMATOLOGY-DIGITAL CONTENT SPECIALIST LAB - CHEMISTRY O RDERABLES Final Result Performing Organization Address City/State/[facility] Co de Phone Number [facility] [address] [phone] from Last 3 Months or Most Recently Relevant to Health Maintenance Insurance AETNA MEDICARE [place] [facility] MEDICARE MEDICAID - [facility] AETNA MEDICARE [place] - [place] AET MEDICARE [facility] [place]ICAID [place] Member Subscriber Plan / Payer (Ef fective 2023-Present) Name:Nirali Oropeza Relation to Subscriber:Self Name:Nirali Oropeza Payer ID:Not on file Group ID:Not on file Type:Medicaid [place] Address: [place] [id number] [place] Member Subscriber Plan / Payer (Ef fective 2023-Present) Name:Nirali Oropeza Relation to Subscriber:Self Name:Nirali Oropeza Payer ID:Not on file Group ID:Not on file Type:Medicaid [place] Address: [place] [id number] [facility] AETNA MEDICARE [place] MEDICARE ADV [facility] MEDICARE ADV MEDICAID - [place] Care Teams Book Mender Relationship Specialty Start Date End Date Martha Gray MD PCP - General 05/04/18
--- OUTSIDE RECORDS SUMMARY | 2025-01-09 09:33 | XMS_ITS | Encounter Summary ---
Author Organization [facility] Address [address] [place] [address] Phone Care Team Providers Care Apprentice Painter Hand Name Role Phone Benji Rhonda Seymour APRN, GREGG Unavailable Leticia David MD Unavailable Boom Ram Primary Care Provider [phone] Reason for Visit * Reason Comments Medication Refill Encounter Details Date Type Department Care Team (Late st Contact Info) Description 10/26/2022 Refill [facility] - Primary Care - [place] [address] [place] [address] Boom Ram PAC [address] [place] [address] Medication Refill Social History Tobacco [...] Total Score: 0 01/21/20 22 2:00 PM CASE MANAGEMENT SOCIAL WORKER documented as of this encounter Care Teams Apprentice Painter Hand Relationship Specialty Start Date End Date Boom Ram, ALEXANDRA [address] [place] [address] PCP - General Physician Appliance Tester 01/20/22 Rhonda Leblanc, PUG MACHINE OPERATOR, CASE AIDE Nurse Practitioner Advanced Practice Nurse 11/20/15 Leticia David MD [address] [phone] Consulting Physician Endocrinology 09/28/21 documented as of this encounter
--- OUTSIDE RECORDS SUMMARY | 2025-01-09 09:33 | XMS_ITS | Encounter Summary ---
Author Organization [facility] Address [address] [facility] [place] [address] Phone Care Team Providers Care Membership Sales Advisor Name Role Phone Benji Rhonda Seymour APRN, GREGG Unavailable Leticia David MD Unavailable Boom Ram Primary Care Provider Reason for Visit * Reason Comments Medication Refill Encounter Details Date Type Department Care Team (Late st Contact Info) Description 03/23/2023 Refill [facility] - Primary Care - [place] [address] [place] [address] Boom aRm PAC [address] [place] [address] Medication Refill Social History Tobacco [...] Depression Total Score: 0 01/21/20 2:00 PM MOBILE APPLICATION DEVELOPER documented as of this encounter Care Teams Membership Sales Advisor Relationship Specialty Start Date End Date Boom Ram, PAC [address] [place] [phone] PCP - General Physician Conduit Bender 01/20/22 Rhonda Leblanc, SPREADER BOX OPERATOR, STEEL BARREL REAMER Nurse Practitioner Advanced Practice Nurse 11/20/15 Leticia David MD [address] [phone] Consulting Physician Endocrinology 09/28/21 documented as of this encounter
--- OUTSIDE RECORDS SUMMARY | 2025-01-09 09:33 | XMS_ITS | Encounter Summary ---
Author Organization [facility] Address [address] [place] [address] Phone Care Team Providers Care Emt Intermediate Name Role Phone BenjiRhonda nicholson Lion AVILA, ELECTRIC GOLF CART REPAIRER Unavailable Leticia David MD Unavailable Boom Ram [facility] Primary Care Provider [phone] Reason for Visit * Reason Comments Medication Refill Encounter Details Date Type Department Care Team (Late st Contact Info) Description 10/16/2022 Refill [facility] - Primary Care - [place] [address] [place] [address] Abel Pope MD [address] [place] [address] Medication Refill Social History Tobacco [...] Depression Total Score: 0 01/21/20 2:00 PM FLOATER OPERATOR documented as of this encounter Care Teams Emt Intermediate Relationship Specialty Start Date End Date Boom aRm PAC [address] [place] [address] PCP - General Physician Film Historian 01/20/22 Rhonda Leblanc, INSTRUMENT MAKER AND REPAIRER, ELECTRIC GOLF CART REPAIRER Nurse Practitioner Advanced Practice Nurse 11/20/15 Leticia David MD [address] [phone] Consulting Physician Endocrinology 09/28/21 documented as of this encounter
--- OUTSIDE RECORDS SUMMARY | 2025-01-09 09:33 | XMS_ITS | Encounter Summary ---
Author Organization [facility] Address [address] [facility] [place] [address] Phone Care Team Providers Care General Manager Food Name Role Phone Benji Rhonda Seymour APRN, GREGG Unavailable Leticia David MD Unavailable Boom Ram Primary Care Provider Reason for Visit * Reason Comments Medication Refill Encounter Details Date Type Department Care Team (Late st Contact Info) Description 06/29/2022 Refill [facility] - Primary Care - [place] [address] [place] [address] Boom Ram PAC [address] [place] [address] Medication Refill Social History Tobacco [...] Depression Total Score: 0 01/21/20 2:00 PM HUMAN RESOURCE ADVISER documented as of this encounter Care Teams General Manager Food Relationship Specialty Start Date End Date Boom Ram PAC [address] [place] [address] PCP - General Physician Billet Heater Operator 01/20/22 Rhonda Leblanc, REAL ESTATE ASSISTANT, CATERING COOK Nurse Practitioner Advanced Practice Nurse 11/20/15 Leticia David MD [address] [phone] Consulting Physician Endocrinology 09/28/21 documented as of this encounter
== END 2025-01-09 09:02 | disposition home or self-care (01) ==
PROVIDERS: PCP Family Medicine; Visit Provider Student in an Organized Health Care Education/Training Program
DX: R53.83 Other fatigue (principal); I25.9 Chronic ischemic heart disease, unspecified
CPT/HCPCS: 78452; 93017; A9502; J2785

== ENCOUNTER 2025-01-17 11:43 | Outpatient (CLI) | payer MEDICARE, SELFPAY ==
--- OUTSIDE RECORDS SUMMARY | 2025-01-17 12:18 | XMS_ITS | Encounter Summary ---
Author Organization [facility] Address [address] [place] [address] Phone Care Team Providers Care Daily Release And Dupe Printer Name Role Phone BenjiAnnelleonardo Seymour APRN, GREGG Unavailable Leticia David MD Unavailable Boom Ram Primary Care Provider Reason for Visit * Reason Comments Medication Refill Encounter Details Date Type Department Care Team (Late st Contact Info) Description 08/23/[address] [facility] - Primary Care - [place] [address] [place] [address] Boom Ram PAC [address] [place] [address] Medication Refill Social History Tobacco [...] Dept 07/20/22 Office Visit Boom Ram PAC [facility] 06/09/22 Office Visit Boom Ram PAC [facility] 05/19/22 Office Visit Boom Ram PAC [facility] 01/20/22 [facility] [...] Depression Total Score: 0 01/21/20 2:00 PM SHIP CEILER documented as of this encounter Care Teams Daily Release And Dupe Printer Relationship Specialty Start Date End Date Boom Ram, PAC [address] [place] [address] PCP - General Physician Aquatics Manager 01/20/22 Rhonda Leblanc, DRUGLESS PHYSICIAN, COMMERCIAL SERVICE TECHNICIAN Nurse Practitioner Advanced Practice Nurse 11/20/15 Leticia David MD [address] [phone] Consulting Physician Endocrinology 09/28/21 documented as of this encounter
--- OUTSIDE RECORDS SUMMARY | 2025-01-17 12:18 | XMS_ITS | Clinical Summary ---
Author Organization [facility] Address [address] [place] [address] Care Team Providers Care Assistant Speech Language Pathologist Name Role Phone Martha Gray MD Primary Care Provider [phone] Source Comments [facility],non-owned Affiliates and Associated Physician Practices is amultiple site organization consisting of ambulatory clinics and hospital sitesin [place], [place], [place] and [place]. This disclosure is being madepursuant to the Care Everywhere program and may not contain all information available regarding this patient. Last updated 17.[facility] Allergies No known active allergies Medications * [...] on file Legal Sex Female 5:22 PM UPHOLSTERY RESTORER Gender Identity Not on file Sexual Orientation [...] CDT) BUN 10 7 - 26 mg/dL [facility] Creatinine 0.7 0.6 - 1.2 mg/dL [facility] Sodium 139 136 - 145 mmol/L [facility] Potassium 4.4 3.5 - 4.5 mmol/L [facility] Chloride 104 98 [...] Osmolality Calculated 288 270 - 300 mOsm/kg [facility] eGFR >60 >60 mL/min/1.7 3 m2 [facility] Blood specimen (specimen) BLOOD SPECIMEN / Unknown 06/14/2016 10:00 AM CDT 06/14/2016 10:57 AM CDT Leonor Magdalenoebenezerclaus RAND CEMENTER-WORSHIP PASTOR LAB - CHEMISTRY O RDERABLES Final Result Performing Organization Address City/State/[facility] Co de Phone Number [facility] [address] [phone] from Last 3 Months or Most Recently Relevant to Health Maintenance Insurance AETNA MEDICARE [place] - [place] [facility] MEDICARE MEDICAID - [facility] AETNA MEDICARE [place] - [place] AET MEDICARE [facility] MEDICAID - [place] Member Subscriber Plan / Payer (Ef fective 2023-Present) Name:Nirali Oropeza Relation to Subscriber:Self Name:Nirali Oropeza Payer ID:Not on file Group ID:Not on file Type:Medicaid [place] Address: [place] [id number] [place] Member Subscriber Plan / Payer (Ef fective 2023-Present) Name:Nirali Oropeza Relation to Subscriber:Self Name:Nirali Oropeza Payer ID:Not on file Group ID:Not on file Type:Medicaid [place] Address: [place] [phone] [facility] AETNA MEDICARE ADV MED[place]ID [place] MEDICARE ADV [facility] MEDICARE ADV MED[place]ID [place] Care Teams Assistant Speech Language Pathologist Relationship Specialty Start Date End Date Martha Gray MD PCP - General 05/04/18
--- OUTSIDE RECORDS SUMMARY | 2025-01-17 12:18 | XMS_ITS | Encounter Summary ---
Author Organization [facility] Address [address] [place] [address] Phone Care Team Providers Care Air Pumper Name Role Phone BenjiAnnelleonardo Semyour APRN, GREGG Unavailable Leticia David MD Unavailable Boom Ram Primary Care Provider Reason for Visit * Reason Comments Medication Refill Encounter Details Date Type Department Care Team (Late st Contact Info) Description 03/23/2023 Refill [facility] - Primary Care - [place] [address] [place] [address] Boom Ram PAC [address] [place] [address] Medication Refill Social History Tobacco [...] Depression Total Score: 0 01/21/20 2:00 PM CHILD PSYCHOLOGY TEACHER documented as of this encounter Care Teams Air Pumper Relationship Specialty Start Date End Date Boom Ram, PAC [address] [place] [address] PCP - General Physician Internship Coordinator 01/20/22 Rhonda Leblanc APRN, VENDER Nurse Practitioner Advanced Practice Nurse 11/20/15 Leticia David MD [address] [phone] Consulting Physician Endocrinology 09/28/21 documented as of this encounter
--- OUTSIDE RECORDS SUMMARY | 2025-01-17 12:18 | XMS_ITS | Encounter Summary ---
Author Organization [facility] Address [address] [place] [address] Phone Care Team Providers Care Financial Representative Name Role Phone BenjiAnnelleonardo Seymour APRN, GREGG Unavailable Leticia David MD Unavailable Boom Ram Primary Care Provider [phone] Reason for Visit * Reason Comments Medication Refill Encounter Details Date Type Department Care Team (Late st Contact Info) Description 06/29/2022 Refill [facility] - Primary Care - [place] [address] [place] [address] Boom Ram PAC [address] [place] [address] Medication Refill Social History Tobacco [...] Depression Total Score: 0 01/21/20 2:00 PM SHERIFF'S DETECTIVE documented as of this encounter Care Teams Financial Representative Relationship Specialty Start Date End Date Boom Ram PAC [address] [place] [address] PCP - General Physician Transportation Program Director 01/20/22 Rhonda Leblanc, EAR SPECIALIST, 4TH GRADE MATH TEACHER Nurse Practitioner Advanced Practice Nurse 11/20/15 Leticia David MD [address] [phone] Consulting Physician Endocrinology 09/28/21 documented as of this encounter
--- OUTSIDE RECORDS SUMMARY | 2025-01-17 12:18 | XMS_ITS | Encounter Summary ---
Author Organization [facility] Address [address] [place] [address] Phone Care Team Providers Care Pharmacy Stock Clerk Name Role Phone BenjiAnnelleonardo Seymour APRN, GREGG Unavailable Leticia David MD Unavailable Boom Ram Primary Care Provider [phone] Reason for Visit * Reason Comments Medication Refill Encounter Details Date Type Department Care Team (Late st Contact Info) Description 10/26/2022 Refill [facility] - Primary Care - [place] [address] [place] [address] Boom Ram PAC [address] [place] [address] Medication Refill Social History Tobacco [...] Total Score: 0 01/21/20 22 2:00 PM PULVERIZING AND SIFTING OPERATOR documented as of this encounter Care Teams Pharmacy Stock Clerk Relationship Specialty Start Date End Date oBom Ram, PAC [address] [place] [address] PCP - General Physician Personnel Arbitrator 01/20/22 Rhonda Leblanc, PT SKILLED, FIELD SALES ASSOCIATE Nurse Practitioner Advanced Practice Nurse 11/20/15 Leticia David MD [address] [phone] Consulting Physician Endocrinology 09/28/21 documented as of this encounter
--- OUTSIDE RECORDS SUMMARY | 2025-01-17 12:18 | XMS_ITS | Encounter Summary ---
Author Organization [facility] Address [address] [place] [address] Phone Care Team Providers Care Human Resources Supervisor Name Role Phone Rhonda Leblanc Lion AVILA, SILO OPERATOR Unavailable Leticia David MD Unavailable Boom Ram [facility] Primary Care Provider [phone] Reason for Visit * Reason Comments Medication Refill Encounter Details Date Type Department Care Team (Late st Contact Info) Description 10/16/2022 Refill [facility] - Primary Care - [place] [address] [place] [address] Abel Pope MD [address] [place] [address] Medication Refill Social History Tobacco [...] Total Score: 0 01/21/20 2:00 PM CHILDREN'S INSTITUTION ATTENDANT documented as of this encounter Care Teams Human Resources Supervisor Relationship Specialty Start Date End Date Boom Ram PAC [address] [place] [address] PCP - General Physician Bottle Packing Machine Cleaner 01/20/22 Rhonda Leblanc, CIRCUS LABORER, SILO OPERATOR Nurse Practitioner Advanced Practice Nurse 11/20/15 Leticia David MD [address] [phone] Consulting Physician Endocrinology 09/28/21 documented as of this encounter
--- OUTSIDE RECORDS SUMMARY | 2025-01-17 12:19 | XMS_ITS | Encounter Summary ---
Author Organization [facility] Address [address] [place] [address] Phone Care Team Providers Care Button Decorating Machine Operator Name Role Phone Rhonda Leblanc APRN, GARAGE ATTENDANT Unavailable Dilan Moon MD Primary Care Provider [phone] Leticia David MD Unavailable Boom Ram Primary Care Provider [phone] Reason for Visit * Reason Comments Medication Refill Encounter Details Date Type Department Care Team (Late st Contact Info) Description 02/20/2020 Refill [facility] Oncology Services [address] [place] [address] Lorenzo Naylor MD [address] [place] [address] Medication Refill Social History Tobacco [...] COVID-19? No / Unsure 02/10/2020 11:38 AM FLUID POWER MECHANIC documented as of this encounter Miscellaneous Notes * Telephone Encounter - Dixie Cronin RN - 02/24/2020 10:24 AM FLUID POWER MECHANIC Refilled Ferrous Sulfate D POWER MECHANIC documented in this encounter Plan of Treatment Not on file documented as of this encounter Visit Diagnoses Diagnosis Iron deficiency anemia, unspecified iron deficiency anemia type documented in this encounter Additional Health Concerns Assessment Noted Time PHQ-9 Depression Total Score: 0 09/17/19 17 1:00 PM CDT documented as of this encounter Care Teams Button Decorating Machine Operator Relationship Specialty Start Date End Date Dilan Moon MD PCP - General Sports Medicine 08/08/19 01/19/22 Boom Ram PAC [address] [place] [address] PCP - General Physician Communications Intern 01/20/22 Rhonda Leblanc, SOLID WASTE COLLECTION WORKER, GARAGE ATTENDANT Nurse Practitioner Advanced Practice Nurse 11/20/15 Leticia David MD [address] [phone] Consulting Physician Endocrinology 09/28/21 documented as of this encounter
--- OUTSIDE RECORDS SUMMARY | 2025-01-17 12:19 | XMS_ITS | Encounter Summary ---
Author Organization [facility] Address [address] [place] [address] Phone Care Team Providers Care Gypsum Roofer Name Role Phone Rhonda Leblanc APRN, SURVEILLANCE OFFICER Unavailable Dilan Moon MD Primary Care Provider [phone] Leticia David MD Unavailable Boom Ram Primary Care Provider Reason for Visit * Reason Comments Medication Refill Encounter Details Date Type Department Care Team (Late st Contact Info) Description 08/05/2020 Refill [facility] Oncology Services [address] [place] [address] Lorenzo Naylor MD [address] [place] [address] Medication Refill Social History Tobacco [...] documented as of this encounter Care Teams Gypsum Roofer Relationship Specialty Start Date End Date Dilan Moon MD PCP - General Sports Medicine 08/08/19 01/19/22 Boom Ram, PAC [address] [place] [address] PCP - General Physician Impregnator Operator 01/20/22 Rhonda Leblanc, LICENSED ESTHETICIAN, SURVEILLANCE OFFICER Nurse Practitioner Advanced Practice Nurse 11/20/15 Leticia David MD [address] [phone] Consulting Physician Endocrinology 09/28/21 documented as of this encounter
--- OUTSIDE RECORDS SUMMARY | 2025-01-17 12:19 | XMS_ITS | Encounter Summary ---
Author Organization [facility] Address [address] [place] [address] Phone Care Team Providers Care Spark Tester Name Role Phone BenjiAnnelleonardo Seymour APRN, GREGG Unavailable Leticia David MD Unavailable Boom Ram Primary Care Provider Reason for Visit * Reason Comments Medication Refill Encounter Details Date Type Department Care Team (Late st Contact Info) Description 07/20/2023 Refill [facility] - Primary Care - Felix [address] [place] [address] Boom Ram PAC [address] [place] [address] Medication Refill Social History Tobacco [...] Depression Total Score: 0 01/21/20 2:00 PM ECONOMICS CONSULTANT documented as of this encounter Care Teams Spark Tester Relationship Specialty Start Date End Date Boom Ram PAC [address] [place] [address] PCP - General Physician Front End Ui Developer 01/20/22 Rhonda Leblanc APRN, SHOE REPAIRER Nurse Practitioner Advanced Practice Nurse 11/20/15 Leticia David MD [address] [phone] Consulting Physician Endocrinology 09/28/21 documented as of this encounter
--- OUTSIDE RECORDS SUMMARY | 2025-01-17 12:19 | XMS_ITS | Clinical Summary ---
Author Organization [facility] 1 [employer] [address] [employer] Address [address] [place] [address] Phone Care Team Providers Care Retail And Restaurant Name Role Phone Robin Ahmadille SHIP WASHER Primary Care Provider Allergies Active Allergy Reactions [...] on file Legal Sex Female 2:16 AM IRON ASSORTER Gender Identity Not on file Sexual Orientation Not on file Last Filed Vital Signs Vital Sign Reading Time Taken Comments Blood Pressure 142/54 06/09/2017 1:26 PM CDT Pulse 76 06/09/2017 1:26 PM CDT Temperature - - Respiratory Rate - - Oxygen Saturation 99% 03/29/2012 8:08 AM IRON ASSORTER Inhaled Oxygen Concentration - - Weight 110.7 kg (244 lb) 07/14/2017 1:22 PM CDT Height 172.7 cm (5' 8) 05/21/2012 11:14 AM CDT Body Mass Index 37.1 05/21/2012 11:14 AM CDT Plan of Treatment Not on file Insurance [facility] Care Teams Retail And Restaurant Relationship Specialty Start Date End Date Robin Ahmadi NP PCP - General Nurse Practitioner 06/09/17
--- OUTSIDE RECORDS SUMMARY | 2025-01-17 12:19 | XMS_ITS | Encounter Summary ---
Author Organization [facility] Address [address] [place] [address] Phone Care Team Providers Care Tai Chi Instructor Name Role Phone BenjiAnnelleonardo Seymour APRN, GREGG Unavailable Leticia David MD Unavailable Boom Ram Primary Care Provider Reason for Visit * Reason Comments Medication Refill Encounter Details Date Type Department Care Team (Late st Contact Info) Description 07/14/2023 Refill [facility] - Primary Care - Felix [address] [place] [address] Boom Ram PAC [address] [place] [address] Medication Refill Social History Tobacco [...] Dept 10/03/22 Office Visit Abel Pope MD [facility] 07/20/22 Office Visit Boom Ram PAC [facility] Showing recent visits within past 365 [...] Depression Total Score: 0 01/21/20 2:00 PM TOMBSTONE POLISHER documented as of this encounter Care Teams Tai Chi Instructor Relationship Specialty Start Date End Date Boom Ram PAC [address] [place] [address] PCP - General Physician Content Engineer 01/20/22 Rhonda Leblanc APRN, STEWARD/STEWARDESS DINING ROOM Nurse Practitioner Advanced Practice Nurse 11/20/15 Leticia David MD [address] [phone] Consulting Physician Endocrinology 09/28/21 documented as of this encounter
--- OUTSIDE RECORDS SUMMARY | 2025-01-17 12:19 | XMS_ITS | Clinical Summary ---
Author Organization [facility] Address [address] [facility], [address] [address] Phone Care Team Providers Care Assistant Speech Language Pathologist Name Role Phone Rhonda Leblanc APRN, GREGG Unavailable Leticia David MD Unavailable Boom Ram PAC Primary Care Provider [phone] Allergies No known active allergies Medications aspirin [...] Lnp-s, Pf, 3 0 Mcg/0.3 Ml Dose ([employer] 06/29/2020,06/08/2020 Influenza Vaccine 02/26/2013, 2,11/22/2010,2009,12/29/2008,01/29/2008,01/11/2007 Influenza Vaccine [...] CAD W AWILDA Routine 03/11/2022 3:35 PM STEAM STATION SUPERVISOR Encounter for screening mammogram for malignant neoplasm of breast HM COLONOSCOPY Routine 12/29/2014 from Last 3 Months or Most Recently Relevant to Health Maintenance Results * PILAR SCREENING BILATERAL DIGITAL W CAD W AWILDA (03/11/2022 3:35 PM STEAM STATION SUPERVISOR) Anatomical Region Laterality Modality breast Bilateral Mammography 03/11/2022 2:58 PM STEAM STATION SUPERVISOR Narrative 03/15/2022 8:16 AM STEAM STATION SUPERVISOR - PILAR SCREENING BILATERAL DIGITAL W CAD [...] to exams dated: 10/09/2019, 09/04/2017, and 10/04/2016 [facility]. BREAST TISSUE:The tissue of both [...] signed by: Cory Hassan M.D. /penannette:03/11/2022 18:49:58 Bull Rider(s): RT Jeyson(Marcio)(M), [facility] letter sent: Normal Exam Reading location: [facility] BI-RADS: 1 Negative Procedure Note [...] exams dated: 10/09/2019, 09/04/2017, and 10/04/2016 [facility]. BREAST TISSUE:The tissue of both breasts [...] exam. Electronically signed by: Cory quinonez/diana:03/11/2022 18:49:58 Bull Rider(s): RT Jeyson(R)(M), [facility]: Normal Exam Reading location: [facility] BI-RADS: 1 Negative us Boom [...] ID:Not on file Type:Not on file Address: [address] [id number] [facility]IC[facility] MEDIC[facility] C [employer] on file Care Teams Assistant Speech Language Pathologist Relationship Specialty Start Date End Date Boom Ram, PAC [address] [place] [address] PCP - General Physician Flexographic Printing Press Operator 01/20/22 Rhonda Leblanc, MEAT AND POULTRY INSPECTOR, COFFEE SHOP MANAGER Nurse Practitioner Advanced Practice Nurse 11/20/15 Leticia David MD [address] [phone] Consulting Physician Endocrinology 09/28/21
[2025-01-17 12:56] LABS: Hematocrit 34.0 % (37.0-47.0); Hemoglobin 10.8 g/dL (12.0-15.0); Immature Granulocyte Percent A 0.0 % (0-0.5); Lymphocytes Absolute Auto 1.75 K/mm3 (0.9-3.2); Mean Corpuscular HGB Conc 31.8 g/dl (32-36); Mean Corpuscular Hemoglobin 30.1 pg (26-34); Mean Corpuscular Volume 94.7 fl (80-100); Nucleated Red Blood Cells Absolute Auto 0.000 K/mm3 (0.0-0.012); Nucleated Red Blood Cells Perc 0.0 % (0.0-0.2); Platelet Count Result 225 k/mm3 (150-375); Red Blood Count 3.59 M/mm3 (4.2-5.4); White Blood Count 4.3 K/mm3 (4.5-10.0)
== END 2025-01-17 11:44 | disposition home or self-care (01) ==
PROVIDERS: PCP Family Medicine; Visit Provider Student in an Organized Health Care Education/Training Program
DX: D50.9 Iron deficiency anemia, unspecified (principal)
CPT/HCPCS: 36415; 85025

== ENCOUNTER 2025-01-20 14:52 | Outpatient (CLI) | payer MEDICARE, SELFPAY ==
--- OUTSIDE RECORDS SUMMARY | 2025-01-20 14:54 | XMS_ITS | Encounter Summary ---
Author Organization [facility] Address [address] [place] [address] Phone Care Team Providers Care Top Screw Name Role Phone BenjiAnnelleonardo Seymour APRN, GREGG Unavailable Leticia David MD Unavailable Boom Ram Primary Care Provider Reason for Visit * Reason Comments Medication Refill Encounter Details Date Type Department Care Team (Late st Contact Info) Description 10/26/2022 Refill [facility] - Primary Care - Felix [address] [place] [address] Boom Ram PAC [address] [place] [address] Medication Refill Social History Tobacco [...] Total Score: 0 01/21/20 22 2:00 PM V BELT MOLD ASSEMBLER AND CURER documented as of this encounter Care Teams Top Screw Relationship Specialty Start Date End Date Boom Ram, PAC [address] [place] [address] PCP - General Physician Mail Processing Equipment Mechanic 01/20/22 Rhonda Leblanc, PIECER UP, HIGH SCHOOL SCIENCE TUTOR Nurse Practitioner Advanced Practice Nurse 11/20/15 Leticia David MD [address] [phone] Consulting Physician Endocrinology 09/28/21 documented as of this encounter
--- OUTSIDE RECORDS SUMMARY | 2025-01-20 14:54 | XMS_ITS | Encounter Summary ---
Author Organization [facility] Address [address] [place] [address] Phone Care Team Providers Care Chairman & Ceo Name Role Phone BenjiAnnelleonardo Seymour APRN, GREGG Unavailable Leticia David MD Unavailable Boom Ram Primary Care Provider Reason for Visit * Reason Comments Medication Refill Encounter Details Date Type Department Care Team (Late st Contact Info) Description 06/29/2022 Refill [facility] - Primary Care - Felix [address] [place] [address] Boom Ram PAC [address] [place] [address] Medication Refill Social History Tobacco [...] Depression Total Score: 0 01/21/20 2:00 PM ARC TRIMMER documented as of this encounter Care Teams Chairman & Ceo Relationship Specialty Start Date End Date Boom Ram PAC [address] [place] [address] PCP - General Physician Portal Architect 01/20/22 Rhonda Leblanc, TUBE MAKING MACHINE OPERATOR, SLACKMAN Nurse Practitioner Advanced Practice Nurse 11/20/15 Leticia David MD [address] [phone] Consulting Physician Endocrinology 09/28/21 documented as of this encounter
--- OUTSIDE RECORDS SUMMARY | 2025-01-20 14:54 | XMS_ITS | Clinical Summary ---
Author Organization [facility] Address [address] [facility], [address] [address] Phone Care Team Providers Care Clin Nurse Name Role Phone Rhonda Leblanc APRN, GREGG [...] Lnp-s, Pf, 3 0 Mcg/0.3 Ml Dose ([employer]) 06/29/2020,06/08/2020 Influenza Vaccine 02/26/2013, 2,11/22/2010,2009,12/29/2008,01/29/2008,01/11/2007 Influenza Vaccine [...] CAD W AWILDA Routine 03/11/2022 3:35 PM HOSPITAL RECEIVING CLERK Encounter for screening mammogram for malignant neoplasm of breast HM COLONOSCOPY Routine 12/29/2014 from Last 3 Months or Most Recently Relevant to Health Maintenance Results * PILAR SCREENING BILATERAL DIGITAL W CAD W AWILDA (03/11/2022 3:35 PM HOSPITAL RECEIVING CLERK) Anatomical Region Laterality Modality breast Bilateral Mammography 03/11/2022 2:58 PM HOSPITAL RECEIVING CLERK Narrative 03/15/2022 8:16 AM HOSPITAL RECEIVING CLERK - PILAR SCREENING BILATERAL DIGITAL W CAD [...] exams dated: 10/09/2019, 09/04/2017, and 10/04/2016 [facility]. BREAST TISSUE:The tissue of both breasts [...] signed by: Cory Hassan M.D. /penannette:03/11/2022 18:49:58 Information Technology Security Analyst(s): RT Jeyson(Marcio)(M), [facility] letter sent: Normal Exam Reading location: [facility] BI-RADS: 1 Negative Procedure Note Cory [...] exams dated: 10/09/2019, 09/04/2017, and 10/04/[address] [facility]. BREAST TISSUE:The tissue of both breasts is [...] exam. Electronically signed by: Cory quinonez/diana:03/11/2022 18:49:58 Information Technology Security Analyst(s): RT Jeyson(R)(M), [facility] sent: Normal Exam Reading location: [facility] BI-RADS: 1 Negative us Boom Ram [...] ID:Not on file Type:Not on file Address: [address] [id number] [facility] [employer] on file Care Teams Clin Nurse Relationship Specialty Start Date End Date Boom Ram, PAC [address] [place] [address] PCP - General Physician Eastern Philosophy Professor 01/20/22 Rhonda Leblanc, MOTOR COACH BUS DRIVER, COPY COORDINATOR Nurse Practitioner Advanced Practice Nurse 11/20/15 Leticia David MD [address] [phone] Consulting Physician Endocrinology 09/28/21
--- OUTSIDE RECORDS SUMMARY | 2025-01-20 14:54 | XMS_ITS | Encounter Summary ---
Author Organization [facility] Address [address] [place] [address] Phone Care Team Providers Care Md Do Resident Urgent Care Name Role Phone Rhonda Leblanc Lion AVILA, HIGH DENSITY PRESS LABORER Unavailable Leticia David MD Unavailable Boom Ram [facility] Primary Care Provider Reason for Visit * Reason Comments Medication Refill Encounter Details Date Type Department Care Team (Late st Contact Info) Description 10/16/2022 Refill [facility] - Primary Care - Felix [address] [place] [address] Abel Pope MD [address] [place] [address] Medication Refill Social History Tobacco [...] Depression Total Score: 0 01/21/20 2:00 PM GATE WATCH documented as of this encounter Care Teams Md Do Resident Urgent Care Relationship Specialty Start Date End Date Boom Ram PAC [address] [place] [address] PCP - General Physician Data Services Developer 01/20/22 Rhonda Leblanc, HOT TOP LINER, HIGH DENSITY PRESS LABORER Nurse Practitioner Advanced Practice Nurse 11/20/15 Leticia David MD [address] [phone] Consulting Physician Endocrinology 09/28/21 documented as of this encounter
--- OUTSIDE RECORDS SUMMARY | 2025-01-20 14:54 | XMS_ITS | Encounter Summary ---
Author Organization [facility] Address [address] [place] [address] Phone Care Team Providers Care Metal Gauge Maker Name Role Phone BenjiAnnelleonardo Seymour APRN, GREGG Unavailable Leticia David MD Unavailable Boom Ram Primary Care Provider Reason for Visit * Reason Comments Medication Refill Encounter Details Date Type Department Care Team (Late st Contact Info) Description 07/20/2023 Refill [facility] Medical [facility] - Primary Care - Felix [address] [place] [address] Boom Ram PAC [address] [place] [address] Medication Refill Social History Tobacco [...] Depression Total Score: 0 01/21/20 2:00 PM VICE PRESIDENT INDUSTRIAL RELATIONS documented as of this encounter Care Teams Metal Gauge Maker Relationship Specialty Start Date End Date Boom Ram PAC [address] [place] [address] PCP - General Physician Iron Bender 01/20/22 Rhonda Leblanc APRN, WEB PRODUCTION DESIGNER Nurse Practitioner Advanced Practice Nurse 11/20/15 Leticia David MD [address] [phone] Consulting Physician Endocrinology 09/28/21 documented as of this encounter
--- OUTSIDE RECORDS SUMMARY | 2025-01-20 14:54 | XMS_ITS | Encounter Summary ---
Author Organization [facility] Address [address] [place] [address] Phone Care Team Providers Care Student Services Vice President Name Role Phone Rhonda Leblanc APRN, WINDOWS SERVER ENGINEER Unavailable Dilan Moon MD Primary Care Provider [phone] Leticia David MD Unavailable Boom Ram Primary Care Provider [phone] Reason for Visit * Reason Comments Medication Refill Encounter Details Date Type Department Care Team (Late st Contact Info) Description 02/20/2020 Refill [facility] Oncology Services [address] [place] [address] Lorenzo Naylor MD [address] [place] [address] Medication Refill Social History Tobacco [...] COVID-19? No / Unsure 02/10/2020 11:38 AM SCREEN PRINTER documented as of this encounter Miscellaneous Notes * Telephone Encounter - Dixie Cronin RN - 02/24/2020 10:24 AM SCREEN PRINTER Refilled Ferrous Sulfate EN PRINTER documented in this encounter Plan of Treatment Not on file documented as of this encounter Visit Diagnoses Diagnosis Iron deficiency anemia, unspecified iron deficiency anemia type documented in this encounter Additional Health Concerns Assessment Noted Time PHQ-9 Depression Total Score: 0 09/17/19 17 1:00 PM CDT documented as of this encounter Care Teams Student Services Vice President Relationship Specialty Start Date End Date Dilan Moon MD PCP - General Sports Medicine 08/08/19 01/19/22 Boom Ram PAC [address] [place] [address] PCP - General Physician Third Hand 01/20/22 Rhonda Leblanc, CADDIE, WINDOWS SERVER ENGINEER Nurse Practitioner Advanced Practice Nurse 11/20/15 Leticia David MD [address] [phone] Consulting Physician Endocrinology 09/28/21 documented as of this encounter
--- OUTSIDE RECORDS SUMMARY | 2025-01-20 14:54 | XMS_ITS | Encounter Summary ---
Author Organization [facility] Address [address] [place] [address] Phone Care Team Providers Care Shirring Machine Operator Automatic Name Role Phone BenjiAnnelleonardo Seymour APRN, GREGG Unavailable Leticia David MD Unavailable Boom Ram Primary Care Provider Reason for Visit * Reason Comments Medication Refill Encounter Details Date Type Department Care Team (Late st Contact Info) Description 07/14/2023 Refill [facility] - Primary Care - Felix [address] [place] [address] Boom Ram PAC [address] [place] [address] Medication Refill Social History Tobacco [...] Dept 10/03/22 Office Visit Abel Pope MD [facility] 07/20/22 Office Visit Boom Ram PAC [facility] Showing recent visits within past [...] Depression Total Score: 0 01/21/20 2:00 PM PEDIATRIC ONCOLOGIST documented as of this encounter Care Teams Shirring Machine Operator Automatic Relationship Specialty Start Date End Date Boom Ram PAC [address] [place] [address] PCP - General Physician Explosive Ordnance Handler 01/20/22 Rhonda Leblanc APRN, SHIPPING AND RECEIVING MATERIAL HANDLER Nurse Practitioner Advanced Practice Nurse 11/20/15 Leticia David MD #[address] [phone] Consulting Physician Endocrinology 09/28/21 documented as of this encounter
--- OUTSIDE RECORDS SUMMARY | 2025-01-20 14:54 | XMS_ITS | Clinical Summary ---
Author Organization [facility] [address] Address [address] [place] [address] Phone Care Team Providers Care Clinical Researcher Name Role Phone Robin Ahmadille COMMUNITY HEALTH REPRESENTATIVE Primary Care Provider Allergies Active Allergy [...] on file Legal Sex Female 2:16 AM BUILDING EQUIPMENT OPERATOR Gender Identity Not on file Sexual Orientation Not on file Last Filed Vital Signs Vital Sign Reading Time Taken Comments Blood Pressure 142/54 06/09/2017 1:26 PM CDT Pulse 76 06/09/2017 1:26 PM CDT Temperature - - Respiratory Rate - - Oxygen Saturation 99% 03/29/2012 8:08 AM BUILDING EQUIPMENT OPERATOR Inhaled Oxygen Concentration - - Weight 110.7 kg (244 lb) 07/14/2017 1:22 PM CDT Height 172.7 cm (5' 8) 05/21/2012 11:14 AM CDT Body Mass Index 37.1 05/21/2012 11:14 AM CDT Plan of Treatment Not on file Insurance [facility] Care Teams Clinical Researcher Relationship Specialty Start Date End Date Robin Ahmadi NP PCP - General Nurse Practitioner 06/09/17
--- OUTSIDE RECORDS SUMMARY | 2025-01-20 14:54 | XMS_ITS | Clinical Summary ---
Author Organization [facility] Address [address] [place] [address] Care Team Providers Care Peat Shredder Tender Name Role Phone Martha Gray MD Primary Care Provider [phone] Source Comments [facility],non-owned Affiliates and Associated Physician Practices is amultiple site organization consisting of ambulatory clinics and hospital sitesin [place], [place], [place] and [place]. This disclosure is being madepursuant to the Care Everywhere program and may not contain all information available regarding this patient. 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 Gender Identity Not on file Sexual [...] CDT) BUN 10 7 - 26 mg/dL [facility] Creatinine 0.7 0.6 - 1.2 mg/dL [facility] Sodium 139 136 - 145 mmol/L [facility] Potassium 4.4 3.5 - 4.5 mmol/L [facility] Chloride 104 98 - 107 mmol/L [facility] CO2 25 22 - 29 mmol/L [facility] Glucose 113 70 - 115 mg/dL [facility] Calcium 9.5 8.4 - 10.2 mg/dL [facility] Anion Gap 14 8 - 18 [facility] BUN/Creatinine Ratio 14 7 - 23 [facility] Osmolality Calculated 288 270 - 300 mOsm/kg [facility] eGFR >60 >60 mL/min/1.7 3 m2 [facility] Blood specimen (specimen) BLOOD SPECIMEN / Unknown 06/14/2016 10:00 AM CDT 06/14/2016 10:57 AM CDT Leonor Magdalenoebenezerclaus PLUSH DRESSER-FILAMENT WOUND PARTS FABRICATOR LAB - CHEMISTRY O RDERABLES Final Result Performing Organization Address City/State/[facility] Co de Phone Number [facility] [address] [phone] from Last 3 Months or Most Recently Relevant to Health Maintenance Insurance [employer] MEDICARE [place] - [place] [facility] MEDICARE MEDICAID - [facility] AETNA MEDICARE ADV [place]ICAID [place] AET MEDICARE [facility] MEDICAID - [place] Member Subscriber Plan / Payer (Ef fective 2023-Present) Name:Nirali Oropeza Relation to Subscriber:Self Name:Nirali Oropeza Payer ID:Not on file Group ID:Not on file Type:Medicaid [place] Address: [place] [id number] MEDICAID [place] Member Subscriber Plan / Payer (Ef fective 2023-Present) Name:Nirali Oropeza Relation to Subscriber:Self Name:Nirali Oropeza Payer ID:Not on file Group ID:Not on file Type:Medicaid [place] Address: [place] [id number] [facility] MEDICARE [facility] AETNA MEDICARE ADV MED[place]ID [place]ETNA MEDICARE ADV [facility] MEDICARE ADV MEDICAID - [place] Care Teams Peat Shredder Tender Relationship Specialty Start Date End Date Martha Gray MD PCP - General 05/04/18
--- OUTSIDE RECORDS SUMMARY | 2025-01-20 14:54 | XMS_ITS | Encounter Summary ---
Author Organization [facility] Address [address] [place] [address] Phone Care Team Providers Care Marine Designer Name Role Phone BenjiAnnelleonardo Seymour APRN, GREGG Unavailable Leticia David MD Unavailable Boom Ram Primary Care Provider Reason for Visit * Reason Comments Medication Refill Encounter Details Date Type Department Care Team (Late st Contact Info) Description 08/23/2022 Refill [facility] - Primary Care - Felix [address] [place] [address] Boom Ram PAC [address] [place] [address] Medication Refill Social History Tobacco [...] Provider Dept 07/20/22 Office Visit Boom Ram, [facility] 06/09/22 Office Visit Boom Ram [facility] 05/19/22 Office Visit Boom Ram [facility] 01/20/22 Office Visit Boom Ram [facility] Showing recent visits within past 365 [...] Provider Dept 07/20/22 Office Visit Boom Ram, [facility] 06/09/22 Office Visit Boom Ram, [facility] 05/19/22 Office Visit Boom Ram [facility] 01/20/22 Office Visit Boom Ram [facility] Showing recent visits within past 365 [...] Dept 07/20/22 Office Visit Boom Ram PAC [facility] 06/09/22 Office Visit Boom Ram PAC [facility] 05/19/22 Office Visit Boom Ram PAC [facility] 01/20/22 Office Visit Boom Ram, [facility] Showing recent visits within past 365 [...] Depression Total Score: 0 01/21/20 2: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
--- OUTSIDE RECORDS SUMMARY | 2025-01-20 14:54 | XMS_ITS | Encounter Summary ---
Author Organization [facility] Address [address] [place] [address] Phone Care Team Providers Care Machine Printer Hose Name Role Phone Rhonda Leblanc APRN, PROFESSOR/NURSE ANESTHETIST Unavailable Dilan Moon MD Primary Care Provider [phone] Leticia David MD Unavailable Boom Ram Primary Care Provider Reason for Visit * Reason Comments Medication Refill Encounter Details Date Type Department Care Team (Late st Contact Info) Description 08/05/2020 Refill [facility] On[facility] [address] [place] [address] Lorenzo Naylor MD [address] [place] [address] Medication Refill Social History Tobacco [...] documented as of this encounter Care Teams Machine Printer Hose Relationship Specialty Start Date End Date Dilan Moon MD PCP - General Sports Medicine 08/08/19 01/19/22 Boom Ram, PAC [address] [place] [address] PCP - General Physician Mother Helper 01/20/22 Rhonda Leblanc, SPORTS ANCHOR, PROFESSOR/NURSE ANESTHETIST Nurse Practitioner Advanced Practice Nurse 11/20/15 Leticia David MD [address] [phone] Consulting Physician Endocrinology 09/28/21 documented as of this encounter
--- OUTSIDE RECORDS SUMMARY | 2025-01-20 14:54 | XMS_ITS | Encounter Summary ---
Author Organization [facility] Address [address] [place] [address] Phone Care Team Providers Care Soft Metals Hand Engraver Name Role Phone BenjiAnnelleonardo Seymour APRN, GREGG Unavailable Leticia David MD Unavailable Boom Ram Primary Care Provider Reason for Visit * Reason Comments Medication Refill Encounter Details Date Type Department Care Team (Late st Contact Info) Description 03/23/2023 Refill [facility] - Primary Care - Felix [address] [place] [address] Boom Ram PAC [address] [place] [address] Medication Refill Social History Tobacco [...] Depression Total Score: 0 01/21/20 2:00 PM SUPERVISOR SAMPLE documented as of this encounter Care Teams Soft Metals Hand Engraver Relationship Specialty Start Date End Date Boom Ram, PAC [address] [phone] PCP - General Physician General Forecaster 01/20/22 Rhonda Leblanc APRN, MARINE FIRER Nurse Practitioner Advanced Practice Nurse 11/20/15 Leticia David MD [address] [phone] Consulting Physician Endocrinology 09/28/21 documented as of this encounter
[2025-01-20 18:44] LABS: Immature Reticulocyte Fraction 8.6 % (3.0-15.9); Reticulocyte Hemoglobin Conten 34.1 pg (28.2-36.6); Reticulocytes Absolute 0.06 10^6/uL (0.02-0.10)
[2025-01-20 18:57] LABS: Iron 68 ug/dL (37-170)
[2025-01-20 19:06] LABS: Percent Iron Saturation 27 % (20-50)
[2025-01-20 20:09] LABS: Vitamin B12 > 1000.0 pg/mL (239-931)
== END 2025-01-20 14:53 | disposition home or self-care (01) ==
LOC: ANHGOSHLAB 14:52
PROVIDERS: PCP Family Medicine; Visit Provider Student in an Organized Health Care Education/Training Program
DX: D64.9 Anemia, unspecified (principal)
CPT/HCPCS: 36415; 82607; 82746; 83540; 83550; 85046